=== PATIENT | male | born 1970 | race Caucasian/White ===

== ENCOUNTER 2017-06-15 11:33 | Emergency (ER) | payer MEDICAID ==
--- NOTE | 2017-06-15 13:27 | ED Physician Documentation ---
History of Present Illness - Stated complaint Stated Complaint: R SIDE FACIAL PX - Chief complaint Chief Complaint: General - History obtained from History obtained from: Patient - History of Present Illness Timing: Other (47-year-old gentleman on lisinopril long-term for blood pressure presents with painful swelling under the right side of the tongue for 3 days not associated with fever or URI symptoms. There is no difficulty breathing.) Review of Systems Constitutional: denies: Fever, Chills Nose: denies: Rhinorrhea / runny nose, Congestion Cardiac: denies: Chest pain / pressure, Palpitations PD PAST MEDICAL HISTORY - Present Medications Home Medications: Ambulatory Orders Medication Instructions Recorded Confirmed Amox/Clav 875/125 [Augmentin] 1 each PO Q12H #20 tablet 06/15/17 HYDROcod/ACETAM 5/325 [[place] 5/325] 1 - 2 ea PO Q6H PRN #10 tablet 06/15/17 Lisinopril 40 mg PO DAILY 06/15/17 - Allergies Allergies/Adverse Reactions: Allergies Allergy/AdvReac Type Severity Reaction Status Date / Time No Known Drug Allergies Allergy Verified 06/15/17 11:42 PD ED PE NORMAL - Vitals Vital signs reviewed: Yes - General General: Alert and oriented X 3, No acute distress - HEENT HEENT: Other (He is mostly edentulous on the right mandible, no tender teeth. He does have focal sublingual edema on the right side with tenderness there most consistent with a salivary gland infection. Lisinopril related angioedema is considered, but that entity is painless and therefore inconsistent with this. ) - Neck Neck: Supple, no meningeal sign, No bony TTP - Neuro Neuro: Alert and oriented X 3, Normal speech Results - Vitals Vitals: Vital Signs - 24 hr 06/15/17 11:39 Temperature 36.5 C Heart Rate 91 Respiratory 18 Rate Blood Pressure 126/93 H O2 Saturation 98 Oxygen O2 Source Room air Departure - Departure Disposition: 01 Home, Self Care Clinical Impression: Sublingual infection Record reviewed to determine appropriate education?: Yes Prescriptions: Amox/Clav 875/125 [Augmentin] 1 each PO Q12H #20 tablet HYDROcod/ACETAM 5/325 [[place] 5/325] 1 - 2 ea PO Q6H PRN #10 tablet PRN Reason: Pain Comments: As discussed, this seems consistent with a salivary gland infection under the tongue on the right. Use lemon heads to keep the saliva moving. Return anytime if worse or if running a fever or for any difficulty breathing. Follow-up with your doctor on Sunday for recheck.
[2017-06-15 13:38] VITALS: BP 125/89
== END 2017-06-15 13:37 | disposition home or self-care (01) ==
LOC: ED 11:33
DX: K11.20 Sialoadenitis, unspecified (principal); I10 Essential (primary) hypertension
CPT/HCPCS: 99283

== ENCOUNTER 2018-01-31 15:43 | Emergency (ER) | payer MEDICAID ==
[2018-01-31] MEDS ORDERED: CLINDAMYCIN 150 MG CAPSULE PO STA (16:14)
--- NOTE | 2018-01-31 16:16 | ED Physician Documentation ---
History of Present Illness - Stated complaint Stated Complaint: L DOBBINS PX - Chief complaint Chief Complaint: Wound - History obtained from History obtained from: Patient - History of Present Illness Timing: How many days ago (several days) Pain level max: 3 Pain level now: 3 - Additonal information Additional information: Patient is a 47-year-old male who states that he injured his left dobbins And a few days ago started noticing redness that is now spreading on the left dobbins. No fevers. No vomiting. Has not taken anything for this. Nothing makes it better or worse. Review of Systems Constitutional: denies: Fever, Chills Skin: denies: Rash Musculoskeletal: denies: Neck pain, Back pain PD PAST MEDICAL HISTORY - Past Medical History Past Medical History: Yes Cardiovascular: Hypertension - Past Surgical History Past Surgical History: No - Present Medications Home Medications: Ambulatory Orders Medication Instructions Recorded Confirmed Amox/Clav 875/125 [Augmentin] 1 each PO Q12H #20 tablet 06/15/17 HYDROcod/ACETAM 5/325 [[place] 5/325] 1 - 2 ea PO Q6H PRN #10 tablet 06/15/17 Lisinopril 40 mg PO DAILY 06/15/17 Clindamycin HCl [Clindamycin 300MG 300 mg PO Q6H #40 capsule 01/31/18 CAP] - Allergies Allergies/Adverse Reactions: Allergies Allergy/AdvReac Type Severity Reaction Status Date / Time No Known Drug Allergies Allergy Verified 06/15/17 11:42 - Living Situation Living Arrangement: reports: At home - Social History Does the pt smoke?: Yes Smoking Status: Current every day smoker Does the pt drink ETOH?: Yes Does the pt have substance abuse?: No - Immunizations Immunizations are current?: Yes PD ED PE NORMAL - Vitals Vital signs reviewed: Yes - General General: Alert and oriented X 3, No acute distress - Derm Derm: Warm and dry - Extremities Extremities: Other (Left dobbins - 4 x 4 centimeter erythematous area without swelling, induration or fluctuance. No drainage.) - Neuro Neuro: Alert and oriented X 3 - Psych Psych: Normal mood, Normal affect Results - Vitals Vitals: Vital Signs - 24 hr 01/31/18 15:46 Temperature 36.7 C Heart Rate 91 Respiratory 18 Rate Blood Pressure 166/105 H O2 Saturation 100 Oxygen O2 Source Room air PD MEDICAL DECISION MAKING - ED course Complexity details: considered differential, d/w patient ED course: Patient is a 47-year-old male with cellulitis to the left anterior dobbins. Bactrim interacts with his lisinopril, therefore will place on clindamycin. He is well-appearing, nontoxic. Afebrile. Tetanus is up-to-date. Patient counseled regarding signs and symptoms for which I believe and urgent re- evaluation would be necessary. Patient with good understanding of and agreement to plan and is comfortable going home at this time This document was made in part using voice recognition software. While efforts are made to proofread this document, sound alike and grammatical errors may occur. Departure - Departure Disposition: 01 Home, Self Care Clinical Impression: Cellulitis Qualifiers: Site of cellulitis: extremity Site of cellulitis of extremity: lower extremity Laterality: left Qualified Code(s): L03.116 - Cellulitis of left lower limb Condition: Good Instructions: ED Infec Skin Cellulitis Follow-Up: your,doctor in 3 days for wound check [Other] Prescriptions: Clindamycin HCl [Clindamycin 300MG CAP] 300 mg PO Q6H #40 capsule Comments: Your prescription was sent to [facility] in [place]. Take all antibiotics until gone. Return if you worsen.
[2018-01-31 16:26] VITALS: BP 143/85
== END 2018-01-31 16:27 | disposition home or self-care (01) ==
LOC: ED 15:43
DX: L03.116 Cellulitis of left lower limb (principal); I10 Essential (primary) hypertension; F17.200 Nicotine dependence, unspecified, uncomplicated
CPT/HCPCS: 99283; A9270

== ENCOUNTER 2018-02-07 22:25 | Emergency (ER) | payer MEDICAID ==
[2018-02-07] MEDS ORDERED: VANCOMYCIN INJ 1 GM in SODIUM CHLORIDE 0.9% 500 ML IV STA (22:41)
[2018-02-07] MEDS ORDERED: ceFAZolin 2 GM/50 ML 2 GM/50 ML BAG IV SCH (22:45)
--- NOTE | 2018-02-07 22:48 | ED Physician Documentation ---
History of Present Illness - Stated complaint Stated Complaint: LT LEG PX - Chief complaint Chief Complaint: Ext Problem - History obtained from History obtained from: Patient, Family - History of Present Illness Timing: How many weeks ago (04/03) - Additonal information Additional information: 47-year-old male who has had some redness and pain on the anterior left calf for 2 and half weeks was seen in the emergency department 1 week ago and started on some clindamycin for cellulitis. He has had no significant improvement in the area of redness and over the last 2 days the redness has increased as well as pain. He states that over the past week his symptoms have been mostly abated but have not improved. He denies any fever nausea or vomiting but does feel fatigued. Review of Systems Constitutional: reports: Fatigue. denies: Fever, Chills, Myalgias Eyes: denies: Decreased vision Ears: denies: Ear pain Nose: denies: Rhinorrhea / runny nose, Congestion Throat: denies: Sore throat Cardiac: denies: Chest pain / pressure, Palpitations Respiratory: denies: Dyspnea, Cough GI: denies: Abdominal Pain, Nausea, Vomiting : denies: Dysuria, Frequency Skin: reports: Other (red tender swollen area left anterior dobbins) Musculoskeletal: reports: Extremity pain, Extremity swelling. denies: Neck pain, Back pain Neurologic: denies: Generalized weakness, Focal weakness, Numbness PD PAST MEDICAL HISTORY - Past Medical History Cardiovascular: Hypertension - Past Surgical History Past Surgical History: No - Present Medications Home Medications: Ambulatory Orders Medication Instructions Recorded Confirmed Lisinopril 40 mg PO DAILY 06/15/17 Clindamycin HCl [Clindamycin 300MG 300 mg PO Q6H #40 capsule 01/31/18 CAP] Cephalexin [Keflex] 500 mg PO Q6H #28 capsule 02/08/18 Sulfamethox/Trimeth 800/160 1 each PO BID #14 tablet 02/08/18 [Bactrim Ds 800/160] - Allergies Allergies/Adverse Reactions: Allergies Allergy/AdvReac Type Severity Reaction Status Date / Time No Known Drug Allergies Allergy Verified 02/07/18 22:31 - Social History Does the pt smoke?: Yes Smoking Status: Current every day smoker Does the pt drink ETOH?: Yes Does the pt have substance abuse?: No - Immunizations Immunizations are current?: Yes PD ED PE NORMAL - Vitals Vital signs reviewed: Yes (hypertensive) - General General: Alert and oriented X 3, No acute distress, Well developed/nourished - HEENT HEENT: Atraumatic, PERRL, EOMI - Respiratory Respiratory: No respiratory distress - Derm Derm: Normal color, Warm and dry - Extremities Extremities: No deformity, Other (There is erythema and tenderness over the anterior left calf centrally. There is an area of skin desquamation surrounding the erythema and the erythema has now extended past this border. There is no fluctuance to the area and no lymphangitic streaking. 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, No motor deficit, No sensory deficit, Normal speech Eye Opening: Spontaneous Motor: Obeys Commands Verbal: Oriented GCS Score: 15 - Psych Psych: Normal mood, Normal affect Results - Vitals Vitals: Vital Signs - 24 hr 02/07/18 22:28 Temperature 36.6 C Heart Rate 92 Respiratory 18 Rate Blood Pressure 164/94 H O2 Saturation 98 Oxygen O2 Source Room air - Labs Labs: Laboratory Tests 02/07/18 02/07/18 02/07/18 22:52 22:52 22:52 WBC 7.6 RBC 4.40 L Hgb 12.5 L Hct 36.7 L MCV 83.4 MCH 28.3 MCHC 34.0 RDW 16.3 H Plt Count 255 MPV 7.2 L Neut # (Auto) 4.6 Lymph # (Auto) 2.1 Saline # (Auto) 0.7 Eos # (Auto) 0.2 Baso # (Auto) 0.1 Absolute Nucleated RBC 0.00 Nucleated RBC % 0.0 Sodium 138 Potassium 3.7 Chloride 103 Carbon Dioxide 24 Anion Gap 11.0 BUN 14 Creatinine 0.7 Estimated GFR (MDRD) 120 Glucose 126 H Lactic Acid 1.2 Calcium 9.0 Total Bilirubin 0.7 AST 41 ALT 27 Alkaline Phosphatase 112 Total Protein 7.7 Albumin 3.8 Globulin 3.9 Albumin/Globulin Ratio 1.0 Lipase 40 PD MEDICAL DECISION MAKING - ED course Complexity details: reviewed results, re-evaluated patient, considered differential, d/w patient, d/w family ED course: 47-year-old male with no progress on treatment of cellulitis of his anterior calf with the use of clindamycin is administered intravenous vancomycin and Ancef and we will place him on some and flex as an outpatient. He has had a slow progression of symptoms despite outpatient treatment and I do not believe that inpatient treatment is indicated at this time. He is asked to return to the emergency department should he have failure of this treatment. Departure - Departure Disposition: 01 Home, Self Care Clinical Impression: Cellulitis Qualifiers: Site of cellulitis: extremity Site of cellulitis of extremity: lower extremity Laterality: left Qualified Code(s): L03.116 - Cellulitis of left lower limb Condition: Stable Instructions: ED Infec Skin Cellulitis Follow-Up: [facility] [Provider Group] [facility] [Provider Group] Prescriptions: Cephalexin [Keflex] 500 mg PO Q6H #28 capsule Sulfamethox/Trimeth 800/160 [Bactrim Ds 800/160] 1 each PO BID #14 tablet
[2018-02-07 22:58] LABS: BASOPHILS # (AUTO) 0.1 10^3/uL (0.0-0.1); BASOPHILS % (AUTO) 0.7 %; EOSINOPHILS # (AUTO) 0.2 10^3/uL (0.0-0.7); EOSINOPHILS % (AUTO) 2.3 %; HGB - HEMOGLOBIN 12.5 g/dL (14.0-18.0); LYMPHOCYTES # (AUTO) 2.1 10^3/uL (1.5-3.5); LYMPHOCYTES % (AUTO) 27.3 %; MEAN CORPUSCULAR HEMOGLOBIN 28.3 pg (27.0-31.0); MEAN CORPUSCULAR VOLUME 83.4 fL (80.0-94.0); MEAN PLATELET VOLUME 7.2 fL (7.4-11.4); MONOCYTES # (AUTO) 0.7 10^3/uL (0.0-1.0); MONOCYTES % (AUTO) 9.5 %; NEUTROPHILS # (AUTO) 4.6 10^3/uL (1.5-6.6); NEUTROPHILS % (AUTO) 60.2 %; PLT - PLATELET COUNT 255 10^3/uL (130-450); RED CELL DISTRIBUTION WIDTH 16.3 % (12.0-15.0); WHITE BLOOD COUNT 7.6 x10^3/uL (4.8-10.8)
[2018-02-07 23:08] LABS: ALBUMIN 3.8 g/dL (3.2-5.5); BILIRUBIN,TOTAL 0.7 mg/dL (0.2-1.0); CREATININE 0.7 mg/dL (0.6-1.2); TOTAL PROTEIN 7.7 g/dL (6.7-8.2)
[2018-02-08] MEDS ORDERED: ceFAZolin 2 GM/50 ML 2 GM/50 ML BAG IV STA (01:38)
[2018-02-08 02:26] VITALS: BP 162/95
== END 2018-02-08 02:28 | disposition home or self-care (01) ==
LOC: ED 22:25
DX: L03.116 Cellulitis of left lower limb (principal); I10 Essential (primary) hypertension; F17.200 Nicotine dependence, unspecified, uncomplicated
CPT/HCPCS: 36415; 80053; 83605; 83690; 85025; 87040; 96365; 96366; 96367; 99283; J0690; J3370

== ENCOUNTER 2018-03-02 19:47 | Emergency (ER) | payer SELFPAY ==
[2018-03-02] MEDS ORDERED: SULFAMETH/TRIMETH DS 800/160 MG TABLET PO STA (20:06)
[2018-03-02] MEDS ORDERED: cephALEXin 250 MG CAPSULE PO STA (20:06)
--- NOTE | 2018-03-02 20:08 | ED Physician Documentation ---
PD HPI LOWER EXT INJURY - Stated complaint Stated Complaint: LT LEG INFECTION - Chief complaint Chief Complaint: Ext Problem - History obtained from History obtained from: Patient - History of Present Illness PD HPI LOW EXT INJURY LOCATION: Left, Lower leg (He had a little scrape on the lower left leg about a month and a half ago and developed cellulitis. He was initially seen here and placed on clindamycin, he had no improvement with that but did have improvement pretty much back to normal after a course of Keflex and Bactrim. He has been off of antibiotics for about 2-1/2 weeks but over the last few days the area of cellulitis has grown again. He denies fevers or chills. 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 plus is leaning on his shins a lot.) Review of Systems Constitutional: denies: Fever, Chills Respiratory: reports: Reviewed and negative GI: reports: Reviewed and negative : reports: Reviewed and negative PD PAST MEDICAL HISTORY - Past Medical History Cardiovascular: Hypertension Derm: Other - Past Surgical History Past Surgical History: No - Present Medications Home Medications: Ambulatory Orders Medication Instructions Recorded Confirmed Lisinopril 40 mg PO DAILY 06/15/17 Clindamycin HCl [Clindamycin 300MG 300 mg PO Q6H #40 capsule 01/31/18 CAP] Cephalexin [Keflex] 500 mg PO Q6H #80 capsule 03/02/18 Sulfamethoxazole/Trimethoprim 1 each PO BID #40 tablet 03/02/18 [Sulfamethoxazole-Tmp Ds Tablet] - Allergies Allergies/Adverse Reactions: Allergies Allergy/AdvReac Type Severity Reaction Status Date / Time No Known Drug Allergies Allergy Verified 03/02/18 19:53 - Social History Does the pt smoke?: Yes Smoking Status: Current every day smoker Does the pt drink ETOH?: Yes Does the pt have substance abuse?: No - Immunizations Immunizations are current?: Yes - POLST Patient has POLST: No PD ED PE NORMAL - Vitals Vital signs reviewed: Yes - General General: Alert and oriented X 3, No acute distress - Extremities Extremities: Other (On the anterior left dobbins there is a 6 x 6 area of cellulitis that is well demarcated. There is kind of a scab at the top but no purulent drainage. There are 2 very small slightly firm areas which on bedside ultrasound [place] no fluid collections.) - Neuro Neuro: Alert and oriented X 3, Normal speech Results - Vitals Vitals: Vital Signs - 24 hr 03/02/18 19:50 Temperature 36.6 C Heart Rate 89 Respiratory 16 Rate Blood Pressure 155/90 H O2 Saturation 100 Oxygen O2 Source Nasal cannula Departure - Departure Disposition: Home, Self Care Clinical Impression: Cellulitis Qualifiers: Site of cellulitis: extremity Site of cellulitis of extremity: lower extremity Laterality: left Qualified Code(s): L03.116 - Cellulitis of left lower limb Condition: Good Record reviewed to determine appropriate education?: Yes Instructions: Cellulitis Dc Prescriptions: Cephalexin [Keflex] 500 mg PO Q6H #80 capsule Sulfamethoxazole/Trimethoprim [Sulfamethoxazole-Tmp Ds Tablet] 1 each PO BID #40 tablet Comments: Call your doctor to arrange a follow-up appointment, make the next available appointment. In the interim, return anytime if worse or if new symptoms develop. Your blood pressure was elevated today on check into the emergency department. This does not mean that you have hypertension, it is a common phenomenon to come to the emergency department and have elevated blood pressure. I recommend that you see your primary care physician within the week to have it rechecked when you are feeling better.
[2018-03-02 20:12] VITALS: BP 155/90
== END 2018-03-02 20:13 | disposition home or self-care (01) ==
LOC: ED 19:47
DX: L03.116 Cellulitis of left lower limb (principal); I10 Essential (primary) hypertension; F17.200 Nicotine dependence, unspecified, uncomplicated
CPT/HCPCS: 99283; A9270

== ENCOUNTER 2019-01-01 15:47 | Inpatient (IN) | payer MEDICAID ==
[~2019-01-01 15:47] MED LIST: DEXAMETHASONE 4 MG/ML VIAL IVP ONE; LIDOCAINE-MPF 2% 5 ML VIAL IM ONE; MIDAZOLAM 2 MG/2 ML VIAL IVP ONE; ONDANSETRON 4 MG/2 ML VIAL IVP ONE; PROPOFOL 200 MG/20 ML VIAL IVP ONE; fentaNYL 100 MCG/2 ML VIAL IVP ONE
[2019-01-01] MEDS ORDERED: ceFAZolin 1 GM in SODIUM CHLORIDE 0.9% MINIBAG 100 ML IV STA (18:33)
[2019-01-01] MEDS ORDERED: KETOROLAC 30 MG/ML VIAL IVP STA (18:33)
[2019-01-01] MEDS ORDERED: HYDROmorphone 1 MG/ML CARPUJECT IVP STA ×2 (18:34→19:48)
[2019-01-01 19:01] LABS: BASOPHILS % (AUTO) 0.3 %; EOSINOPHILS % (AUTO) 0.8 %; HGB - HEMOGLOBIN 11.9 g/dL (14.0-18.0); LYMPHOCYTES % (AUTO) 6.4 %; MEAN CORPUSCULAR HEMOGLOBIN 28.7 pg (27.0-31.0); MEAN CORPUSCULAR HGB CONC 33.4 g/dL (32.0-36.0); MEAN CORPUSCULAR VOLUME 85.8 fL (80.0-94.0); MEAN PLATELET VOLUME 9.7 fL (7.4-11.4); MONOCYTES % (AUTO) 14.3 %; NEUTROPHILS % (AUTO) 76.9 %; PLT - PLATELET COUNT 166 10^3/uL (130-450); RED BLOOD COUNT 4.15 10^6/uL (4.70-6.10); RED CELL DISTRIBUTION WIDTH 14.3 % (12.0-15.0); WHITE BLOOD COUNT 13.3 x10^3/uL (4.8-10.8)
[2019-01-01 19:06] LABS: ALBUMIN 3.1 g/dL (3.2-5.5); ALBUMIN/GLOBULIN RATIO 0.8 (1.0-2.2); BILIRUBIN,TOTAL 1.9 mg/dL (0.2-1.0); CALCIUM 8.7 mg/dL (8.5-10.3); CREATININE 0.7 mg/dL (0.6-1.2); TOTAL PROTEIN 7.2 g/dL (6.7-8.2)
[2019-01-01 19:07] LABS: ABNORMAL LYMPHS % (MANUAL) 0 %
[2019-01-01 19:22] LABS: BAND NEUTROPHILS % (MANUAL) 8 %; DIFFERENTIAL COMMENT MANUAL DIFFERENTIAL; EOSINOPHILS # (MANUAL) 0.1 10^3/uL (0-0.7); LYMPHOCYTES # (MANUAL) 0.9 10^3/uL (1.5-3.5); LYMPHOCYTES % (MANUAL) 7 %; MONOCYTES # (MANUAL) 1.9 10^3/uL (0.0-1.0); PLATELET ESTIMATE, MANUAL NORMAL (130-450,000) (NORMAL); PLATELET MORPHOLOGY NORMAL APPEARANCE (NORMAL); RBC MORPHOLOGY (MULTIPLE) NORMAL APPEARANCE (NORMAL)
[2019-01-01] MEDS ORDERED: ONDANSETRON 4 MG/2 ML VIAL IVP PRN (20:14)
[2019-01-01] MEDS ORDERED: HYDROmorphone 1 MG/ML CARPUJECT IVP PRN (20:14)
[2019-01-01] MEDS ORDERED: LACTATED RINGERS 2,449.41 ML IV STA (20:16)
[2019-01-01] MEDS ORDERED: POTASSIUM CHLORIDE 20 MEQ TABLET PO STA (20:23)
[2019-01-01] MEDS ORDERED: IOVERSOL 320 100 ML VIAL IVP ONE ×2 (20:27→20:45)
--- NOTE | 2019-01-01 20:34 | HISTORY & PHYSICAL EXAMINATION ---
Chief Complaint - Chief Complaint Chief Complaint: Right forearm pain and swelling History of Present Illness - Admitted From Admitted From:: Home - History Obtained From Records Reviewed: Yes History obtained from: Patient, ER Physician, EMR - History of Present Illness HPI Comment/Other: This is a 48 year old male with a past medical history significant for hypertension and alcohol use who presents from home complaining of worsening swelling, erythema, and pain of his right forearm. He reports the pain began Sunday and was initially located in his right wrist. He went to the ER where he was treated for acute gout. He states he went home but his pain never really improved. He then noted swelling in his right hand and redness. Today the pain became much more severe and the swelling along with erythema spread to his right elbow over 5-6 hours. He reports numbness of his right finger tips. He has severe pain with palpation of the right forearm and movement of his digits. The dilaudid he received in the ER today provided some relief but the pain persists. He reports no trauma to the extremity. He was working on his deck last week but does not recall major trauma to his extremities. He does have a few minor scrapes on his arms. He reports no fevers or chills. Does endorse some nausea today but no emesis. He is not a diabetic. He had cellulitis of his left lower extremity in the past. He states he was not admitted and was treated with oral antibiotics. He denies IV drug use. He does drink alcohol daily for quite some time but reports only having half a drink this morning since Sunday due to his discomfort. He denies going through withdrawal in the past. In the ER, he was afebrile, tachycardic, and slightly hypertensive. Labs were significant for a white count of 13.3 with a left shift and 8% bands. ESR is elevated at 72. He is hyponatremic and hypokalemic. BUN elevated at 27 with a normal creatinine. T bili elevated at 1.9 and AST at 44. Normal CK's. Medicine was consulted for admission given the severity of his cellulitis. History - Past Medical History Cardiovascular: reports: Hypertension Respiratory: reports: None Neuro: reports: None Endocrine/Autoimmune: reports: None GI: reports: None Derm: reports: Other (Piror history of cellulitis) MRSA Hx?: No - Family & Social History Family History Comment/Other: There is family history of heart diseases on his mother's side. His two uncles had WA's in their 40's. His maternal grandfather also had a WA. Living arrangement: At home Social History Notes: He lives on [address] [facility] [address]. He does smoke. Drinks a 6 pack of beer daily. Reports occasional marijuana use. Denies IV drug use. - Substance History Use: Uses substance without health or social issues: Alcohol - POLST Patient has POLST: No Meds/Allgy - Home Medications Home Medications: Ambulatory Orders Medication Instructions Recorded Confirmed Lisinopril 40 mg PO DAILY 06/15/17 Hydrocodone/Acetaminophen 1 - 2 each PO Q6H PRN #14 tablet 12/28/18 [Hydrocodon-Acetaminophen 5-325] Indomethacin 50 mg PO Q6HR PRN #30 capsule 12/28/18 - Allergies Allergies/Adverse Reactions: Allergies Allergy/AdvReac Type Severity Reaction Status Date / Time No Known Drug Allergies Allergy Verified 01/01/19 15:57 Review of Systems - Constitutional Constitutional: reports: Fatigue, Malaise. denies: Fever, Chills - Cardiovascular Cariovascular: denies: Chest pain, Exertional dyspnea, Decr. exercise tolerance - Respiratory Respiratory: denies: Cough, SOB at rest, SOB with exertion - Gastrointestinal Gastrointestinal: reports: Nausea. denies: Abdominal pain, Diarrhea, Vomiting - Genitourinary Genitourinary: denies: Dysuria, Frequency - Musculoskeletal Musculoskeletal: reports: Stiffness, Limited range of motion - Integumentary Integumentary: reports: Other (Redness of right extremity) - Neurological Neurological: reports: Numbness. denies: General weakness, Focal weakness - All Other Systems All Other Systems: reports: Reviewed and negative Prior Level of Functionality: Independent with ADL's. Exam - Vital Signs Reviewed Vital Signs: Yes Vital Signs: Vital Signs x48h Temp Pulse Resp BP Pulse Ox 01/01/19 20:00 103 H 16 149/83 H 98 01/01/19 19:30 103 H 16 137/79 H 98 01/01/19 19:04 99 19 148/76 H 100 01/01/19 18:16 95 16 132/76 H 100 01/01/19 15:57 36.6 C 98 18 138/75 H 100 - Physical Exam General Appearance: positive: No acute distress, Alert Eyes Bilateral: positive: Normal inspection ENT: positive: ENT inspection nml Neck: positive: Nml inspection Respiratory: positive: No respiratory distress. negative: Wheezes, Rales, Rhonchi Cardiovascular: positive: Regular rate & rhythm, No murmur, Tachycardia. negative: Bradycardia, Systolic murmur, Diastolic murmur Peripheral Pulses: positive: Other (Difficult to palpate right radial artery due to significant edema) Abdomen: positive: Non-tender, No distention. negative: Tenderness, Guarding, Rebound Skin: positive: Warm, Dry, Other (Erythem of the right forearm extending from the dorsum of the hand to the right elbow.) Extremities: positive: No pedal edema, Other (There is significant edema with a few small bullae of the right forearm. No crepitus appreciated. Decreased range of motion due to the edema. Capillar refill of right digits <2 seconds. The arm is tender to palpation. Sensation is intact.). negative: Non-tender, Full ROM, Nml appearance Neurologic/Psychiatric: positive: Oriented x3, Sensation nml. negative: Disoriented to person, Disoriented to place, Disoriented to time, Weakness, Sensory loss Sepsis Event Note (H) - Evaluation Current Stage of Sepsis: Sepsis Possible source of Sepsis: positive: Skin/soft tissue - Sepsis Criteria Sepsis Criteria: Recorded Heart Rate greater than 90 bpm, WBC count greater than 12,000 or less than 4000 Conclusion/Plan - Problem List (1) Sepsis due to cellulitis Conclusion/Plan: This is secondary to his right forearm cellulitis. Presented with leukocytosis with bands along with tachycardia. He is not febrile or hypotensive. - Broad spectrum antibiotic coverage with Vancomycin, Unasyn and Clindamycin - IV hydration including 30ml/kg bolus - Blood cultures (2) Right forearm cellulitis Conclusion/Plan: This is the source of his sepsis. This is nonpurulent cellulitis but there is extensive edema, pain and bullae over the dorsum of the hand are noted. His neurovascularly intact although he does report some numbness in his finger tips. ESR and CRP elevated. Normal CK, AST is only minimally elevated. Given the progression of his edema and pain, will need to evaluate for nec fasc. LRINEC score is 3 but CRP is pending. Receiving Cefazolin in the ER. - Clindamycin, Unasyn and Vancomycin IV given concern for possible nec fasc - Obtain CT of the right upper extremity to eval for gas formation which may be concerning for nec fasc - Check CRP - Neurovascular checks - Blood cultures - Trend CK and AST (3) Hyponatremia Conclusion/Plan: Likely hypovolemic hyponatremia. Sodium 132. This should improve with IV hydration. (4) Hypokalemia Conclusion/Plan: K is 3.3 on admission. Will replace orally. (5) Alcohol use Conclusion/Plan: Drinks a 6 pack of beer daily but has decreased his consumption over last few days. Will monitor for alcohol withdrawal. - Lab Results Lab results reviewed: Yes Fish Bones: 01/01/19 18:40 01/01/19 18:40 Core Measures - Anticipated LOS I expect patient to be DC'd or transferred within 96 hours.: Yes - Issues Hospital Issues and Management Plan: Cellulitis requiring IV antibiotics. - DVT/VTE - Prophylaxis VTE/DVT Device ordered at admit?: Yes VTE/DVT Prophylaxis med ordered at admit?: Yes
[2019-01-01] MEDS: LACTATED RINGERS 1,000 ML IV SCH (21:11)
[2019-01-01 21:16] LABS: GLUCOSE, URINE (UA) NEGATIVE (NEGATIVE); KETONES,URINE (UA) NEGATIVE (NEGATIVE); LEUKOCYTE ESTERASE, URINE NEGATIVE (NEGATIVE); NITRITE,URINE NEGATIVE (NEGATIVE); OCCULT BLOOD,URINE SMALL (NEGATIVE); PROTEIN,URINE NEGATIVE (NEGATIVE); UROBILINOGEN,URINE 2 E.U./dL (NORMAL)
[2019-01-01 21:28] LABS: BILIRUBIN,URINE NEGATIVE (NEGATIVE); CLARITY,URINE CLEAR (CLEAR); ICTOTEST,URINE NEGATIVE
[2019-01-01 21:29] LABS: BACTERIA,URINE Rare /HPF (None Seen); RBC,URINE 0-5 /HPF (0-5); SQUAMOUS EPITHELIAL CELL,UR FEW Squamous (<= Few)
[2019-01-01] MEDS: CLINDAMYCIN 600 MG/50 ML 50 ML IV SCH (22:07)
[2019-01-01] MEDS: SODIUM CHLORIDE FLUSH 0.9% 10 ML SYRINGE IVP PRN (22:11)
--- NOTE | 2019-01-01 22:14 | CT Report ---
Reason: Right forearm cellulitis. Eval for Nec Fasc. Procedure Date: 01/01/2019 Accession Number: [id number] / [id number] Procedure: CT - UPPER EXTREMITY W - RT CPT Code: FULL RESULT: EXAM: RIGHT UPPER EXTREMITY CT WITH CONTRAST EXAM DATE: 01/01/2019 08:37 PM. CLINICAL HISTORY: Right forearm cellulitis. Redness and swelling. Evaluate for necrotizing fasciitis. COMPARISON: DUPLEX EXT VEINS RIGHT 12/28/2018 12:46 PM WRIST 4 VIEW RT 12/28/2018 2:24 PM. TECHNIQUE: Thin-section axial images were acquired of the upper extremity from above the elbow through the hand after administration of intravenous contrast. IV contrast: Yes. Post-processing: Coronal and sagittal reformats. Other: None. In accordance with CT protocol optimization, one or more of the following dose reduction techniques were utilized for this exam: automated exposure control, adjustment of mA and/or KV based on patient size, or use of iterative reconstructive technique. FINDINGS: Bones: No fracture or CT evidence of osteomyelitis. Joints: The visualized joint spaces are normal. Soft tissues: Severe subcutaneous edema without soft tissue gas. There are large fluid loculations surrounding the extensor tendons posteriorly at the level of the carpus. A couple of small intramuscular fluid collections within the intrinsic muscles of the hand palmar to the second through fourth metacarpals measuring up to 17 x 5 mm combined on image 182 series 14 and extending 20 mm in craniocaudal dimension on image 16 series 38. Additional small loculations of fluid adjacent to the base of the first metacarpal. Additional deep space edema/loculated fluid between the distal radius and ulna on axial images 128 through 140, measuring approximately 19 x 9 x 45 mm. No proximal forearm abscess identified. No vascular thrombosis seen. IMPRESSION: Severe right forearm soft tissue infection, which involves the subcutaneous tissues but crosses fascial planes to involve the extensor tendons posterior to the wrist (suspect tenosynovitis} and is within and around musculature in the distal forearm and palmar aspect of the hand at the level of the second through fourth metacarpals (pyomyositis). No tracking soft tissue gas seen. Surgical consultation suggested. ELIZABETH The critical result notification system was initiated by Dr. Nathan Bravo at 10:05 PM on 01/01/2019. The above critical result findings were discussed with Edward Gates by Dr. Nathan Bravo at 10:13 PM on 01/01/2019.
[2019-01-01] MEDS ORDERED: VANCOMYCIN INJ 1.25 GM in SODIUM CHLORIDE 0.9% 500 ML IV SCH (23:00)
--- NOTE | 2019-01-02 00:09 | ED Physician Documentation ---
PD HPI SKIN - Stated complaint Stated Complaint: R HAND SWELLING - Chief complaint Chief Complaint: Cardiac - History obtained from History obtained from: Patient - History of Present Illness Timing - onset: How many days ago (He has had 4 to 5 days of redness and swelling on the dorsum of the wrist and hand initially after doing some desk work and repetitive motion. He was seen in the ER 4 days ago with diagnosis of likely gout in the wrist as he has had a history of gout in the foot and did not have any direct impact or injury nor skin lesions. He was treated with anti- inflammatories and pain meds. The patient states he is worsened over the last couple of days significantly so with redness and swelling up to the level of the elbow on the whole forearm and wrist and with some swelling in the fingers as well. He has had increased pain in it today.) Timing - duration: Days (4-5) Timing - details: Gradual onset, Still present Location: RUE Quality / character: Painful, Discolored (red), Swelling, Other (some blisters starting on dorsum hand today.). No: Draining Improved by: No: Oral steroids Review of Systems Constitutional: reports: Myalgias. denies: Fever, Chills Nose: denies: Rhinorrhea / runny nose, Congestion Throat: denies: Sore throat Respiratory: denies: Cough GI: denies: Nausea, Vomiting, Diarrhea Musculoskeletal: reports: Extremity pain, Extremity swelling (right forearm/wrist) PD PAST MEDICAL HISTORY - Past Medical History Past Medical History: Yes Cardiovascular: Hypertension Respiratory: None Neuro: None Endocrine/Autoimmune: None GI: None Derm: Other (Piror history of cellulitis) - Past Surgical History Past Surgical History: No - Present Medications Home Medications: Ambulatory Orders Medication Instructions Recorded Confirmed Lisinopril 40 mg PO DAILY 06/15/17 Hydrocodone/Acetaminophen 1 - 2 each PO Q6H PRN #14 tablet 12/28/18 [Hydrocodon-Acetaminophen 5-325] Indomethacin 50 mg PO Q6HR PRN #30 capsule 12/28/18 - Allergies Allergies/Adverse Reactions: Allergies Allergy/AdvReac Type Severity Reaction Status Date / Time No Known Drug Allergies Allergy Verified 01/01/19 15:57 - Social History Does the pt smoke?: Yes Smoking Status: Current every day smoker Does the pt drink ETOH?: Yes Does the pt have substance abuse?: No - Immunizations Immunizations are current?: Yes - POLST Patient has POLST: No PD ED PE NORMAL - Vitals Vital signs reviewed: Yes - General General: Alert and oriented X 3, No acute distress (He does appear uncomfortable due to the hand and forearm pain.), Well developed/nourished - Neck Neck: Supple, no meningeal sign, No adenopathy - Cardiac Cardiac: RRR, No murmur - Respiratory Respiratory: Clear bilaterally - Abdomen Abdomen: Soft, Non tender - Derm Derm: Normal color, Warm and dry - Extremities Extremities: Other (The right dorsum of the hand and wrist onto the forearm and up to the area of the elbow shows redness and swelling. There is some more tense swelling on the dorsum of the hand with early blistering. There are no obvious purulence. His fingers are swollen as well with normal sensation. He has diminished movement for full flexion and extension due to swelling of the hand and fingers. There is somewhat delayed capillary refill in the fingers but is still present under 2 seconds. The radial and ulnar pulses are palpable) - Neuro Neuro: Alert and oriented X 3, No motor deficit, No sensory deficit, Normal speech Results - Vitals Vitals: Vital Signs - 24 hr 01/01/19 01/01/19 01/01/19 15:57 18:16 19:04 Temperature 36.6 C Heart Rate 98 95 99 Respiratory 18 16 19 Rate Blood Pressure 138/75 H 132/76 H 148/76 H O2 Saturation 100 100 100 01/01/19 01/01/19 19:30 20:00 Temperature Heart Rate 103 H 103 H Respiratory 16 16 Rate Blood Pressure 137/79 H 149/83 H O2 Saturation 98 98 Oxygen O2 Source Room air - Labs Labs: Laboratory Tests 01/01/19 01/01/19 01/01/19 18:40 18:40 18:40 WBC 13.3 H RBC 4.15 L Hgb 11.9 L Hct 35.6 L MCV 85.8 MCH 28.7 MCHC 33.4 RDW 14.3 Plt Count 166 MPV 9.7 Neut # (Auto) Not Reportable Lymph # (Auto) Not Reportable [place] # (Auto) Not Reportable Eos # (Auto) Not Reportable Baso # (Auto) Not Reportable Absolute Nucleated RBC Not Reportable Total Counted 100 Band Neuts % (Manual) 8 Abnorm Lymph % (Manual) 0 Nucleated RBC % Not Reportable Neutrophils # (Manual) 10.4 H Lymphocytes # (Manual) 0.9 L Monocytes # (Manual) 1.9 H Eosinophils # (Manual) 0.1 Basophils # (Manual) 0.0 Differential Comment MANUAL DIFFERENTIAL Manual Slide Review Indicated Platelet Estimate NORMAL (130-450,000) Platelet Morphology NORMAL APPEARANCE RBC Morph Micro Appear NORMAL APPEARANCE ESR 72 H Sodium 132 L Potassium 3.3 L Chloride 97 L Carbon Dioxide 25 Anion Gap 10.0 BUN 27 H Creatinine 0.7 Estimated GFR (MDRD) 119 Glucose 107 H Calcium 8.7 Total Bilirubin 1.9 H AST 44 H ALT 51 Alkaline Phosphatase 142 H Total Creatine Kinase 213 C-Reactive Protein Total Protein 7.2 Albumin 3.1 L Globulin 4.1 Albumin/Globulin Ratio 0.8 L Lipase 48 01/01/19 18:40 WBC RBC Hgb Hct MCV MCH MCHC RDW Plt Count MPV Neut # (Auto) Lymph # (Auto) [place] # (Auto) Eos # (Auto) Baso # (Auto) Absolute Nucleated RBC Total Counted Band Neuts % (Manual) Abnorm Lymph % (Manual) Nucleated RBC % Neutrophils # (Manual) Lymphocytes # (Manual) Monocytes # (Manual) Eosinophils # (Manual) Basophils # (Manual) Differential Comment Manual Slide Review Platelet Estimate Platelet Morphology RBC Morph Micro Appear ESR Sodium Potassium Chloride Carbon Dioxide Anion Gap BUN Creatinine Estimated GFR (MDRD) Glucose Calcium Total Bilirubin AST ALT Alkaline Phosphatase Total Creatine Kinase C-Reactive Protein 27.0 H Total Protein Albumin Globulin Albumin/Globulin Ratio Lipase PD MEDICAL DECISION MAKING - ED course Complexity details: reviewed results, considered differential (The patient has had progressive redness swelling of not only the wrist but now into the forearm and up to the elbow. He has significant edema in the area with redness. He denies any nausea or fever. He has discomfort with moving his fingers as it correia s feel like stiffness in the hand and wrist. His fingers are little bit swollen. They still have some capillary refill though it is a little bit delayed. There is sensation in the fingertips. The CK is normal suggesting against a compartment syndrome or necrotizing fasciitis.), d/w patient, d/w executive consultant Departure - Departure Disposition: ED Place in Observation Clinical Impression: Right forearm cellulitis Condition: Stable Discharge Date/Time: 01/01/19 20:50
[2019-01-02] MEDS: AMPICILLIN/SULBACTAM 3 GM in SODIUM CHLORIDE 0.9% MINIBAG 100 ML IV SCH ×2 (00:26→08:12)
[2019-01-02] MEDS: KETOROLAC 30 MG/ML VIAL IVP PRN ×4 (00:30→21:12)
[2019-01-02] MEDS: SODIUM CHLORIDE FLUSH 0.9% 10 ML SYRINGE IVP SCH ×3 (00:37→17:30)
[2019-01-02] MEDS: HYDROmorphone 1 MG/ML CARPUJECT IVP PRN ×7 (00:42→21:12)
[2019-01-02] MEDS: SODIUM CHLORIDE FLUSH 0.9% 10 ML SYRINGE IVP PRN ×2 (03:47→12:21)
[2019-01-02 05:54] LABS: BASOPHILS % (AUTO) 0.2 %; EOSINOPHILS % (AUTO) 0.7 %; HGB - HEMOGLOBIN 11.9 g/dL (14.0-18.0); LYMPHOCYTES % (AUTO) 6.7 %; MEAN CORPUSCULAR HEMOGLOBIN 28.3 pg (27.0-31.0); MEAN CORPUSCULAR HGB CONC 32.3 g/dL (32.0-36.0); MEAN CORPUSCULAR VOLUME 87.4 fL (80.0-94.0); MEAN PLATELET VOLUME 9.7 fL (7.4-11.4); MONOCYTES % (AUTO) 15.6 %; NEUTROPHILS % (AUTO) 74.6 %; PLT - PLATELET COUNT 158 10^3/uL (130-450); RED BLOOD COUNT 4.21 10^6/uL (4.70-6.10); RED CELL DISTRIBUTION WIDTH 14.7 % (12.0-15.0); WHITE BLOOD COUNT 15.1 x10^3/uL (4.8-10.8)
[2019-01-02] MEDS: CLINDAMYCIN 600 MG/50 ML 50 ML IV SCH ×3 (05:55→21:02)
[2019-01-02 05:56] LABS: ABNORMAL LYMPHS % (MANUAL) 0 %; BAND NEUTROPHILS % (MANUAL) 0 %
[2019-01-02 06:08] LABS: CALCIUM 8.3 mg/dL (8.5-10.3); CREATININE 0.7 mg/dL (0.6-1.2); MAGNESIUM 2.2 mg/dL (1.7-2.8); PHOSPHORUS 4.5 mg/dL (2.5-4.6)
[2019-01-02 06:14] LABS: EOSINOPHILS # (MANUAL) 0.2 10^3/uL (0-0.7); LYMPHOCYTES # (MANUAL) 1.2 10^3/uL (1.5-3.5); LYMPHOCYTES % (MANUAL) 8 %; MONOCYTES # (MANUAL) 2.3 10^3/uL (0.0-1.0)
[2019-01-02 06:15] LABS: DIFFERENTIAL COMMENT MANUAL DIFFERENTIAL; PLATELET ESTIMATE, MANUAL NORMAL (130-450,000) (NORMAL); PLATELET MORPHOLOGY NORMAL APPEARANCE (NORMAL); RBC MORPHOLOGY (MULTIPLE) NORMAL APPEARANCE (NORMAL)
--- NOTE | 2019-01-02 08:50 | PROVIDER PROGRESS NOTE ---
Subjective - Prog Note Date Prog Note Date: 01/02/19 Prog Note Time: 08:47 - Subjective Pt reports feeling: Improved Subjective: much less swelling of forearm but hand still hot and tender. Pain was unbearable last night at 10/10 and down to 6/10 this am. Current Medications - Current Medications Current Medications: Active Medications Acetaminophen (Tylenol) 650 mg PO Q4HR PRN PRN Reason: Pain 1 to 4 Heparin Sodium (Porcine) () 5,000 unit SUBQ BID FORMERLY [facility], [facility]1983 Last Admin: 01/02/19 09:18 Dose: 5,000 unit Hydromorphone HCl (Dilaudid Inj Carp) 2 mg IVP Q2HR PRN PRN Reason: Pain 8 to 10 Last Admin: 01/02/19 06:45 Dose: 2 mg Lactated Ringer's (Lr) 1,000 mls @ 100 mls/hr IV .Q10H [facility], [facility] Last Admin: 01/01/19 21:11 Dose: 100 mls/hr Clindamycin Phosphate (Cleocin 600 Mg/50 Ml) 50 mls @ 100 mls/hr IV Q8HR [facility], [facility] Last Infusion: 01/02/19 06:25 Dose: Infused Vancomycin HCl 1.25 gm/ Sodium (Chloride) 250 mls @ 250 mls/hr IV Q12H [facility], [facility] Last Admin: 01/02/19 10:01 Dose: 250 mls/hr Piperacillin Sod/Tazobactam (Sod 4.5 gm/ Sodium Chloride) 100 mls @ 200 mls/hr IV Q6H [facility], [facility] Ketorolac Tromethamine (Toradol Inj (30mg)) 30 mg IVP Q6HR PRN PRN Reason: PAIN Stop: 01/06/19 22:48 Last Admin: 01/02/19 06:45 Dose: 30 mg Ondansetron HCl (Zofran Inj) 4 mg IVP Q6HR PRN PRN Reason: Nausea / Vomiting Multivit/Folic Acid/Iron (Trinatal Rx 1) 1 tab PO DAILYWM [facility] Sodium Chloride (Normal Saline Flush 0.9%) 10 ml IVP PRN PRN PRN Reason: NEEDED PER PROVIDER ORDERS Last Admin: 01/02/19 03:47 Dose: 10 ml Sodium Chloride (Normal Saline Flush 0.9%) 10 ml IVP 0100,0900,1700 [facility] Last Admin: 01/02/19 09:06 Dose: Not Given Thiamine HCl (Vitamin B-1) 100 mg PO DAILY [facility] Lisinopril 40 mg PO DAILY 06/15/17 Objective - Vital Signs/Intake & Output Reviewed Vital Signs: Yes Vital Signs: Vital Signs x48h Temp Pulse Resp BP Pulse Ox 01/02/19 07:56 37 C 99 18 111/70 98 01/02/19 06:54 37.8 C H 99 16 118/65 97 01/02/19 05:00 37.0 C 66 16 114/58 L 100 01/02/19 02:50 36.7 C 101 H 18 121/90 H 99 01/02/19 00:50 37.1 C 107 H 18 110/79 95 Intake & Output: Intake & Output 12/30/18 12/31/18 01/01/19 01/02/19 23:59 23:59 23:59 23:59 Intake Total 2799.41 650 Balance 2799.41 650 - Objective General Appearance: positive: No acute distress, Alert Eyes Bilateral: positive: PERRL, EOMI ENT: positive: Pharynx nml Neck: positive: No JVD. negative: Stiff neck, Carotid bruit Respiratory: positive: Chest non-tender. negative: Wheezes, Rales, Rhonchi Cardiovascular: positive: Regular rate & rhythm, Tachycardia. negative: Gallop/S4, Friction rub Abdomen: positive: Non-tender, No organomegaly, Nml bowel sounds, No distention Skin: positive: Warm, Diaphoresis Extremities: positive: Other (Right forearm swollen in comparison to left. Twice the size of the left. However the hard induration is improved in the skin and muscles are now soft. Right hand continues to be very swollen, bullous lesions over the dorsum of the hand are developing. Can barely flex extend actively. He will not let me passively move his wrist and fingers. Hot, red to touch. No ecchymosis, no petechiae. Capillary refill is 1 seconds over the fingertips.) Neurologic/Psychiatric: positive: Oriented x3, CN's nml (2-12), Motor nml (No tremors, jerking, anxiety.) - Lab Results Fish Bones: 01/02/19 05:37 01/02/19 05:37 Other Labs: Lab Results x24hrs 01/02/19 01/02/19 01/01/19 Range/Units 05:37 05:37 23:50 WBC 15.1 H (4.8-10.8) x10^3/uL RBC 4.21 L (4.70-6.10) 10^6/uL Hgb 11.9 L (14.0-18.0) g/dL Hct 36.8 L (42.0-52.0) % MCV 87.4 (80.0-94.0) fL MCH 28.3 (27.0-31.0) pg MCHC 32.3 (32.0-36.0) g/dL RDW 14.7 (12.0-15.0) % Plt Count 158 (130-450) 10^3/uL MPV 9.7 (7.4-11.4) fL Neut # (Auto) Not Reportable Lymph # (Auto) Not Reportable [place] # (Auto) Not Reportable Eos # (Auto) Not Reportable Baso # (Auto) Not Reportable Absolute Nucleated RBC Not Reportable Total Counted 100 Band Neuts % (Manual) 0 (0 - 10) % Abnorm Lymph % (Manual) 0 % Nucleated RBC % Not Reportable Neutrophils # (Manual) 11.5 H (1.5-6.6) 10^3/uL Lymphocytes # (Manual) 1.2 L (1.5-3.5) 10^3/uL Monocytes # (Manual) 2.3 H (0.0-1.0) 10^3/uL Eosinophils # (Manual) 0.2 (0-0.7) 10^3/uL Basophils # (Manual) 0.0 (0-0.1) 10^3/uL Differential Comment MANUAL DIFFERENTIAL Manual Slide Review WBC Morphology NORMAL APPEARANCE (NORMAL) Platelet Estimate NORMAL (130-450,000) (NORMAL) Platelet Morphology NORMAL APPEARANCE (NORMAL) RBC Morph Micro Appear NORMAL APPEARANCE (NORMAL) ESR (0-20) mm/Hr Sodium 133 L (135-145) mmol/L Potassium 4.0 (3.5-5.0) mmol/L Chloride 99 L (101-111) mmol/L Carbon Dioxide 24 (21-32) mmol/L Anion Gap 10.0 (6-13) BUN 20 (6-20) mg/dL Creatinine 0.7 (0.6-1.2) mg/dL Estimated GFR (MDRD) 119 (>89) Glucose 111 H (70-100) mg/dL Lactic Acid (0.5-2.2) mmol/L Calcium 8.3 L (8.5-10.3) mg/dL Phosphorus 4.5 (2.5-4.6) mg/dL Magnesium 2.2 (1.7-2.8) mg/dL Total Bilirubin (0.2-1.0) mg/dL AST (10-42) IU/L ALT (10-60) IU/L Alkaline Phosphatase (42-121) IU/L Total Creatine Kinase 179 (22-269) IU/L C-Reactive Protein (0-1.0) mg/dL Total Protein (6.7-8.2) g/dL Albumin (3.2-5.5) g/dL Globulin (2.1-4.2) g/dL Albumin/Globulin Ratio (1.0-2.2) Lipase (22-51) U/L Urine Color Urine Clarity (CLEAR) Urine pH (5.0-7.5) PH Ur Specific [place] (1.002-1.030) Urine Protein (NEGATIVE) mg/dL Urine Glucose (UA) (NEGATIVE) mg/dL Urine Ketones (NEGATIVE) mg/dL Urine Occult Blood (NEGATIVE) Urine Nitrite (NEGATIVE) Urine Bilirubin (NEGATIVE) Urine Urobilinogen (NORMAL) E.U./dL Ur Leukocyte Esterase (NEGATIVE) Urine RBC (0-5) /HPF Urine WBC (0-3) /HPF Ur Squamous Epith Cells (<= Few) Urine Bacteria (None Seen) /HPF 01/01/19 01/01/19 01/01/19 Range/Units 23:50 21:05 18:40 WBC (4.8-10.8) x10^3/uL RBC (4.70-6.10) 10^6/uL Hgb (14.0-18.0) g/dL Hct (42.0-52.0) % MCV (80.0-94.0) fL MCH (27.0-31.0) pg MCHC (32.0-36.0) g/dL RDW (12.0-15.0) % Plt Count (130-450) 10^3/uL MPV (7.4-11.4) fL Neut # (Auto) Lymph # (Auto) [place] # (Auto) Eos # (Auto) Baso # (Auto) Absolute Nucleated RBC Total Counted Band Neuts % (Manual) (0 - 10) % Abnorm Lymph % (Manual) % Nucleated RBC % Neutrophils # (Manual) (1.5-6.6) 10^3/uL Lymphocytes # (Manual) (1.5-3.5) 10^3/uL Monocytes # (Manual) (0.0-1.0) 10^3/uL Eosinophils # (Manual) (0-0.7) 10^3/uL Basophils # (Manual) (0-0.1) 10^3/uL Differential Comment Manual Slide Review WBC Morphology (NORMAL) Platelet Estimate (NORMAL) Platelet Morphology (NORMAL) RBC Morph Micro Appear (NORMAL) ESR (0-20) mm/Hr Sodium (135-145) mmol/L Potassium (3.5-5.0) mmol/L Chloride (101-111) mmol/L Carbon Dioxide (21-32) mmol/L Anion Gap (6-13) BUN (6-20) mg/dL Creatinine (0.6-1.2) mg/dL Estimated GFR (MDRD) (>89) Glucose (70-100) mg/dL Lactic Acid 1.0 (0.5-2.2) mmol/L Calcium (8.5-10.3) mg/dL Phosphorus (2.5-4.6) mg/dL Magnesium (1.7-2.8) mg/dL Total Bilirubin (0.2-1.0) mg/dL AST (10-42) IU/L ALT (10-60) IU/L Alkaline Phosphatase (42-121) IU/L Total Creatine Kinase (22-269) IU/L C-Reactive Protein 27.0 H (0-1.0) mg/dL Total Protein (6.7-8.2) g/dL Albumin (3.2-5.5) g/dL Globulin (2.1-4.2) g/dL Albumin/Globulin Ratio (1.0-2.2) Lipase (22-51) U/L Urine Color YELLOW Urine Clarity CLEAR (CLEAR) Urine pH 6.0 (5.0-7.5) PH Ur Specific [place] <=1.005 (1.002-1.030) Urine Protein NEGATIVE (NEGATIVE) mg/dL Urine Glucose (UA) NEGATIVE (NEGATIVE) mg/dL Urine Ketones NEGATIVE (NEGATIVE) mg/dL Urine Occult Blood SMALL H (NEGATIVE) Urine Nitrite NEGATIVE (NEGATIVE) Urine Bilirubin NEGATIVE (NEGATIVE) Urine Urobilinogen 2 H (NORMAL) E.U./dL Ur Leukocyte Esterase NEGATIVE (NEGATIVE) Urine RBC 0-5 (0-5) /HPF Urine WBC 0-3 (0-3) /HPF Ur Squamous Epith Cells FEW Squamous (<= Few) Urine Bacteria Rare (None Seen) /HPF 01/01/19 01/01/19 01/01/19 Range/Units 18:40 18:40 18:40 WBC 13.3 H (4.8-10.8) x10^3/uL RBC 4.15 L (4.70-6.10) 10^6/uL Hgb 11.9 L (14.0-18.0) g/dL Hct 35.6 L (42.0-52.0) % MCV 85.8 (80.0-94.0) fL MCH 28.7 (27.0-31.0) pg MCHC 33.4 (32.0-36.0) g/dL RDW 14.3 (12.0-15.0) % Plt Count 166 (130-450) 10^3/uL MPV 9.7 (7.4-11.4) fL Neut # (Auto) Not Reportable Lymph # (Auto) Not Reportable [place] # (Auto) Not Reportable Eos # (Auto) Not Reportable Baso # (Auto) Not Reportable Absolute Nucleated RBC Not Reportable Total Counted 100 Band Neuts % (Manual) 8 (0 - 10) % Abnorm Lymph % (Manual) 0 % Nucleated RBC % Not Reportable Neutrophils # (Manual) 10.4 H (1.5-6.6) 10^3/uL Lymphocytes # (Manual) 0.9 L (1.5-3.5) 10^3/uL Monocytes # (Manual) 1.9 H (0.0-1.0) 10^3/uL Eosinophils # (Manual) 0.1 (0-0.7) 10^3/uL Basophils # (Manual) 0.0 (0-0.1) 10^3/uL Differential Comment MANUAL DIFFERENTIAL Manual Slide Review Indicated WBC Morphology (NORMAL) Platelet Estimate NORMAL (130-450,000) (NORMAL) Platelet Morphology NORMAL APPEARANCE (NORMAL) RBC Morph Micro Appear NORMAL APPEARANCE (NORMAL) ESR 72 H (0-20) mm/Hr Sodium 132 L (135-145) mmol/L Potassium 3.3 L (3.5-5.0) mmol/L Chloride 97 L (101-111) mmol/L Carbon Dioxide 25 (21-32) mmol/L Anion Gap 10.0 (6-13) BUN 27 H (6-20) mg/dL Creatinine 0.7 (0.6-1.2) mg/dL Estimated GFR (MDRD) 119 (>89) Glucose 107 H (70-100) mg/dL Lactic Acid (0.5-2.2) mmol/L Calcium 8.7 (8.5-10.3) mg/dL Phosphorus (2.5-4.6) mg/dL Magnesium (1.7-2.8) mg/dL Total Bilirubin 1.9 H (0.2-1.0) mg/dL AST 44 H (10-42) IU/L ALT 51 (10-60) IU/L Alkaline Phosphatase 142 H (42-121) IU/L Total Creatine Kinase 213 (22-269) IU/L C-Reactive Protein (0-1.0) mg/dL Total Protein 7.2 (6.7-8.2) g/dL Albumin 3.1 L (3.2-5.5) g/dL Globulin 4.1 (2.1-4.2) g/dL Albumin/Globulin Ratio 0.8 L (1.0-2.2) Lipase 48 (22-51) U/L Urine Color Urine Clarity (CLEAR) Urine pH (5.0-7.5) PH Ur Specific [place] (1.002-1.030) Urine Protein (NEGATIVE) mg/dL Urine Glucose (UA) (NEGATIVE) mg/dL Urine Ketones (NEGATIVE) mg/dL Urine Occult Blood (NEGATIVE) Urine Nitrite (NEGATIVE) Urine Bilirubin (NEGATIVE) Urine Urobilinogen (NORMAL) E.U./dL Ur Leukocyte Esterase (NEGATIVE) Urine RBC (0-5) /HPF Urine WBC (0-3) /HPF Ur Squamous Epith Cells (<= Few) Urine Bacteria (None Seen) /HPF ABX Reporting Has patient been on IV antibiotics over the past 48 hours?: Yes Sepsis Event Note (H) - Evaluation Current Stage of Sepsis: Sepsis Possible source of Sepsis: positive: Skin/soft tissue - Sepsis Criteria Sepsis Criteria: Recorded Heart Rate greater than 90 bpm, WBC count greater than 12,000 or less than 4000 Assessment/Plan - Problem List (1) Sepsis due to cellulitis Impression: This is secondary to his right forearm cellulitis. Presented with leukocytosis with bands along with tachycardia. He is not febrile or hypotensive. This morning the student services vice president and I both re-examined him. His forearm is improved with much less swelling but as we examine the hand, still hot, swollen, can barely passively and actively flex his wrist, fingers and he is starting to have bullae of dorsum of hand near thumb. Still no fever . - Broad spectrum antibiotic coverage with Vancomycin, Unasyn and Clindamycin, this am is going into full 24 hours of Abx so will label Day #1. Pharmacy recommends changing to Zosyn from Unasyn and this was done. - IV hydration including 30ml/kg bolus for sepsis was done last night. - Blood cultures done and pending. (2) Right forearm cellulitis Conclusion/Plan: This is the source of his sepsis. This is nonpurulent cellulitis but there is extensive edema, pain and bullae over the dorsum of the hand are noted. His neurovascularly intact although he does report some numbness in his finger tips. ESR 72 and CRP 27 elevated. Normal CK, AST is only minimally elevated. Given the progression of his edema and pain, will need to evaluate for nec fasc. LRI NEC score is 3 but CRP is pending. Receiving Cefazolin in the ER. Right arm CT compared to duplex and has severe SQ edema without soft tissue gas. Large fluid loculations surrounding the extensor tendons posteriorly at level of carpus. Small IM fluid collecitons within the instrinsic musccles of the hand palm to the 2nd -4th MCP measuring up to 17x5 mm. Additional deep space edema/loculated fluid between the distal radius and ulna [id number] mm. This was discussed with orthopedic surgery last night and Dr. Padron will see the patient this morning. - Expanded abx coverage with Clindamycin, Unasyn and Vancomycin IV given concern for possible nec fasc, Day #1 - Follow CRP daily - Neurovascular checks being done, this am, he is stable. will check again by noon. - Blood cultures done and pending - Trend CK and AST - Followup with Dr. Padron - Add probiotics (3) Hyponatremia Conclusion/Plan: Likely hypovolemic hyponatremia. Sodium 132>133 this am with IV hydration. Continue IVF (4) Hypokalemia Conclusion/Plan: K is 3.3 on admission>4.0 on oral replacement. continue to follow. Will replace orally. (5) Alcohol use Conclusion/Plan: Drinks a 6 pack of beer daily but has decreased his consumption over last few days. Will monitor for alcohol withdrawal. So far BP and pulse stable. Will add vitamins, thiamine.
[2019-01-02] MEDS ORDERED: VANCOMYCIN INJ 1.25 GM in SODIUM CHLORIDE 0.9% 250 ML IV SCH (09:16)
[2019-01-02] MEDS: HEPARIN 5,000 UNIT/ML VIAL SUBQ SCH ×2 (09:18→21:23)
--- NOTE | 2019-01-02 09:33 | PROVIDER PROGRESS NOTE ---
Subjective - Prog Note Date Prog Note Date: 01/02/19 Prog Note Time: 09:30 - Subjective Pt reports feeling: Improved (Right wrist/forearm pain has decreased from 10 to 6-7/10 overnight on IV antibiotics.) Objective - Vital Signs/Intake & Output Vital Signs: Vital Signs x48h Temp Pulse Resp BP Pulse Ox 01/02/19 07:56 37 C 99 18 111/70 98 01/02/19 06:54 37.8 C H 99 16 118/65 97 01/02/19 05:00 37.0 C 66 16 114/58 L 100 01/02/19 02:50 36.7 C 101 H 18 121/90 H 99 Intake & Output: Intake & Output 12/30/18 12/31/18 01/01/19 01/02/19 23:59 23:59 23:59 23:59 Intake Total 2799.41 650 Balance 2799.41 650 - Lab Results Fish Bones: 01/02/19 05:37 01/02/19 05:37 Other Labs: Lab Results x24hrs 01/02/19 01/02/19 01/01/19 Range/Units 05:37 05:37 23:50 WBC 15.1 H (4.8-10.8) x10^3/uL RBC 4.21 L (4.70-6.10) 10^6/uL Hgb 11.9 L (14.0-18.0) g/dL Hct 36.8 L (42.0-52.0) % MCV 87.4 (80.0-94.0) fL MCH 28.3 (27.0-31.0) pg MCHC 32.3 (32.0-36.0) g/dL RDW 14.7 (12.0-15.0) % Plt Count 158 (130-450) 10^3/uL MPV 9.7 (7.4-11.4) fL Neut # (Auto) Not Reportable Lymph # (Auto) Not Reportable [place] # (Auto) Not Reportable Eos # (Auto) Not Reportable Baso # (Auto) Not Reportable Absolute Nucleated RBC Not Reportable Total Counted 100 Band Neuts % (Manual) 0 (0 - 10) % Abnorm Lymph % (Manual) 0 % Nucleated RBC % Not Reportable Neutrophils # (Manual) 11.5 H (1.5-6.6) 10^3/uL Lymphocytes # (Manual) 1.2 L (1.5-3.5) 10^3/uL Monocytes # (Manual) 2.3 H (0.0-1.0) 10^3/uL Eosinophils # (Manual) 0.2 (0-0.7) 10^3/uL Basophils # (Manual) 0.0 (0-0.1) 10^3/uL Differential Comment MANUAL DIFFERENTIAL Manual Slide Review WBC Morphology NORMAL APPEARANCE (NORMAL) Platelet Estimate NORMAL (130-450,000) (NORMAL) Platelet Morphology NORMAL APPEARANCE (NORMAL) RBC Morph Micro Appear NORMAL APPEARANCE (NORMAL) ESR (0-20) mm/Hr Sodium 133 L (135-145) mmol/L Potassium 4.0 (3.5-5.0) mmol/L Chloride 99 L (101-111) mmol/L Carbon Dioxide 24 (21-32) mmol/L Anion Gap 10.0 (6-13) BUN 20 (6-20) mg/dL Creatinine 0.7 (0.6-1.2) mg/dL Estimated GFR (MDRD) 119 (>89) Glucose 111 H (70-100) mg/dL Lactic Acid (0.5-2.2) mmol/L Calcium 8.3 L (8.5-10.3) mg/dL Phosphorus 4.5 (2.5-4.6) mg/dL Magnesium 2.2 (1.7-2.8) mg/dL Total Bilirubin (0.2-1.0) mg/dL AST (10-42) IU/L ALT (10-60) IU/L Alkaline Phosphatase (42-121) IU/L Total Creatine Kinase 179 (22-269) IU/L C-Reactive Protein (0-1.0) mg/dL Total Protein (6.7-8.2) g/dL Albumin (3.2-5.5) g/dL Globulin (2.1-4.2) g/dL Albumin/Globulin Ratio (1.0-2.2) Lipase (22-51) U/L Urine Color Urine Clarity (CLEAR) Urine pH (5.0-7.5) PH Ur Specific [place] (1.002-1.030) Urine Protein (NEGATIVE) mg/dL Urine Glucose (UA) (NEGATIVE) mg/dL Urine Ketones (NEGATIVE) mg/dL Urine Occult Blood (NEGATIVE) Urine Nitrite (NEGATIVE) Urine Bilirubin (NEGATIVE) Urine Urobilinogen (NORMAL) E.U./dL Ur Leukocyte Esterase (NEGATIVE) Urine RBC (0-5) /HPF Urine WBC (0-3) /HPF Ur Squamous Epith Cells (<= Few) Urine Bacteria (None Seen) /HPF 01/01/19 01/01/19 01/01/19 Range/Units 23:50 21:05 18:40 WBC (4.8-10.8) x10^3/uL RBC (4.70-6.10) 10^6/uL Hgb (14.0-18.0) g/dL Hct (42.0-52.0) % MCV (80.0-94.0) fL MCH (27.0-31.0) pg MCHC (32.0-36.0) g/dL RDW (12.0-15.0) % Plt Count (130-450) 10^3/uL MPV (7.4-11.4) fL Neut # (Auto) Lymph # (Auto) [place] # (Auto) Eos # (Auto) Baso # (Auto) Absolute Nucleated RBC Total Counted Band Neuts % (Manual) (0 - 10) % Abnorm Lymph % (Manual) % Nucleated RBC % Neutrophils # (Manual) (1.5-6.6) 10^3/uL Lymphocytes # (Manual) (1.5-3.5) 10^3/uL Monocytes # (Manual) (0.0-1.0) 10^3/uL Eosinophils # (Manual) (0-0.7) 10^3/uL Basophils # (Manual) (0-0.1) 10^3/uL Differential Comment Manual Slide Review WBC Morphology (NORMAL) Platelet Estimate (NORMAL) Platelet Morphology (NORMAL) RBC Morph Micro Appear (NORMAL) ESR (0-20) mm/Hr Sodium (135-145) mmol/L Potassium (3.5-5.0) mmol/L Chloride (101-111) mmol/L Carbon Dioxide (21-32) mmol/L Anion Gap (6-13) BUN (6-20) mg/dL Creatinine (0.6-1.2) mg/dL Estimated GFR (MDRD) (>89) Glucose (70-100) mg/dL Lactic Acid 1.0 (0.5-2.2) mmol/L Calcium (8.5-10.3) mg/dL Phosphorus (2.5-4.6) mg/dL Magnesium (1.7-2.8) mg/dL Total Bilirubin (0.2-1.0) mg/dL AST (10-42) IU/L ALT (10-60) IU/L Alkaline Phosphatase (42-121) IU/L Total Creatine Kinase (22-269) IU/L C-Reactive Protein 27.0 H (0-1.0) mg/dL Total Protein (6.7-8.2) g/dL Albumin (3.2-5.5) g/dL Globulin (2.1-4.2) g/dL Albumin/Globulin Ratio (1.0-2.2) Lipase (22-51) U/L Urine Color YELLOW Urine Clarity CLEAR (CLEAR) Urine pH 6.0 (5.0-7.5) PH Ur Specific [place] <=1.005 (1.002-1.030) Urine Protein NEGATIVE (NEGATIVE) mg/dL Urine Glucose (UA) NEGATIVE (NEGATIVE) mg/dL Urine Ketones NEGATIVE (NEGATIVE) mg/dL Urine Occult Blood SMALL H (NEGATIVE) Urine Nitrite NEGATIVE (NEGATIVE) Urine Bilirubin NEGATIVE (NEGATIVE) Urine Urobilinogen 2 H (NORMAL) E.U./dL Ur Leukocyte Esterase NEGATIVE (NEGATIVE) Urine RBC 0-5 (0-5) /HPF Urine WBC 0-3 (0-3) /HPF Ur Squamous Epith Cells FEW Squamous (<= Few) Urine Bacteria Rare (None Seen) /HPF 01/01/19 01/01/19 01/01/19 Range/Units 18:40 18:40 18:40 WBC 13.3 H (4.8-10.8) x10^3/uL RBC 4.15 L (4.70-6.10) 10^6/uL Hgb 11.9 L (14.0-18.0) g/dL Hct 35.6 L (42.0-52.0) % MCV 85.8 (80.0-94.0) fL MCH 28.7 (27.0-31.0) pg MCHC 33.4 (32.0-36.0) g/dL RDW 14.3 (12.0-15.0) % Plt Count 166 (130-450) 10^3/uL MPV 9.7 (7.4-11.4) fL Neut # (Auto) Not Reportable Lymph # (Auto) Not Reportable [place] # (Auto) Not Reportable Eos # (Auto) Not Reportable Baso # (Auto) Not Reportable Absolute Nucleated RBC Not Reportable Total Counted 100 Band Neuts % (Manual) 8 (0 - 10) % Abnorm Lymph % (Manual) 0 % Nucleated RBC % Not Reportable Neutrophils # (Manual) 10.4 H (1.5-6.6) 10^3/uL Lymphocytes # (Manual) 0.9 L (1.5-3.5) 10^3/uL Monocytes # (Manual) 1.9 H (0.0-1.0) 10^3/uL Eosinophils # (Manual) 0.1 (0-0.7) 10^3/uL Basophils # (Manual) 0.0 (0-0.1) 10^3/uL Differential Comment MANUAL DIFFERENTIAL Manual Slide Review Indicated WBC Morphology (NORMAL) Platelet Estimate NORMAL (130-450,000) (NORMAL) Platelet Morphology NORMAL APPEARANCE (NORMAL) RBC Morph Micro Appear NORMAL APPEARANCE (NORMAL) ESR 72 H (0-20) mm/Hr Sodium 132 L (135-145) mmol/L Potassium 3.3 L (3.5-5.0) mmol/L Chloride 97 L (101-111) mmol/L Carbon Dioxide 25 (21-32) mmol/L Anion Gap 10.0 (6-13) BUN 27 H (6-20) mg/dL Creatinine 0.7 (0.6-1.2) mg/dL Estimated GFR (MDRD) 119 (>89) Glucose 107 H (70-100) mg/dL Lactic Acid (0.5-2.2) mmol/L Calcium 8.7 (8.5-10.3) mg/dL Phosphorus (2.5-4.6) mg/dL Magnesium (1.7-2.8) mg/dL Total Bilirubin 1.9 H (0.2-1.0) mg/dL AST 44 H (10-42) IU/L ALT 51 (10-60) IU/L Alkaline Phosphatase 142 H (42-121) IU/L Total Creatine Kinase 213 (22-269) IU/L C-Reactive Protein (0-1.0) mg/dL Total Protein 7.2 (6.7-8.2) g/dL Albumin 3.1 L (3.2-5.5) g/dL Globulin 4.1 (2.1-4.2) g/dL Albumin/Globulin Ratio 0.8 L (1.0-2.2) Lipase 48 (22-51) U/L Urine Color Urine Clarity (CLEAR) Urine pH (5.0-7.5) PH Ur Specific [place] (1.002-1.030) Urine Protein (NEGATIVE) mg/dL Urine Glucose (UA) (NEGATIVE) mg/dL Urine Ketones (NEGATIVE) mg/dL Urine Occult Blood (NEGATIVE) Urine Nitrite (NEGATIVE) Urine Bilirubin (NEGATIVE) Urine Urobilinogen (NORMAL) E.U./dL Ur Leukocyte Esterase (NEGATIVE) Urine RBC (0-5) /HPF Urine WBC (0-3) /HPF Ur Squamous Epith Cells (<= Few) Urine Bacteria (None Seen) /HPF - Diagnostic Imaging Diagnostic Imaging Comments: CT scan showed extensive soft tissue edema consistent moderately severe cellulitis - Other Results/Comments Other Results/Comments: EXAM: Marked edema and redness of right wrist/hand /distal forearm, especially the extensor compartment. Limited AROM and PROM right wrist and hand. Sensation: mild decrease in palmar tips of thumb, index and middle fingers. %/% AbPBr. -Tinnel's sx. Tenderness over just distal and proximal to ulnar styloid. No flocculence palpable. No lymphangitis Sepsis Event Note (H) - Evaluation Current Stage of Sepsis: Sepsis Possible source of Sepsis: positive: Skin/soft tissue - Sepsis Criteria Sepsis Criteria: Recorded Heart Rate greater than 90 bpm, WBC count greater than 12,000 or less than 4000 Assessment/Plan - Problem List (1) Right forearm cellulitis Impression: clinically improved by hx after 12 hours of IV antibiotics PLAN: Continue wrist elevation, local heat, IV antibiotics, serial exams.
[2019-01-02] MEDS: VANCOMYCIN INJ 1.25 GM in SODIUM CHLORIDE 0.9% 250 ML IV SCH ×2 (10:01→22:48)
[2019-01-02] MEDS ORDERED: PIPERACILLIN/TAZOBACTAM 4.5 GM in SODIUM CHLORIDE 0.9% MINIBAG 100 ML IV SCH (11:00)
[2019-01-02] MEDS: LACTATED RINGERS 1,000 ML IV SCH ×2 (11:04→20:59)
[2019-01-02] MEDS: THIAMINE 100 MG TABLET PO SCH (12:15)
[2019-01-02] MEDS: PRENATAL VITAMIN TABLET PO SCH (12:15)
--- NOTE | 2019-01-02 12:21 | CONSULTATION NOTE ---
DATE OF SERVICE: 01/02/2019 Physician: Pepe Padron MD REFERRING PHYSICIAN: Dr. 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 The patient began noticing some problems with his right upper extremity Sunday after working several days at his mother's house using an impact nailing tool. He denied any actual penetrating trauma to his upper extremity. He did note some swelling and pain which prompted his evaluation in the emergency room on Sunday. Because of a history of prior gout, it was thought that he had an inflammatory reaction in his upper extremity from gout and his repetitive trauma from his impact nailer. He was started on indomethacin medication. Over the next 3-4 days, he did not note much in the way of improvement of his symptoms. In fact, he began noticing increasing swelling and redness to his wrist and forearm. He was unable to continue working. On the day of his admission, he noted a low-grade fever. The patient was seen in the emergency room last evening with marked swelling and redness to his forearm and wrist area. He also had a low-grade temperature. His workup included a CT scan of his upper extremity, which showed evidence of rather extensive soft tissue edema around his wrist and forearm consistent with cellulitis. There was a possibility of a collection of fluid over the dorsal portion of his wrist as well. The patient was subsequently admitted and started on IV antibiotics. PHYSICAL EXAMINATION: The patient was afebrile on the morning of his examination. The patient was up and ambulatory, walking about the floor in minimal discomfort. Examination of his right forearm and wrist showed rather marked swelling involving his hand, wrist, and distal half of his forearm primarily on the extensor surfaces. The patient had no areas of fluctuance on palpation around his forearm or wrist either on the palmar or dorsal aspect. Maximal tenderness be around the ulnar styloid on the extensor side both distal and proximal to this area. He had some limited range of motion secondary to swelling of the wrist and hand, both actively and passively. Sensation showed some mild diminished sensation in the tips of his thumb, index, and middle fingers. He had no thenar muscle atrophy, however. He had 5/5 abductor pollicis brevis muscle strength. There is no lymphangitis into the arm proximally. Subjectively, the patient stated his forearm pain was 10/10 on admission last evening. Currently, is now 6-7/10 since his admission and on IV antibiotics for around 10-12 hours. ADMISSION LABORATORY: Included a white count of 13,300 with a left shift. Sedimentation rate of 72. C-reactive protein of 27. ASSESSMENT: Moderately severe right dominant forearm and wrist cellulitis - at this point it does not appear as if there is any abscess pocket that needs to be drained. The patient is clinically improved remarkably after some elevation and IV antibiotics overnight. PLAN: The patient may begin a diet based on his improvement clinically. Have him continue to elevate his right upper extremity with pillows when he is lying down. He will apply local heat to the wrist and forearm as well. Continue with his IV antibiotics. We will continue with serial examinations to make sure he continues to improve over the next day or two. TD: 01/02/2019 09:56 REVISED 01/06/19jll DOS = 01/02/19 Orig. signed 01/02/19@1916 MTDD
[2019-01-02] MEDS ORDERED: PIPERACILLIN/TAZOBACTAM 4.5 GM in SODIUM CHLORIDE 0.9% MINIBAG 100 ML IV ONE (14:00)
[2019-01-02] MEDS: ACETAMINOPHEN 325 MG TABLET PO PRN (16:52)
[2019-01-02] MEDS: SACCHAROMYCES BOULARDII 250 MG CAPSULE PO SCH (17:30)
[2019-01-02] MEDS: PIPERACILLIN/TAZOBACTAM 3.375 GM in SODIUM CHLORIDE 0.9% MINIBAG 100 ML IV SCH (17:30)
[2019-01-03] MEDS: SODIUM CHLORIDE FLUSH 0.9% 10 ML SYRINGE IVP SCH ×3 (00:26→17:51)
[2019-01-03] MEDS: PIPERACILLIN/TAZOBACTAM 3.375 GM in SODIUM CHLORIDE 0.9% MINIBAG 100 ML IV SCH ×3 (00:27→17:30)
[2019-01-03] MEDS: KETOROLAC 30 MG/ML VIAL IVP PRN ×2 (05:55→17:31)
[2019-01-03] MEDS: HYDROmorphone 1 MG/ML CARPUJECT IVP PRN ×6 (05:55→21:26)
[2019-01-03] MEDS: CLINDAMYCIN 600 MG/50 ML 50 ML IV SCH ×3 (05:56→21:35)
[2019-01-03 06:07] LABS: BASOPHILS # (AUTO) 0.1 10^3/uL (0.0-0.1); BASOPHILS % (AUTO) 0.6 %; EOSINOPHILS # (AUTO) 0.2 10^3/uL (0.0-0.7); HGB - HEMOGLOBIN 11.4 g/dL (14.0-18.0); LYMPHOCYTES # (AUTO) 0.9 10^3/uL (1.5-3.5); LYMPHOCYTES % (AUTO) 11.2 %; MEAN CORPUSCULAR HEMOGLOBIN 28.6 pg (27.0-31.0); MEAN CORPUSCULAR HGB CONC 32.1 g/dL (32.0-36.0); MEAN CORPUSCULAR VOLUME 89.2 fL (80.0-94.0); MEAN PLATELET VOLUME 10.4 fL (7.4-11.4); MONOCYTES # (AUTO) 1.2 10^3/uL (0.0-1.0); MONOCYTES % (AUTO) 14.5 %; NEUTROPHILS # (AUTO) 5.5 10^3/uL (1.5-6.6); NEUTROPHILS % (AUTO) 69.3 %; PLT - PLATELET COUNT 144 10^3/uL (130-450); RED BLOOD COUNT 3.98 10^6/uL (4.70-6.10)
[2019-01-03 06:08] LABS: MUDS CUTOFF CONCENTRATIONS CUTOFF CONC BELOW:
[2019-01-03 06:21] LABS: AMPHETAMINE SCREEN,URINE POSITIVE (NEGATIVE); BENZODIAZEPINES SCREEN, URINE NEGATIVE (NEGATIVE); COCAINE SCREEN URINE NEGATIVE (NEGATIVE); METHADONE SCREEN, URINE NEGATIVE (NEGATIVE); METHAMPHETAMINES SCREEN, URINE NEGATIVE (NEGATIVE); OPIATE SCREEN, URINE POSITIVE (NEGATIVE); OXYCODONE SCREEN, URINE NEGATIVE (NEGATIVE); PROPOXYPHENE SCREEN, URINE NEGATIVE (NEGATIVE); TRICYCLIC ANTIDEPRESSANT,URINE NEGATIVE (NEGATIVE)
[2019-01-03 06:22] LABS: CALCIUM 8.2 mg/dL (8.5-10.3); CREATININE 0.7 mg/dL (0.6-1.2); MAGNESIUM 2.4 mg/dL (1.7-2.8)
[2019-01-03] MEDS: ACETAMINOPHEN 325 MG TABLET PO PRN (10:08)
[2019-01-03 10:10] LABS: VANCOMYCIN,TROUGH 8.3 ug/mL (10.0-20.0)
[2019-01-03] MEDS: SACCHAROMYCES BOULARDII 250 MG CAPSULE PO SCH ×2 (10:10→17:30)
[2019-01-03] MEDS: PRENATAL VITAMIN TABLET PO SCH (10:10)
[2019-01-03] MEDS: LACTATED RINGERS 1,000 ML IV SCH ×2 (10:10→14:41)
[2019-01-03] MEDS: NICOTINE 14 MG PATCH TOP SCH (10:17)
--- NOTE | 2019-01-03 10:28 | PROVIDER PROGRESS NOTE ---
Subjective - Prog Note Date Prog Note Date: 01/03/19 Prog Note Time: 10:27 - Subjective Pt reports feeling: No change Subjective: he just woke up so is groggy. But hand about the same. Forearm continues to improve. no fever. WBC is normal Current Medications - Current Medications Current Medications: Active Medications Acetaminophen (Tylenol) 650 mg PO Q4HR PRN PRN Reason: Pain 1 to 4 Last Admin: 01/03/19 10:08 Dose: 650 mg Heparin Sodium (Porcine) () 5,000 unit SUBQ BID [facility] Last Admin: 01/02/19 21:23 Dose: 5,000 unit Hydromorphone HCl (Dilaudid Inj Carp) 2 mg IVP Q2HR PRN PRN Reason: Pain 8 to 10 Last Admin: 01/03/19 10:08 Dose: 2 mg Lactated Ringer's (Lr) 1,000 mls @ 100 mls/hr IV .Q10H [facility] Last Admin: 01/03/19 10:10 Dose: 100 mls/hr Clindamycin Phosphate (Cleocin 600 Mg/50 Ml) 50 mls @ 100 mls/hr IV Q8HR [facility] Last Admin: 01/03/19 05:56 Dose: 100 mls/hr Vancomycin HCl 1.25 gm/ Sodium (Chloride) 250 mls @ 250 mls/hr IV Q12H [facility] Last Infusion: 01/03/19 00:29 Dose: Infused Piperacillin Sod/Tazobactam (Sod 3.375 gm/ Sodium Chloride) 100 mls @ 25 mls/hr IV Q8H [facility] Last Admin: 01/03/19 10:10 Dose: 25 mls/hr Ketorolac Tromethamine (Toradol Inj (30mg)) 30 mg IVP Q6HR PRN PRN Reason: PAIN Stop: 01/06/19 22:48 Last Admin: 01/03/19 05:55 Dose: 30 mg Nicotine (Nicoderm) 1 patch TOP DAILY [facility] Last Admin: 01/03/19 10:17 Dose: Not Given Ondansetron HCl (Zofran Inj) 4 mg IVP Q6HR PRN PRN Reason: Nausea / Vomiting Multivit/Folic Acid/Iron (Trinatal Rx 1) 1 tab PO DAILYWM [facility] Last Admin: 01/03/19 10:10 Dose: 1 tab Saccharomyces Boulardii (Florastor) 250 mg PO BIDWM [facility] Last Admin: 01/03/19 10:10 Dose: 250 mg Sodium Chloride (Normal Saline Flush 0.9%) 10 ml IVP PRN PRN PRN Reason: NEEDED PER PROVIDER ORDERS Last Admin: 01/02/19 12:21 Dose: 10 ml Sodium Chloride (Normal Saline Flush 0.9%) 10 ml IVP 0100,0900,1700 [facility] Last Admin: 01/03/19 10:09 Dose: 10 ml Thiamine HCl (Vitamin B-1) 100 mg PO DAILY [facility] Last Admin: 01/02/19 12:15 Dose: 100 mg Lisinopril 40 mg PO DAILY 06/15/17 Objective - Vital Signs/Intake & Output Reviewed Vital Signs: Yes Vital Signs: Vital Signs x48h Temp Pulse Resp BP Pulse Ox 01/03/19 09:00 36.8 C 88 18 122/76 98 01/03/19 07:00 37.2 C 92 20 125/65 93 01/03/19 03:50 80 18 131/76 H 96 Intake & Output: Intake & Output 12/31/18 01/01/19 01/02/19 01/03/19 23:59 23:59 23:59 23:59 Intake Total 2799.41 4491.667 1350 Output Total 200 Balance 2799.41 4491.667 1150 - Objective General Appearance: positive: No acute distress, Mild distress (from pain in hand), Other (eating 100% of food, walking all the way to gift shop, significant other with him 23/10) Eyes Bilateral: positive: PERRL, EOMI Neck: positive: No JVD. negative: Carotid bruit Respiratory: positive: Chest non-tender. negative: Wheezes, Rales, Rhonchi Cardiovascular: positive: Regular rate & rhythm. negative: Systolic murmur, Gallop/S4, Friction rub Abdomen: positive: Non-tender, No organomegaly, Nml bowel sounds, No distention Skin: positive: Warm, Dry Extremities: positive: Other (the right hand is still tensely swollen, tender, can barely actively flex fingers or wrist. Hot to touch. Bullous vessicles are large and more in number on dorsum of hand. Forearm if red and hot and indurated soft tissue to 1/3 [address] up forearm from wrist. Once beyond that, still with some redness but induration gone. Skin and muscles of upper 2/3 forearm soft.) Neurologic/Psychiatric: positive: Oriented x3, CN's nml (2-12), Motor nml - Lab Results Fish Bones: 01/03/19 05:36 01/03/19 05:36 Other Labs: Lab Results x24hrs 01/03/19 01/03/19 01/03/19 Range/Units 09:50 05:36 05:36 WBC 8.0 (4.8-10.8) x10^3/uL RBC 3.98 L (4.70-6.10) 10^6/uL Hgb 11.4 L (14.0-18.0) g/dL Hct 35.5 L (42.0-52.0) % MCV 89.2 (80.0-94.0) fL MCH 28.6 (27.0-31.0) pg MCHC 32.1 (32.0-36.0) g/dL RDW 15.0 (12.0-15.0) % Plt Count 144 (130-450) 10^3/uL MPV 10.4 (7.4-11.4) fL Neut # (Auto) 5.5 (1.5-6.6) 10^3/uL Lymph # (Auto) 0.9 L (1.5-3.5) 10^3/uL [place] # (Auto) 1.2 H (0.0-1.0) 10^3/uL Eos # (Auto) 0.2 (0.0-0.7) 10^3/uL Baso # (Auto) 0.1 (0.0-0.1) 10^3/uL Absolute Nucleated RBC 0.00 x10^3/uL Nucleated RBC % 0.0 /100WBC Sodium 136 (135-145) mmol/L Potassium 4.2 (3.5-5.0) mmol/L Chloride 103 (101-111) mmol/L Carbon Dioxide 22 (21-32) mmol/L Anion Gap 11.0 (6-13) BUN 14 (6-20) mg/dL Creatinine 0.7 (0.6-1.2) mg/dL Estimated GFR (MDRD) 119 (>89) Glucose 124 H (70-100) mg/dL Calcium 8.2 L (8.5-10.3) mg/dL Phosphorus 4.0 (2.5-4.6) mg/dL Magnesium 2.4 (1.7-2.8) mg/dL Last Dose Date 01/03/19 Last Dose Time 0029 Vancomycin Trough 8.3 L (10.0-20.0) ug/mL Urine Opiates Screen (NEGATIVE) Ur Oxycodone Screen (NEGATIVE) Urine Methadone Screen (NEGATIVE) Ur Propoxyphene Screen (NEGATIVE) Ur Barbiturates Screen (NEGATIVE) Ur Tricyclics Screen (NEGATIVE) Ur Phencyclidine Scrn (NEGATIVE) Ur Amphetamine Screen (NEGATIVE) U Methamphetamines Scrn (NEGATIVE) U Benzodiazepines Scrn (NEGATIVE) Urine Cocaine Screen (NEGATIVE) U Cannabinoids Screen (NEGATIVE) 01/03/19 Range/Units 04:42 WBC (4.8-10.8) x10^3/uL RBC (4.70-6.10) 10^6/uL Hgb (14.0-18.0) g/dL Hct (42.0-52.0) % MCV (80.0-94.0) fL MCH (27.0-31.0) pg MCHC (32.0-36.0) g/dL RDW (12.0-15.0) % Plt Count (130-450) 10^3/uL MPV (7.4-11.4) fL Neut # (Auto) (1.5-6.6) 10^3/uL Lymph # (Auto) (1.5-3.5) 10^3/uL [place] # (Auto) (0.0-1.0) 10^3/uL Eos # (Auto) (0.0-0.7) 10^3/uL Baso # (Auto) (0.0-0.1) 10^3/uL Absolute Nucleated RBC x10^3/uL Nucleated RBC % /100WBC Sodium (135-145) mmol/L Potassium (3.5-5.0) mmol/L Chloride (101-111) mmol/L Carbon Dioxide (21-32) mmol/L Anion Gap (6-13) BUN (6-20) mg/dL Creatinine (0.6-1.2) mg/dL Estimated GFR (MDRD) (>89) Glucose (70-100) mg/dL Calcium (8.5-10.3) mg/dL Phosphorus (2.5-4.6) mg/dL Magnesium (1.7-2.8) mg/dL Last Dose Date Last Dose Time Vancomycin Trough (10.0-20.0) ug/mL Urine Opiates Screen POSITIVE H (NEGATIVE) Ur Oxycodone Screen NEGATIVE (NEGATIVE) Urine Methadone Screen NEGATIVE (NEGATIVE) Ur Propoxyphene Screen NEGATIVE (NEGATIVE) Ur Barbiturates Screen NEGATIVE (NEGATIVE) Ur Tricyclics Screen NEGATIVE (NEGATIVE) Ur Phencyclidine Scrn NEGATIVE (NEGATIVE) Ur Amphetamine Screen POSITIVE H (NEGATIVE) U Methamphetamines Scrn NEGATIVE (NEGATIVE) U Benzodiazepines Scrn NEGATIVE (NEGATIVE) Urine Cocaine Screen NEGATIVE (NEGATIVE) U Cannabinoids Screen NEGATIVE (NEGATIVE) ABX Reporting Has patient been on IV antibiotics over the past 48 hours?: Yes Sepsis Event Note (H) - Evaluation Current Stage of Sepsis: Sepsis Possible source of Sepsis: positive: Skin/soft tissue - Sepsis Criteria Sepsis Criteria: Recorded Heart Rate greater than 90 bpm, WBC count greater than 12,000 or less than 4000 Assessment/Plan - Problem List (1) Sepsis due to cellulitis Impression: Resolved. This is secondary to his right forearm cellulitis. Presented with leukocytosis with bands along with tachycardia. He is not febrile or hypotensive. on his first morning, the dental cream maker and I both re-examined him. His forearm was improved with much less swelling but as we examined the hand, still hot, sw ollen, can barely passively and actively flex his wrist, fingers and he is starting to have bullae of dorsum of hand near thumb. Still no fever . Today is Day #2 and the hand is the same with tight edema, bulla of the skin. No improvement. - Broad spectrum antibiotic coverage with Vancomycin, Zosyn and Clindamycin (was on Unasyn but changed Day #1), this am is going into full 48 hours of Abx so will label Day #2. Pharmacy recommends changing to Zosyn from Unasyn and this was done. - IV hydration including 30ml/kg bolus for sepsis was done on admission - Blood cultures negative after one day (2) Right forearm cellulitis Conclusion/Plan: This is the source of his sepsis. This is nonpurulent cellulitis but there is extensive edema, pain and bullae over the dorsum of the hand are noted. His neurovascularly intact although he does report some numbness in his finger tips. ESR 72 and CRP 27 elevated. Normal CK, AST is only minimally elevated. Given the progression of his edema and pain, will need to evaluate for nec fasc. LRINEC score is 3 but CRP is pending. Receiving Cefazolin in the ER. Right arm CT compared to duplex and has severe SQ edema without soft tissue gas. Large fluid loculations surrounding the extensor tendons posteriorly at level of carpus. Small IM fluid collecitons within the instrinsic musccles of the hand palm to the 2nd -4th MCP measuring up to 17x5 mm. Additional deep space edema/loculated fluid between the distal radius and ulna [id number] mm. This was discussed with orthopedic surgery on admit and Dr. Padron saw the patient. Today, since he is not better overnight, will go to the OR but check an US first. - Expanded abx coverage with Clindamycin, Zosyn and Vancomycin IV given concern for possible nec fasc, Day #2 - Follow CRP daily - Neurovascular checks being done, and I saw him 3 times yesterday with no change in exam from the morning and over the course of the day - Blood cultures negative - Trend CK and AST - order US - NPO - Followup with Dr. Padron again today and to go to the OR (3) Hyponatremia Conclusion/Plan: Likely hypovolemic hyponatremia. Sodium 132>133>136 this am with IV hydration. Continue IVF (4) Hypokalemia Conclusion/Plan: K is 3.3 on admission>4.0 on oral replacement. continue to follow. Will replace orally. (5) Alcohol use Conclusion/Plan: Drinks a 6 pack of beer daily but has decreased his consumption over last few days. Will monitor for alcohol withdrawal. So far BP and pulse stable. Will add vitamins, thiamine. (6) tobacco abuse Nicotine patch requested by patient and ordered. (7) Amphetamine abuse Drug screen positive. Will sit down with patient and explore if any other meds could have done this.
[2019-01-03] MEDS: THIAMINE 100 MG TABLET PO SCH (10:29)
[2019-01-03] MEDS: HEPARIN 5,000 UNIT/ML VIAL SUBQ SCH ×2 (10:29→20:46)
[2019-01-03] MEDS: VANCOMYCIN INJ 1.25 GM in SODIUM CHLORIDE 0.9% 250 ML IV SCH (10:47)
[2019-01-03] MEDS: SODIUM CHLORIDE FLUSH 0.9% 10 ML SYRINGE IVP PRN ×3 (10:48→14:22)
--- NOTE | 2019-01-03 11:31 | PROVIDER PROGRESS NOTE ---
Subjective - Prog Note Date Prog Note Date: 01/03/19 Prog Note Time: 11:28 - Subjective Pt reports feeling: No change (Still left wrist pain) Objective - Vital Signs/Intake & Output Vital Signs: Vital Signs x48h Temp Pulse Resp BP Pulse Ox 01/03/19 09:00 36.8 C 88 18 122/76 98 01/03/19 07:00 37.2 C 92 20 125/65 93 01/03/19 03:50 80 18 131/76 H 96 Intake & Output: Intake & Output 12/31/18 01/01/19 01/02/19 01/03/19 23:59 23:59 23:59 23:59 Intake Total 2799.41 4491.667 1590 Output Total 200 Balance 2799.41 4491.667 1390 - Lab Results Fish Bones: 01/03/19 05:36 01/03/19 05:36 Other Labs: Lab Results x24hrs 01/03/19 01/03/19 01/03/19 Range/Units 09:50 05:36 05:36 WBC 8.0 (4.8-10.8) x10^3/uL RBC 3.98 L (4.70-6.10) 10^6/uL Hgb 11.4 L (14.0-18.0) g/dL Hct 35.5 L (42.0-52.0) % MCV 89.2 (80.0-94.0) fL MCH 28.6 (27.0-31.0) pg MCHC 32.1 (32.0-36.0) g/dL RDW 15.0 (12.0-15.0) % Plt Count 144 (130-450) 10^3/uL MPV 10.4 (7.4-11.4) fL Neut # (Auto) 5.5 (1.5-6.6) 10^3/uL Lymph # (Auto) 0.9 L (1.5-3.5) 10^3/uL [place] # (Auto) 1.2 H (0.0-1.0) 10^3/uL Eos # (Auto) 0.2 (0.0-0.7) 10^3/uL Baso # (Auto) 0.1 (0.0-0.1) 10^3/uL Absolute Nucleated RBC 0.00 x10^3/uL Nucleated RBC % 0.0 /100WBC Sodium 136 (135-145) mmol/L Potassium 4.2 (3.5-5.0) mmol/L Chloride 103 (101-111) mmol/L Carbon Dioxide 22 (21-32) mmol/L Anion Gap 11.0 (6-13) BUN 14 (6-20) mg/dL Creatinine 0.7 (0.6-1.2) mg/dL Estimated GFR (MDRD) 119 (>89) Glucose 124 H (70-100) mg/dL Calcium 8.2 L (8.5-10.3) mg/dL Phosphorus 4.0 (2.5-4.6) mg/dL Magnesium 2.4 (1.7-2.8) mg/dL Last Dose Date 01/03/19 Last Dose Time 0029 Vancomycin Trough 8.3 L (10.0-20.0) ug/mL Urine Opiates Screen (NEGATIVE) Ur Oxycodone Screen (NEGATIVE) Urine Methadone Screen (NEGATIVE) Ur Propoxyphene Screen (NEGATIVE) Ur Barbiturates Screen (NEGATIVE) Ur Tricyclics Screen (NEGATIVE) Ur Phencyclidine Scrn (NEGATIVE) Ur Amphetamine Screen (NEGATIVE) U Methamphetamines Scrn (NEGATIVE) U Benzodiazepines Scrn (NEGATIVE) Urine Cocaine Screen (NEGATIVE) U Cannabinoids Screen (NEGATIVE) 01/03/19 Range/Units 04:42 WBC (4.8-10.8) x10^3/uL RBC (4.70-6.10) 10^6/uL Hgb (14.0-18.0) g/dL Hct (42.0-52.0) % MCV (80.0-94.0) fL MCH (27.0-31.0) pg MCHC (32.0-36.0) g/dL RDW (12.0-15.0) % Plt Count (130-450) 10^3/uL MPV (7.4-11.4) fL Neut # (Auto) (1.5-6.6) 10^3/uL Lymph # (Auto) (1.5-3.5) 10^3/uL [place] # (Auto) (0.0-1.0) 10^3/uL Eos # (Auto) (0.0-0.7) 10^3/uL Baso # (Auto) (0.0-0.1) 10^3/uL Absolute Nucleated RBC x10^3/uL Nucleated RBC % /100WBC Sodium (135-145) mmol/L Potassium (3.5-5.0) mmol/L Chloride (101-111) mmol/L Carbon Dioxide (21-32) mmol/L Anion Gap (6-13) BUN (6-20) mg/dL Creatinine (0.6-1.2) mg/dL Estimated GFR (MDRD) (>89) Glucose (70-100) mg/dL Calcium (8.5-10.3) mg/dL Phosphorus (2.5-4.6) mg/dL Magnesium (1.7-2.8) mg/dL Last Dose Date Last Dose Time Vancomycin Trough (10.0-20.0) ug/mL Urine Opiates Screen POSITIVE H (NEGATIVE) Ur Oxycodone Screen NEGATIVE (NEGATIVE) Urine Methadone Screen NEGATIVE (NEGATIVE) Ur Propoxyphene Screen NEGATIVE (NEGATIVE) Ur Barbiturates Screen NEGATIVE (NEGATIVE) Ur Tricyclics Screen NEGATIVE (NEGATIVE) Ur Phencyclidine Scrn NEGATIVE (NEGATIVE) Ur Amphetamine Screen POSITIVE H (NEGATIVE) U Methamphetamines Scrn NEGATIVE (NEGATIVE) U Benzodiazepines Scrn NEGATIVE (NEGATIVE) Urine Cocaine Screen NEGATIVE (NEGATIVE) U Cannabinoids Screen NEGATIVE (NEGATIVE) - Other Results/Comments Other Results/Comments: EXAM: About the same. Left wrist/hand and distal forearm still red and 2+ swollen. Limited wrist and finger motion due to swollen wrist and hand. Maximal tenderness about ulnar styloid over extensor compartment. No flocculence. Sepsis Event Note (H) - Evaluation Current Stage of Sepsis: Sepsis Possible source of Sepsis: positive: Skin/soft tissue - Sepsis Criteria Sepsis Criteria: Recorded Heart Rate greater than 90 bpm, WBC count greater than 12,000 or less than 4000 Assessment/Plan - Problem List (1) Right forearm cellulitis Impression: After initial improvement on 12 hour of IV antibiotics, his condition has not im proved over the past 12-24 hours. Will US left wrist/forearm to see if fluid collection/abscess has developed. Plan exploration of hand/wrist/forearm in OR this afternoon. Risks and benefit of surgery explained to patient. Questions answered. Forearm marked. Consent signed.
--- NOTE | 2019-01-03 11:56 | ANESTHESIA ---
Pre-Anesthesia VS, & Labs - Diagnosis R hand infectious process/cellulitis - Procedure I&D R hand/forearm Vital Signs: Temp Pulse Resp BP Pulse Ox 36.8 C 88 18 122/76 98 01/03/19 09:00 01/03/19 09:00 01/03/19 09:00 01/03/19 09:00 01/03/19 09:00 Height 5 ft 10 in Weight (kg) 81.6 kg Body Mass Index 25.8 - NPO Last Fluid Intake: sips coffee @0900 - Lab Results Current Lab Results: Laboratory Tests 01/03/19 09:50: Last Dose Date 01/03/19, Last Dose Time 0029, Vancomycin Trough 8.3 L 01/03/19 05:36: Sodium 136, Potassium 4.2, Chloride 103, Carbon Dioxide 22, Anion Gap 11.0, BUN 14, Creatinine 0.7, Estimated GFR (MDRD) 119, Glucose 124 H, Calcium 8.2 L, Phosphorus 4.0, Magnesium 2.4 01/03/19 05:36: WBC 8.0, RBC 3.98 L, Hgb 11.4 L, Hct 35.5 L, MCV 89.2, MCH 28.6, MCHC 32.1, RDW 15.0, Plt Count 144, MPV 10.4, Neut # (Auto) 5.5, Lymph # (Auto) 0.9 L, [place] # (Auto) 1.2 H, Eos # (Auto) 0.2, Baso # (Auto) 0.1, Absolute Nucleated RBC 0.00, Nucleated RBC % 0.0 01/03/19 04:42: Urine Opiates Screen POSITIVE H, Ur Oxycodone Screen NEGATIVE, Urine Methadone Screen NEGATIVE, Ur Propoxyphene Screen NEGATIVE, Ur Barbiturates Screen NEGATIVE, Ur Tricyclics Screen NEGATIVE, Ur Phencyclidine Scrn NEGATIVE, Ur Amphetamine Screen POSITIVE H, U Methamphetamines Scrn NEGATIVE, U Benzodiazepines Scrn NEGATIVE, Urine Cocaine Screen NEGATIVE, U Cannabinoids Screen NEGATIVE 01/02/19 05:37: Sodium 133 L, Potassium 4.0, Chloride 99 L, Carbon Dioxide 24, Anion Gap 10.0, BUN 20, Creatinine 0.7, Estimated GFR (MDRD) 119, Glucose 111 H, Calcium 8.3 L, Phosphorus 4.5, Magnesium 2.2 01/02/19 05:37: WBC 15.1 H, RBC 4.21 L, Hgb 11.9 L, Hct 36.8 L, MCV 87.4, MCH 28.3, MCHC 32.3, RDW 14.7, Plt Count 158, MPV 9.7, Neut # (Auto) Not Reportable, Lymph # (Auto) Not Reportable, [place] # (Auto) Not Reportable, Eos # (Auto) Not Reportable, Baso # (Auto) Not Reportable, Absolute Nucleated RBC Not Reportable, Total Counted 100, Band Neuts % (Manual) 0, Abnorm Lymph % (Manual) 0, Nucleated RBC % Not Reportable, Neutrophils # (Manual) 11.5 H, Lymphocytes # (Manual) 1.2 L, Monocytes # (Manual) 2.3 H, Eosinophils # (Manual) 0.2, Basophils # (Manual) 0.0, Differential Comment MANUAL DIFFERENTIAL, WBC Morphology NORMAL APPEARANCE, Platelet Estimate NORMAL (130-450,000), Platelet Morphology NORMAL APPEARANCE, RBC Morph Micro Appear NORMAL APPEARANCE 01/01/19 23:50: Total Creatine Kinase 179 01/01/19 23:50: Lactic Acid 1.0 01/01/19 18:40: C-Reactive Protein 27.0 H 01/01/19 18:40: Sodium 132 L, Potassium 3.3 L, Chloride 97 L, Carbon Dioxide 25, Anion Gap 10.0, BUN 27 H, Creatinine 0.7, Estimated GFR (MDRD) 119, Glucose 107 H, Calcium 8.7, Total Bilirubin 1.9 H, AST 44 H, ALT 51, Alkaline Phosphatase 142 H, Total Creatine Kinase 213, Total Protein 7.2, Albumin 3.1 L, Globulin 4.1, Albumin/Globulin Ratio 0.8 L, Lipase 48 01/01/19 18:40: ESR 72 H 01/01/19 18:40: WBC 13.3 H, RBC 4.15 L, Hgb 11.9 L, Hct 35.6 L, MCV 85.8, MCH 28.7, MCHC 33.4, RDW 14.3, Plt Count 166, MPV 9.7, Neut # (Auto) Not Reportable, Lymph # (Auto) Not Reportable, [place] # (Auto) Not Reportable, Eos # (Auto) Not Reportable, Baso # (Auto) Not Reportable, Absolute Nucleated RBC Not Reportable, Total Counted 100, Band Neuts % (Manual) 8, Abnorm Lymph % (Manual) 0, Nucleated RBC % Not Reportable, Neutrophils # (Manual) 10.4 H, Lymphocytes # (Manual) 0.9 L, Monocytes # (Manual) 1.9 H, Eosinophils # (Manual) 0.1, Basophils # (Manual) 0.0, Differential Comment MANUAL DIFFERENTIAL, Manual Slide Review Indicated, Platelet Estimate NORMAL (130-450,000), Platelet Morphology NORMAL APPEARANCE, RBC Morph Micro Appear NORMAL APPEARANCE Lab results reviewed: Yes Fish Bones: 01/03/19 05:36 01/03/19 05:36 Home Medications and Allergies Active Medications Acetaminophen (Tylenol) 650 mg PO Q4HR PRN PRN Reason: Pain 1 to 4 Last Admin: 01/03/19 10:08 Dose: 650 mg Heparin Sodium (Porcine) () 5,000 unit SUBQ BID AHMET Last Admin: 01/03/19 10:29 Dose: 5,000 unit Hydromorphone HCl (Dilaudid Inj Carp) 2 mg IVP Q2HR PRN PRN Reason: Pain 8 to 10 Last Admin: 01/03/19 10:08 Dose: 2 mg Lactated Ringer's (Lr) 1,000 mls @ 100 mls/hr IV .Q10H [facility] Last Admin: 01/03/19 10:10 Dose: 100 mls/hr Clindamycin Phosphate (Cleocin 600 Mg/50 Ml) 50 mls @ 100 mls/hr IV Q8HR [facility] Last Admin: 01/03/19 05:56 Dose: 100 mls/hr Vancomycin HCl 1.25 gm/ Sodium (Chloride) 250 mls @ 250 mls/hr IV Q12H [facility] Stop: 01/03/19 14:00 Last Admin: 01/03/19 10:47 Dose: 250 mls/hr Piperacillin Sod/Tazobactam (Sod 3.375 gm/ Sodium Chloride) 100 mls @ 25 mls/hr IV Q8H [facility] Last Admin: 01/03/19 10:10 Dose: 25 mls/hr Vancomycin HCl 1 gm/Vancomycin HCl 500 mg/ Sodium Chloride 500 mls @ 250 mls/hr IV Q12H [facility] Ketorolac Tromethamine (Toradol Inj (30mg)) 30 mg IVP Q6HR PRN PRN Reason: PAIN Stop: 01/06/19 22:48 Last Admin: 01/03/19 05:55 Dose: 30 mg Nicotine (Nicoderm) 1 patch TOP DAILY [facility] Last Admin: 01/03/19 10:17 Dose: Not Given Ondansetron HCl (Zofran Inj) 4 mg IVP Q6HR PRN PRN Reason: Nausea / Vomiting Multivit/Folic Acid/Iron (Trinatal Rx 1) 1 tab PO DAILYWM [facility] Last Admin: 01/03/19 10:10 Dose: 1 tab Saccharomyces Boulardii (Florastor) 250 mg PO BIDWM [facility] Last Admin: 01/03/19 10:10 Dose: 250 mg Sodium Chloride (Normal Saline Flush 0.9%) 10 ml IVP PRN PRN PRN Reason: NEEDED PER PROVIDER ORDERS Last Admin: 01/03/19 10:48 Dose: 10 ml Sodium Chloride (Normal Saline Flush 0.9%) 10 ml IVP 0100,0900,1700 [facility] Last Admin: 01/03/19 10:09 Dose: 10 ml Thiamine HCl (Vitamin B-1) 100 mg PO DAILY [facility] Last Admin: 01/03/19 10:29 Dose: 100 mg Lisinopril 40 mg PO DAILY 06/15/17 Allergies/Adverse Reactions: Allergies Allergy/AdvReac Type Severity Reaction Status Date / Time No Known Drug Allergies Allergy Verified 01/01/19 15:57 Anes History & Medical History - Anesthetic History Anesthesia Complications: reports: No previous complications Family history of Anesthesia Complications: Denies Family history of Malignant Hyperthermia: Denies - Medical History Cardiovascular: reports: Hypertension Pulmonary: reports: None Gastrointestinal: reports: None Neuro: reports: None Musculoskeletal: reports: Other (cellulitis R hand/forearm) Endocrine/Autoimmune: reports: None Skin: reports: Other (Piror history of cellulitis) Smoking Status: Current every day smoker Psychosocial: reports: Alcohol, Amphetamine (+UA) Exam General: Alert, Oriented x3, Cooperative Dental: Loose/Frag, Partials Upper Mouth Openin Fingerbreadth Neck Mobility: Normal Mallampati classification: II Thyromental Distance: 4-6 cm Respiratory: Lungs clear, Normal breath sounds Cardiovascular: Regular rate Neurological: Normal speech Mental/Cognitive Status: Alert/Oriented X3, Normal for patient Cognitive Status: Within normal limits Plan Anesthesia Type: General Consent for Procedure(s) Verified and Reviewed: Yes Code Status: Attempt Resuscitation ASA classification: 2-Mild systemic disease Is this case an emergency?: Yes
--- NOTE | 2019-01-03 13:33 | Ultrasound Report ---
Reason: right hand edema, infection Procedure Date: 01/03/2019 Accession Number: [id number] / [id number] Procedure: US - Ext Limited Non Vascular CPT Code: FULL RESULT: EXAM: RIGHT/LEFT UPPER EXTREMITY ULTRASOUND - LIMITED EXAM DATE: 01/03/2019 12:05 PM. CLINICAL HISTORY: Diffuse right forearm and right hand cellulitis. Possible focal abscess. COMPARISON: CT upper extremity 01/01/2019. TECHNIQUE: Real-time scanning was performed by technologist and by myself with static images obtained. FINDINGS: There is marked diffuse edema throughout the right forearm and hand. Multiple dilated veins are present. No evidence of focal fluid collection. Dr. Padron was present. IMPRESSION: Findings consistent with diffuse cellulitis. No focal fluid collection. RADIA
[2019-01-03] MEDS ORDERED: LACTATED RINGERS 1,000 ML IV ONE (14:30)
--- NOTE | 2019-01-03 16:03 | OPERATIVE REPORT ---
Operative Report - General Admit Date: 01/01/19 Procedure Date: 01/03/19 Planned Procedure: Incision and drainage of right infected hand/wrist/forearm Pre-Op Diagnosis: Right infected hand/wrist/forearm Procedure Performed: Incision and drainage of right hand/wrist/forearm Post Op Diagnosis: Same - Procedure Note Primary Surgeon: Sia Padron MD Anesthesia Provider: Conchita Mckeon CRNA Anesthesia Technique: General LMA Pathology: Seropurulent drainage from a) dorsal wrist blister and b) wound sent to microbiology for aerobic and anaerobic cultures and sensitivities IV Fluids (mL): 800 Estimated Blood Loss (mL): 20 Drain/Tube Type: Hemovac (Two 1/4 inch [place] drains placed - in dorsal wrist and volar wrist wounds) Indications: Small amount of seropurulent draiange (0.5ml) in extensor digiti five and extensor communis tendon sheath. Small amount (0.5 ml) of seropurulent drainage from [place] canal Complications: None
[2019-01-03] MEDS ORDERED: SODIUM CHLORIDE FLUSH 0.9% 10 ML SYRINGE IVP PRN (16:08)
[2019-01-03] MEDS ORDERED: ONDANSETRON 4 MG/2 ML VIAL IVP PRN (16:08)
[2019-01-03] MEDS ORDERED: PROCHLORPERAZINE 10 MG/2 ML VIAL IVP PRN (16:08)
[2019-01-03] MEDS ORDERED: HYDROmorphone 0.5 MG/0.5 ML SYRINGE ONE (16:38)
[2019-01-03] MEDS ORDERED: SODIUM CHLORIDE FLUSH 0.9% 10 ML SYRINGE IVP SCH (17:00)
[2019-01-03] MEDS: SODIUM CHLORIDE 0.9% 1,000 ML IV SCH (17:08)
[2019-01-03] MEDS: ACETAMINOPHEN 325 MG TABLET PO SCH ×2 (17:17→20:45)
--- NOTE | 2019-01-03 17:39 | OPERATIVE REPORT ---
DATE OF SERVICE: 01/03/2019 Physician: Pepe Padron MD PREOPERATIVE DIAGNOSIS: Right hand/wrist/forearm infection. POSTOPERATIVE DIAGNOSIS: Right hand/wrist/forearm infection. PROCEDURE PERFORMED: Incision and drainage of infected right hand/wrist/forearm. SURGEON: Pepe Padron MD ANESTHESIA: General. DESCRIPTION OF PROCEDURE: The patient was taken to the operating room on the afternoon of 01/03/2019, where he was placed under general anesthetic in the supine position without any complications. We then prepped and draped the right upper extremity in the usual fashion for our procedure. A tourniquet had been applied to the arm prior to draping. After 30 seconds of gravity exsanguination, we then inflated the arm pneumatic tourniquet to 250 mmHg pressure. Making a longitudinal dorsal skin incision just in the vicinity of the ulnar styloid on the extensor surface of his forearm and wrist, we dissected down to the extensor compartments. We encountered a small amount of seropurulent drainage, which came from the sheath of the extensor digitorum 5 and the extensor communis sheath. This was opened widely. No other areas of drainage or purulence were noted on exploration from the dorsum of the distal forearm, wrist, and proximal hand. We then directed our attention palmar huerta. We then made a proximal palmar incision and did a carpal tunnel release. The median nerve was then explored and appeared to be within normal limits as was the flexor extensor tendons within the carpal tunnel. No purulence noted here. We then noted some seropurulent drainage coming from [place]'s canal. We opened up the canal and explored this. Approximately 0.5 mL of seropurulent drainage came from [place]'s canal. No other areas of purulent drainage were noted on the palmar aspect of the hand or wrist area. We then copiously irrigated both the dorsal and volar wounds with a pulse lavage of sterile saline. A total of 7000 mL of irrigation solution was used to irrigate both wounds out. We then placed a quarter-inch Melissa drain, both in the dorsal and volar wounds, having the drains exit from the respective wounds and coming out through a counter incision. We then loosely closed his 2 surgical wounds with horizontal mattress stitches of 3-0 nylon suture. We then dressed his wounds with fluffs and put the hand into a bulky hand dressing. We then released the tourniquet. Tourniquet time was 44 minutes. REPLACEMENT: 800 mL crystalloid. ESTIMATED BLOOD LOSS: 20 mL. PLAN: We will tentatively schedule the patient for a repeat surgical exploration of his hand and wrist in the operating room on Sunday morning. If his condition improves over the next 48 hours, we may cancel this surgical reexploration. In the meantime, we will keep the hand elevated in a stockinette sling and IV pole. We will continue with IV antibiotics. Specimens of the seropurulent drainage noted in his wound were sent to Microbiology for Gram stain and aerobic and anaerobic cultures and sensitivities. TD: 01/03/2019 16:20 REVISED 01/06/19jll Date of Service=01/03/19 Orig. signed 01/04/19@1113 MTDD
[2019-01-03] MEDS: VANCOMYCIN INJ 1 GM, VANCOMYCIN INJ 500 MG in SODIUM CHLORIDE 0.9% 500 ML IV SCH (22:15)
[2019-01-04] MEDS: PIPERACILLIN/TAZOBACTAM 3.375 GM in SODIUM CHLORIDE 0.9% MINIBAG 100 ML IV SCH ×3 (01:14→17:38)
[2019-01-04] MEDS: ACETAMINOPHEN 325 MG TABLET PO SCH ×6 (01:14→21:52)
[2019-01-04] MEDS: SODIUM CHLORIDE FLUSH 0.9% 10 ML SYRINGE IVP PRN ×5 (01:15→21:53)
[2019-01-04] MEDS: SODIUM CHLORIDE FLUSH 0.9% 10 ML SYRINGE IVP SCH ×3 (01:15→15:57)
[2019-01-04] MEDS: HYDROmorphone 1 MG/ML CARPUJECT IVP PRN ×7 (01:16→21:03)
[2019-01-04] MEDS: SODIUM CHLORIDE 0.9% 1,000 ML IV SCH (02:46)
[2019-01-04] MEDS: KETOROLAC 30 MG/ML VIAL IVP PRN ×3 (02:50→16:47)
[2019-01-04 05:36] LABS: BASOPHILS # (AUTO) 0.1 10^3/uL (0.0-0.1); BASOPHILS % (AUTO) 0.6 %; EOSINOPHILS % (AUTO) 0.1 %; HGB - HEMOGLOBIN 10.9 g/dL (14.0-18.0); LYMPHOCYTES # (AUTO) 0.8 10^3/uL (1.5-3.5); LYMPHOCYTES % (AUTO) 7.5 %; MEAN CORPUSCULAR HEMOGLOBIN 28.2 pg (27.0-31.0); MEAN CORPUSCULAR HGB CONC 31.3 g/dL (32.0-36.0); MEAN CORPUSCULAR VOLUME 90.2 fL (80.0-94.0); MONOCYTES % (AUTO) 9.2 %; NEUTROPHILS # (AUTO) 8.9 10^3/uL (1.5-6.6); NEUTROPHILS % (AUTO) 79.8 %; PLT - PLATELET COUNT 185 10^3/uL (130-450); RED BLOOD COUNT 3.86 10^6/uL (4.70-6.10); RED CELL DISTRIBUTION WIDTH 15.5 % (12.0-15.0); WHITE BLOOD COUNT 11.1 x10^3/uL (4.8-10.8)
[2019-01-04 05:43] LABS: CALCIUM 7.9 mg/dL (8.5-10.3); CREATININE 0.8 mg/dL (0.6-1.2); MAGNESIUM 2.3 mg/dL (1.7-2.8); PHOSPHORUS 3.2 mg/dL (2.5-4.6)
[2019-01-04] MEDS: CLINDAMYCIN 600 MG/50 ML 50 ML IV SCH ×3 (05:55→21:52)
[2019-01-04] MEDS: NICOTINE 14 MG PATCH TOP SCH (08:49)
[2019-01-04] MEDS: THIAMINE 100 MG TABLET PO SCH (08:49)
[2019-01-04] MEDS: PRENATAL VITAMIN TABLET PO SCH (08:49)
[2019-01-04] MEDS: HEPARIN 5,000 UNIT/ML VIAL SUBQ SCH ×2 (08:49→21:03)
[2019-01-04] MEDS: SACCHAROMYCES BOULARDII 250 MG CAPSULE PO SCH ×2 (08:49→16:48)
[2019-01-04] MEDS: CALCIUM CARBONATE CHEW 500 MG TABLET PO PRN ×2 (09:07→17:38)
[2019-01-04] MEDS: VANCOMYCIN INJ 1 GM, VANCOMYCIN INJ 500 MG in SODIUM CHLORIDE 0.9% 500 ML IV SCH ×2 (10:45→21:52)
--- NOTE | 2019-01-04 11:17 | PROVIDER PROGRESS NOTE ---
Subjective - Prog Note Date Prog Note Date: 01/04/19 Prog Note Time: 11:14 - Subjective Pt reports feeling: Improved (Less pain. Better hand motion. No numbness.) Objective - Vital Signs/Intake & Output Vital Signs: Vital Signs x48h Temp Pulse Resp BP Pulse Ox 01/04/19 09:00 36.6 C 83 18 150/78 H 99 01/04/19 04:58 36.5 C 84 16 147/88 H 98 Intake & Output: Intake & Output 01/01/19 01/02/19 01/03/19 01/04/19 23:59 23:59 23:59 23:59 Intake Total 2799.41 4491.667 4140 3298.333 Output Total 200 Balance 2799.41 4491.667 3940 3298.333 - Lab Results Fish Bones: 01/04/19 05:20 01/04/19 05:20 Other Labs: Lab Results x24hrs 01/04/19 01/04/19 Range/Units 05:20 05:20 WBC 11.1 H (4.8-10.8) x10^3/uL RBC 3.86 L (4.70-6.10) 10^6/uL Hgb 10.9 L (14.0-18.0) g/dL Hct 34.8 L (42.0-52.0) % MCV 90.2 (80.0-94.0) fL MCH 28.2 (27.0-31.0) pg MCHC 31.3 L (32.0-36.0) g/dL RDW 15.5 H (12.0-15.0) % Plt Count 185 (130-450) 10^3/uL MPV 10.0 (7.4-11.4) fL Neut # (Auto) 8.9 H (1.5-6.6) 10^3/uL Lymph # (Auto) 0.8 L (1.5-3.5) 10^3/uL [place] # (Auto) 1.0 (0.0-1.0) 10^3/uL Eos # (Auto) 0.0 (0.0-0.7) 10^3/uL Baso # (Auto) 0.1 (0.0-0.1) 10^3/uL Absolute Nucleated RBC 0.00 x10^3/uL Nucleated RBC % 0.0 /100WBC Sodium 138 (135-145) mmol/L Potassium 4.5 (3.5-5.0) mmol/L Chloride 105 (101-111) mmol/L Carbon Dioxide 24 (21-32) mmol/L Anion Gap 9.0 (6-13) BUN 15 (6-20) mg/dL Creatinine 0.8 (0.6-1.2) mg/dL Estimated GFR (MDRD) 102 (>89) Glucose 207 H (70-100) mg/dL Calcium 7.9 L (8.5-10.3) mg/dL Phosphorus 3.2 (2.5-4.6) mg/dL Magnesium 2.3 (1.7-2.8) mg/dL - Other Results/Comments Other Results/Comments: EXAM: Right hand: In bulky hand dressing. Has kept hand elevated over night. Sensation intact throughout. Mild digit swelling. Good cap filling. Better PROM and AROM of digits. Sepsis Event Note (H) - Evaluation Current Stage of Sepsis: Sepsis Possible source of Sepsis: positive: Skin/soft tissue - Sepsis Criteria Sepsis Criteria: Recorded Heart Rate greater than 90 bpm, WBC count greater than 12,000 or less than 4000 Assessment/Plan - Problem List (1) Right forearm cellulitis Impression: Improved PLAN: To OR for exploration and washout of right hand wound as needed. Risk and benefits of surgery explained. Questions answered. Arm marked. Consent signed.
--- NOTE | 2019-01-04 11:32 | PROVIDER PROGRESS NOTE ---
Subjective - Prog Note Date Prog Note Date: 01/04/19 Prog Note Time: 13:12 - Subjective Subjective: his pain is still mainly right hand. swelling down. no fever since surgery. Ortho will take back to OR. Cultures were sterile from the wound so far. I did ask about the amphetamine in his tox screen. He has occasional use but denies injection. He wants to make sure no one finds out about this and that his records is closed. I explained about HIPPA and that his providers, he and his insurance company have access. Current Medications - Current Medications Current Medications: Active Medications Acetaminophen (Tylenol) 650 mg PO Q4HR [facility] Last Admin: 01/04/19 08:49 Dose: 650 mg Calcium Carbonate/Glycine (Tums) 500 mg PO BID PRN PRN Reason: Heartburn Last Admin: 01/04/19 09:07 Dose: 500 mg Docusate Sodium (Colace 100mg Capsule) 100 mg PO BID PRN PRN Reason: Constipation Heparin Sodium (Porcine) () 5,000 unit SUBQ BID [facility] Last Admin: 01/04/19 08:49 Dose: 5,000 unit Hydromorphone HCl (Dilaudid Inj Carp) 2 mg IVP Q2HR PRN PRN Reason: Pain 8 to 10 Last Admin: 01/04/19 08:50 Dose: 2 mg Clindamycin Phosphate (Cleocin 600 Mg/50 Ml) 50 mls @ 100 mls/hr IV Q8HR [facility] Last Infusion: 01/04/19 07:30 Dose: Infused Piperacillin Sod/Tazobactam (Sod 3.375 gm/ Sodium Chloride) 100 mls @ 25 mls/hr IV Q8H [facility] Last Infusion: 01/04/19 09:05 Dose: 25 mls/hr Vancomycin HCl 1 gm/Vancomycin HCl 500 mg/ Sodium Chloride 500 mls @ 250 mls/hr IV Q12H [facility] Last Admin: 01/04/19 10:45 Dose: 250 mls/hr Sodium Chloride (Normal Saline 0.9%) 1,000 mls @ 100 mls/hr IV .Q10H [facility] Last Infusion: 01/04/19 10:55 Dose: 0 mls/hr Ketorolac Tromethamine (Toradol Inj (30mg)) 30 mg IVP Q6HR PRN PRN Reason: PAIN Stop: 01/06/19 22:48 Last Admin: 01/04/19 10:45 Dose: 30 mg Nicotine (Nicoderm) 1 patch TOP DAILY [facility] Last Admin: 01/04/19 08:49 Dose: Not Given Ondansetron HCl (Zofran Inj) 4 mg IVP Q6HR PRN PRN Reason: Nausea / Vomiting Multivit/Folic Acid/Iron (Trinatal Rx 1) 1 tab PO DAILYWM [facility] Last Admin: 01/04/19 08:49 Dose: 1 tab Prochlorperazine Edisylate (Compazine Inj) 10 mg IVP Q6HR PRN PRN Reason: Nausea / Vomiting Saccharomyces Boulardii (Florastor) 250 mg PO BIDWM [facility] Last Admin: 01/04/19 08:49 Dose: 250 mg Senna (Senokot) 17.2 mg PO Q12H PRN PRN Reason: Constipation Sodium Chloride (Normal Saline Flush 0.9%) 10 ml IVP PRN PRN PRN Reason: NEEDED PER PROVIDER ORDERS Last Admin: 01/04/19 01:15 Dose: 10 ml Sodium Chloride (Normal Saline Flush 0.9%) 10 ml IVP 0100,0900,1700 [facility] Last Admin: 01/04/19 08:50 Dose: Not Given Thiamine HCl (Vitamin B-1) 100 mg PO DAILY [facility] Last Admin: 01/04/19 08:49 Dose: 100 mg Lisinopril 40 mg PO DAILY 06/15/17 Objective - Vital Signs/Intake & Output Vital Signs: Vital Signs x48h Temp Pulse Resp BP Pulse Ox 01/04/19 09:00 36.6 C 83 18 150/78 H 99 01/04/19 04:58 36.5 C 84 16 147/88 H 98 Intake & Output: Intake & Output 01/01/19 01/02/19 01/03/19 01/04/19 23:59 23:59 23:59 23:59 Intake Total 2799.41 4491.667 4140 3298.333 Output Total 200 Balance 2799.41 4491.667 3940 3298.333 - Objective General Appearance: positive: Mild distress (from pain in hand), Other (woke him up this am, so slightly delayed psychomotor) Eyes Bilateral: positive: PERRL, EOMI ENT: positive: Other (poor dentition) Neck: positive: No JVD. negative: Stiff neck, Carotid bruit Respiratory: positive: Chest non-tender. negative: Wheezes, Rales, Rhonchi Cardiovascular: positive: Regular rate & rhythm. negative: Systolic murmur, Gallop/S4, Friction rub Abdomen: positive: Non-tender, No organomegaly, Nml bowel sounds, No distention Skin: positive: Warm, Dry, Other (only abnormality is right hand that is wrapped, redness of forearm less, swelling less) Extremities: positive: No pedal edema Neurologic/Psychiatric: positive: Oriented x3, CN's nml (2-12), Motor nml - Lab Results Fish Bones: 01/04/19 05:20 01/04/19 05:20 Other Labs: Lab Results x24hrs 01/04/19 01/04/19 Range/Units 05:20 05:20 WBC 11.1 H (4.8-10.8) x10^3/uL RBC 3.86 L (4.70-6.10) 10^6/uL Hgb 10.9 L (14.0-18.0) g/dL Hct 34.8 L (42.0-52.0) % MCV 90.2 (80.0-94.0) fL MCH 28.2 (27.0-31.0) pg MCHC 31.3 L (32.0-36.0) g/dL RDW 15.5 H (12.0-15.0) % Plt Count 185 (130-450) 10^3/uL MPV 10.0 (7.4-11.4) fL Neut # (Auto) 8.9 H (1.5-6.6) 10^3/uL Lymph # (Auto) 0.8 L (1.5-3.5) 10^3/uL [place] # (Auto) 1.0 (0.0-1.0) 10^3/uL Eos # (Auto) 0.0 (0.0-0.7) 10^3/uL Baso # (Auto) 0.1 (0.0-0.1) 10^3/uL Absolute Nucleated RBC 0.00 x10^3/uL Nucleated RBC % 0.0 /100WBC Sodium 138 (135-145) mmol/L Potassium 4.5 (3.5-5.0) mmol/L Chloride 105 (101-111) mmol/L Carbon Dioxide 24 (21-32) mmol/L Anion Gap 9.0 (6-13) BUN 15 (6-20) mg/dL Creatinine 0.8 (0.6-1.2) mg/dL Estimated GFR (MDRD) 102 (>89) Glucose 207 H (70-100) mg/dL Calcium 7.9 L (8.5-10.3) mg/dL Phosphorus 3.2 (2.5-4.6) mg/dL Magnesium 2.3 (1.7-2.8) mg/dL ABX Reporting Has patient been on IV antibiotics over the past 48 hours?: Yes Sepsis Event Note (H) - Evaluation Current Stage of Sepsis: Resolved Possible source of Sepsis: positive: Skin/soft tissue - Sepsis Criteria Sepsis Criteria: Recorded Heart Rate greater than 90 bpm, WBC count greater than 12,000 or less than 4000 Assessment/Plan - Problem List (1) Right forearm cellulitis Impression: This is the source of his sepsis; the sepsis has resolved. This is nonpurulent cellulitis but there is extensive edema, pain and bullae over the dorsum of the right hand. His was and has remained neurovascularly intact although he does report some numbness in his finger tips. On admission, ESR 72 and CRP 27 eleva michael. Normal CK, AST is only minimally elevated. Given the progression of his edema and pain, needed evaluation for nec fasc. LRINEC score is 3 but CRP is pending. Receiving Cefazolin in the ER. Right arm CT compared to duplex and has severe SQ edema without soft tissue gas. Large fluid loculations surrounding the extensor tendons posteriorly at level of carpus. Small IM fluid collecitons within the instrinsic musccles of the hand palm to the 2nd -4th MCP measuring up to 17x5 mm. Additional deep space edema/loculated fluid between the distal radius and ulna [id number] mm. This was discussed with orthopedic surgery on admit and Dr. Padron saw the patient. 01/03, since he is not better overnight, went to the OR but checked an US first and no discrete abcess seen. In the OR serosanguinous fluid along severel planes of tissue in the ventral wrist slice and palm slice but no abcess. hand shrunk and improved with just that. So far wound cultures negative from 01/03. - Expanded abx coverage with Clindamycin, Zosyn and Vancomycin IV given concern for possible nec fasc, Day #3 - Follow CRP daily and it is going down - Neurovascular checks being done, and I saw him 3 times 01/02 with no change in exam from the morning and over the course of the day. After 01/03 look in the OR noticeable decrease in hand swelling. He now has his hand up in sling. - Blood cultures negative - Trend CK and AST (3) Hyponatremia Conclusion/Plan: Likely hypovolemic hyponatremia. Sodium 132>133>136>138 this am with IV hydration. Continue IVF (4) Hypokalemia Conclusion/Plan: K is 3.3 on admission>4.0 on oral replacement. continue to follow. Will replace orally. (5) Alcohol use Conclusion/Plan: Drinks a 6 pack of beer daily but has decreased his consumption over last few days. Will monitor for alcohol withdrawal. So far BP and pulse stable. On vitamins, thiamine. (6) tobacco abuse Nicotine patch requested by patient and ordered. (7) Amphetamine abuse Drug screen positive. He did have a cold over a week ago and had to take OTC meds, so may be from that but he also states he does do speed and last use last week. Advised on stopping that.
[2019-01-04] MEDS ORDERED: KETOROLAC 30 MG/ML VIAL IVP SCH (19:00)
[2019-01-04] MEDS ORDERED: VANCOMYCIN 500 MG VIAL ONE (21:35)
[2019-01-04] MEDS ORDERED: VANCOMYCIN 1 GM VIAL ONE (21:35)
[2019-01-05] MEDS: KETOROLAC 30 MG/ML VIAL IVP SCH ×4 (00:12→17:40)
[2019-01-05] MEDS: CALCIUM CARBONATE CHEW 500 MG TABLET PO PRN ×2 (00:14→20:01)
[2019-01-05] MEDS: SODIUM CHLORIDE FLUSH 0.9% 10 ML SYRINGE IVP SCH ×3 (00:14→17:40)
[2019-01-05] MEDS: PIPERACILLIN/TAZOBACTAM 3.375 GM in SODIUM CHLORIDE 0.9% MINIBAG 100 ML IV SCH ×3 (01:33→17:47)
[2019-01-05] MEDS: HYDROmorphone 1 MG/ML CARPUJECT IVP PRN ×5 (01:33→15:22)
[2019-01-05] MEDS: ACETAMINOPHEN 325 MG TABLET PO SCH ×6 (01:35→21:16)
[2019-01-05] MEDS: CLINDAMYCIN 600 MG/50 ML 50 ML IV SCH (05:58)
--- NOTE | 2019-01-05 07:23 | ANESTHESIA ---
Pre-Anesthesia VS, & Labs - Diagnosis R hand/forearm swelling, infectious process - Procedure I&D R UE Vital Signs: Temp Pulse Resp BP Pulse Ox 36.7 C 69 20 146/88 H 98 01/05/19 00:00 01/05/19 06:12 01/05/19 00:00 01/05/19 06:12 01/05/19 00:00 Height 5 ft 10 in Weight (kg) 81.6 kg Body Mass Index 25.8 - NPO >8 hours - Lab Results Current Lab Results: Laboratory Tests 01/05/19 05:00: C-Reactive Protein 12.7 H 01/05/19 05:00: ESR 78 H 01/04/19 05:20: C-Reactive Protein 19.0 H 01/04/19 05:20: ESR 57 H 01/04/19 05:20: Sodium 138, Potassium 4.5, Chloride 105, Carbon Dioxide 24, Anion Gap 9.0, BUN 15, Creatinine 0.8, Estimated GFR (MDRD) 102, Glucose 207 H, Calcium 7.9 L, Phosphorus 3.2, Magnesium 2.3 01/04/19 05:20: WBC 11.1 H, RBC 3.86 L, Hgb 10.9 L, Hct 34.8 L, MCV 90.2, MCH 28.2, MCHC 31.3 L, RDW 15.5 H, Plt Count 185, MPV 10.0, Neut # (Auto) 8.9 H, Lymph # (Auto) 0.8 L, [place] # (Auto) 1.0, Eos # (Auto) 0.0, Baso # (Auto) 0.1, Absolute Nucleated RBC 0.00, Nucleated RBC % 0.0 01/03/19 09:50: Last Dose Date 01/03/19, Last Dose Time 0029, Vancomycin Trough 8.3 L 01/03/19 05:36: Sodium 136, Potassium 4.2, Chloride 103, Carbon Dioxide 22, Anion Gap 11.0, BUN 14, Creatinine 0.7, Estimated GFR (MDRD) 119, Glucose 124 H, Calcium 8.2 L, Phosphorus 4.0, Magnesium 2.4 01/03/19 05:36: WBC 8.0, RBC 3.98 L, Hgb 11.4 L, Hct 35.5 L, MCV 89.2, MCH 28.6, MCHC 32.1, RDW 15.0, Plt Count 144, MPV 10.4, Neut # (Auto) 5.5, Lymph # (Auto) 0.9 L, [place] # (Auto) 1.2 H, Eos # (Auto) 0.2, Baso # (Auto) 0.1, Absolute Nucleated RBC 0.00, Nucleated RBC % 0.0 01/03/19 04:42: Urine Opiates Screen POSITIVE H, Ur Oxycodone Screen NEGATIVE, Urine Methadone Screen NEGATIVE, Ur Propoxyphene Screen NEGATIVE, Ur Barbiturates Screen NEGATIVE, Ur Tricyclics Screen NEGATIVE, Ur Phencyclidine Scrn NEGATIVE, Ur Amphetamine Screen POSITIVE H, U Methamphetamines Scrn NEGATIVE, U Benzodiazepines Scrn NEGATIVE, Urine Cocaine Screen NEGATIVE, U Cannabinoids Screen NEGATIVE 01/02/19 05:37: Sodium 133 L, Potassium 4.0, Chloride 99 L, Carbon Dioxide 24, Anion Gap 10.0, BUN 20, Creatinine 0.7, Estimated GFR (MDRD) 119, Glucose 111 H, Calcium 8.3 L, Phosphorus 4.5, Magnesium 2.2 01/02/19 05:37: WBC 15.1 H, RBC 4.21 L, Hgb 11.9 L, Hct 36.8 L, MCV 87.4, MCH 28.3, MCHC 32.3, RDW 14.7, Plt Count 158, MPV 9.7, Neut # (Auto) Not Reportable, Lymph # (Auto) Not Reportable, [place] # (Auto) Not Reportable, Eos # (Auto) Not Reportable, Baso # (Auto) Not Reportable, Absolute Nucleated RBC Not Reportable, Total Counted 100, Band Neuts % (Manual) 0, Abnorm Lymph % (Manual) 0, Nucleated RBC % Not Reportable, Neutrophils # (Manual) 11.5 H, Lymphocytes # (Manual) 1.2 L, Monocytes # (Manual) 2.3 H, Eosinophils # (Manual) 0.2, Basophils # (Manual) 0.0, Differential Comment MANUAL DIFFERENTIAL, WBC Morphology NORMAL APPEARANCE, Platelet Estimate NORMAL (130-450,000), Platelet Morphology NORMAL APPEARANCE, RBC Morph Micro Appear NORMAL APPEARANCE 01/01/19 23:50: Total Creatine Kinase 179 01/01/19 23:50: Lactic Acid 1.0 01/01/19 18:40: C-Reactive Protein 27.0 H 01/01/19 18:40: Sodium 132 L, Potassium 3.3 L, Chloride 97 L, Carbon Dioxide 25, Anion Gap 10.0, BUN 27 H, Creatinine 0.7, Estimated GFR (MDRD) 119, Glucose 107 H, Calcium 8.7, Total Bilirubin 1.9 H, AST 44 H, ALT 51, Alkaline Phosphatase 142 H, Total Creatine Kinase 213, Total Protein 7.2, Albumin 3.1 L, Globulin 4.1, Albumin/Globulin Ratio 0.8 L, Lipase 48 01/01/19 18:40: ESR 72 H 01/01/19 18:40: WBC 13.3 H, RBC 4.15 L, Hgb 11.9 L, Hct 35.6 L, MCV 85.8, MCH 28.7, MCHC 33.4, RDW 14.3, Plt Count 166, MPV 9.7, Neut # (Auto) Not Reportable, Lymph # (Auto) Not Reportable, [place] # (Auto) Not Reportable, Eos # (Auto) Not Reportable, Baso # (Auto) Not Reportable, Absolute Nucleated RBC Not Reportable, Total Counted 100, Band Neuts % (Manual) 8, Abnorm Lymph % (Manual) 0, Nucleated RBC % Not Reportable, Neutrophils # (Manual) 10.4 H, Lymphocytes # (Manual) 0.9 L, Monocytes # (Manual) 1.9 H, Eosinophils # (Manual) 0.1, Basophils # (Manual) 0.0, Differential Comment MANUAL DIFFERENTIAL, Manual Slide Review Indicated, Pl atelet Estimate NORMAL (130-450,000), Platelet Morphology NORMAL APPEARANCE, RBC Morph Micro Appear NORMAL APPEARANCE Lab results reviewed: Yes Fish Bones: 01/04/19 05:20 01/04/19 05:20 Home Medications and Allergies Active Medications Acetaminophen (Tylenol) 650 mg PO Q4HR [facility] Last Admin: 01/05/19 05:18 Dose: 650 mg Calcium Carbonate/Glycine (Tums) 500 mg PO BID PRN PRN Reason: Heartburn Last Admin: 01/05/19 00:14 Dose: 500 mg Docusate Sodium (Colace 100mg Capsule) 100 mg PO BID PRN PRN Reason: Constipation Heparin Sodium (Porcine) () 5,000 unit SUBQ BID [facility] Last Admin: 01/04/19 21:03 Dose: 5,000 unit Hydromorphone HCl (Dilaudid Inj Carp) 2 mg IVP Q2HR PRN PRN Reason: Pain 8 to 10 Last Admin: 01/05/19 05:19 Dose: 2 mg Clindamycin Phosphate (Cleocin 600 Mg/50 Ml) 50 mls @ 100 mls/hr IV Q8HR [facility] Last Infusion: 01/05/19 06:35 Dose: Infused Piperacillin Sod/Tazobactam (Sod 3.375 gm/ Sodium Chloride) 100 mls @ 25 mls/hr IV Q8H [facility] Last Infusion: 01/05/19 06:07 Dose: Infused Vancomycin HCl 1 gm/Vancomycin HCl 500 mg/ Sodium Chloride 500 mls @ 250 mls/hr IV Q12H [facility] Last Infusion: 01/05/19 00:00 Dose: Infused Ketorolac Tromethamine (Toradol Inj (30mg)) 30 mg IVP Q6HR [facility] Stop: 01/10/19 00:00 Last Admin: 01/05/19 05:19 Dose: 30 mg Nicotine (Nicoderm) 1 patch TOP DAILY [facility] Last Admin: 01/04/19 08:49 Dose: Not Given Ondansetron HCl (Zofran Inj) 4 mg IVP Q6HR PRN PRN Reason: Nausea / Vomiting Multivit/Folic Acid/Iron (Trinatal Rx 1) 1 tab PO DAILYWM [facility] Last Admin: 01/04/19 08:49 Dose: 1 tab Prochlorperazine Edisylate (Compazine Inj) 10 mg IVP Q6HR PRN PRN Reason: Nausea / Vomiting Saccharomyces Boulardii (Florastor) 250 mg PO BIDWM [facility] Last Admin: 01/04/19 16:48 Dose: 250 mg Senna (Senokot) 17.2 mg PO Q12H PRN PRN Reason: Constipation Sodium Chloride (Normal Saline Flush 0.9%) 10 ml IVP PRN PRN PRN Reason: NEEDED PER PROVIDER ORDERS Last Admin: 01/04/19 21:53 Dose: 10 ml Sodium Chloride (Normal Saline Flush 0.9%) 10 ml IVP 0100,0900,1700 [facility] Last Admin: 01/05/19 00:14 Dose: 10 ml Thiamine HCl (Vitamin B-1) 100 mg PO DAILY [facility] Last Admin: 01/04/19 08:49 Dose: 100 mg Lisinopril 40 mg PO DAILY 06/15/17 Allergies/Adverse Reactions: Allergies Allergy/AdvReac Type Severity Reaction Status Date / Time No Known Drug Allergies Allergy Verified 01/01/19 15:57 Anes History & Medical History - Anesthetic History Anesthesia Complications: reports: No previous complications Family history of Anesthesia Complications: Denies Family history of Malignant Hyperthermia: Denies - Medical History Cardiovascular: reports: Hypertension Pulmonary: reports: None Gastrointestinal: reports: None Neuro: reports: None Musculoskeletal: reports: Other (cellulitis R hand/forearm) Endocrine/Autoimmune: reports: None Skin: reports: Other (Piror history of cellulitis) Smoking Status: Current every day smoker Psychosocial: reports: Alcohol, Amphetamine (+UA) Exam General: Alert, Oriented x3, Cooperative Dental: Loose/Frag, Partials Upper Mouth Openin Fingerbreadth Neck Mobility: Normal Mallampati classification: II Thyromental Distance: 4-6 cm Respiratory: Lungs clear, Normal breath sounds, No respiratory distress Cardiovascular: Regular rate Neurological: Normal speech Mental/Cognitive Status: Alert/Oriented X3, Normal for patient Cognitive Status: Within normal limits Plan Anesthesia Type: General Consent for Procedure(s) Verified and Reviewed: Yes Code Status: Attempt Resuscitation ASA classification: 2-Mild systemic disease Is this case an emergency?: Yes
[2019-01-05] MEDS ORDERED: LIDOCAINE-MPF 2% 5 ML VIAL IM ONE (08:00)
[2019-01-05] MEDS ORDERED: fentaNYL 100 MCG/2 ML VIAL IVP ONE (08:00)
[2019-01-05] MEDS ORDERED: MIDAZOLAM 2 MG/2 ML VIAL IVP ONE (08:00)
[2019-01-05] MEDS ORDERED: DEXAMETHASONE 4 MG/ML VIAL IVP ONE (08:00)
[2019-01-05] MEDS ORDERED: LACTATED RINGERS 1,000 ML IV ONE (08:00)
[2019-01-05] MEDS ORDERED: ONDANSETRON 4 MG/2 ML VIAL IVP ONE (08:00)
[2019-01-05] MEDS ORDERED: PROPOFOL 200 MG/20 ML VIAL IVP ONE (08:00)
[2019-01-05] MEDS ORDERED: SODIUM CHLORIDE FLUSH 0.9% 10 ML SYRINGE IVP PRN (09:18)
[2019-01-05] MEDS ORDERED: ONDANSETRON 4 MG/2 ML VIAL IVP PRN (09:18)
[2019-01-05] MEDS ORDERED: ACETAMINOPHEN 325 MG TABLET PO PRN (09:18)
[2019-01-05] MEDS ORDERED: PROCHLORPERAZINE 10 MG/2 ML VIAL IVP PRN (09:18)
--- NOTE | 2019-01-05 09:25 | OPERATIVE REPORT ---
Operative Report - General Admit Date: 01/01/19 Procedure Date: 01/05/19 Planned Procedure: Repeat Incision and drainage of right hand infection Pre-Op Diagnosis: Right hand infection Procedure Performed: Repeat incision and drainage of right hand infection Post Op Diagnosis: Same - Procedure Note Primary Surgeon: Sia Padron MD Anesthesia Provider: Conchita Mckeon CRNA Anesthesia Technique: General LMA IV Fluids (mL): 800 Estimated Blood Loss (mL): 20 Drain/Tube Type: Melissa Findings: Hand swelling and redness markedly diminished. Only scan seropurulent drainage (<0.1 ml)) seen superficially in dorsal wound. Complications: None
[2019-01-05] MEDS: NICOTINE 14 MG PATCH TOP SCH (09:58)
[2019-01-05 10:33] LABS: VANCOMYCIN,TROUGH 10.5 ug/mL (10.0-20.0)
--- NOTE | 2019-01-05 10:51 | OPERATIVE REPORT ---
DATE OF SERVICE: 01/05/2019 Physician: Pepe Padron MD PREOPERATIVE DIAGNOSIS: Right hand infection. POSTOPERATIVE DIAGNOSIS: Right hand infection. PROCEDURE PERFORMED: Repeat incision and drainage, right hand infection. SURGEON: Pepe Padron MD ANESTHESIA: General. DESCRIPTION OF PROCEDURE: The patient was taken to the operating room on the morning of 01/05/2019, where he was placed under general anesthetic in a supine position, without any complications. We rem keturah the bulky hand dressing and then removed the Boyce drains, which had been left after the initi al debridement and drainage of his right hand infection 2 days previously. We then prepped and drape d the hand free in the usual fashion for our procedure after we had placed an arm pneumatic tournique t on the right upper extremity. After 30 seconds of gravity exsanguination, we inflated the arm pneu matic tourniquet to 250 mmHg pressure. We then removed the skin stitches on both the dorsal and palm ar incisions in the upper extremity. A small amount of clot was taken out of each wound. Only a sca nt amount of seropurulent drainage was noted superficially in the dorsal wound in its midportion as w ell. This probably was less than 0.1 mL of seropurulent drainage. We then opened up the wounds to i nspect further. No other pockets of drainage or necrotic tissue were seen in either wound. We then copiously irrigated both wounds again with sterile saline using a total of 2000 mL of sterile saline with a bulb syringe. At the end of the procedure, we then reinserted 0.25-inch Boyce drains, 2 thr [id number] and 1 buried in the proximal portion of the dorsal wound. We then proceeded to loos stacy close both incisions using interrupted horizontal mattress stitches of 3-0 nylon suture. We then washed the wounds and applied a bulky hand dressing once again to the right upper extremity. We the n fashioned a tubular stockinette sling to assist in keeping the hand elevated while the patient is b edbound. The tourniquet was then released. The patient was taken to the recovery room in satisfacto ry condition. TOURNIQUET TIME: 31 minutes. REPLACEMENT: 800 mL crystalloid. BLOOD LOSS: 20 mL INTRAOPERATIVE COMPLICATIONS: None. PLAN: The patient will continue to keep the hand elevated. Continue with IV antibiotics. Have the wound again inspected at the bedside in 36-48 hours and the Melissa drains removed at that point. TD: 01/05/2019 09:31
[2019-01-05] MEDS: HEPARIN 5,000 UNIT/ML VIAL SUBQ SCH ×2 (11:20→21:17)
[2019-01-05] MEDS: SACCHAROMYCES BOULARDII 250 MG CAPSULE PO SCH ×2 (11:26→17:47)
[2019-01-05] MEDS: THIAMINE 100 MG TABLET PO SCH (11:26)
[2019-01-05] MEDS: PRENATAL VITAMIN TABLET PO SCH (11:26)
[2019-01-05] MEDS: SODIUM CHLORIDE 0.9% 1,000 ML IV SCH (11:27)
--- NOTE | 2019-01-05 11:57 | PROVIDER PROGRESS NOTE ---
Subjective - Prog Note Date Prog Note Date: 01/05/19 Prog Note Time: 11:55 - Subjective Subjective: back from the OR. Very minimal pus found. Ortho feels the strep from the culture is contaminant patient has been working at moving his hand, fingers and wrist and can demonstrate better movement than even yesterday Current Medications - Current Medications Current Medications: Active Medications Acetaminophen (Tylenol) 650 mg PO Q4HR [facility] Last Admin: 01/05/19 09:56 Dose: 650 mg Acetaminophen (Tylenol) 650 - 975 mg PO Q4HR PRN PRN Reason: PAIN Calcium Carbonate/Glycine (Tums) 500 mg PO BID PRN PRN Reason: Heartburn Last Admin: 01/05/19 00:14 Dose: 500 mg Docusate Sodium (Colace 100mg Capsule) 100 mg PO BID PRN PRN Reason: Constipation Heparin Sodium (Porcine) () 5,000 unit SUBQ BID [facility] Last Admin: 01/05/19 11:20 Dose: 5,000 unit Hydromorphone HCl (Dilaudid Inj Carp) 2 mg IVP Q2HR PRN PRN Reason: Pain 8 to 10 Stop: 01/05/19 18:00 Last Admin: 01/05/19 11:22 Dose: 2 mg Clindamycin Phosphate (Cleocin 600 Mg/50 Ml) 50 mls @ 100 mls/hr IV Q8HR [facility] Last Infusion: 01/05/19 06:35 Dose: Infused Piperacillin Sod/Tazobactam (Sod 3.375 gm/ Sodium Chloride) 100 mls @ 25 mls/hr IV Q8H [facility] Last Admin: 01/05/19 11:34 Dose: 25 mls/hr Sodium Chloride (Normal Saline 0.9%) 1,000 mls @ 100 mls/hr IV .Q10H [facility] Last Admin: 01/05/19 11:27 Dose: 100 mls/hr Vancomycin HCl 1.75 gm/ Sodium (Chloride) 500 mls @ 250 mls/hr IV Q12H [facility] Ketorolac Tromethamine (Toradol Inj (30mg)) 30 mg IVP Q6HR [facility] Stop: 01/10/19 00:00 Last Admin: 01/05/19 11:14 Dose: 30 mg Nicotine (Nicoderm) 1 patch TOP DAILY [facility] Last Admin: 01/05/19 09:58 Dose: Not Given Ondansetron HCl (Zofran Inj) 4 mg IVP Q6HR PRN PRN Reason: Nausea / Vomiting Multivit/Folic Acid/Iron (Trinatal Rx 1) 1 tab PO DAILYWM [facility] Last Admin: 01/05/19 11:26 Dose: 1 tab Prochlorperazine Edisylate (Compazine Inj) 10 mg IVP Q6HR PRN PRN Reason: Nausea / Vomiting Saccharomyces Boulardii (Florastor) 250 mg PO BIDWM [facility] Last Admin: 01/05/19 11:26 Dose: 250 mg Senna (Senokot) 17.2 mg PO Q12H PRN PRN Reason: Constipation Sodium Chloride (Normal Saline Flush 0.9%) 10 ml IVP PRN PRN PRN Reason: NEEDED PER PROVIDER ORDERS Last Admin: 01/04/19 21:53 Dose: 10 ml Sodium Chloride (Normal Saline Flush 0.9%) 10 ml IVP 0100,0900,1700 [facility] Last Admin: 01/05/19 07:58 Dose: 10 ml Thiamine HCl (Vitamin B-1) 100 mg PO DAILY [facility] Last Admin: 01/05/19 11:26 Dose: 100 mg Lisinopril 40 mg PO DAILY 06/15/17 Objective - Vital Signs/Intake & Output Reviewed Vital Signs: Yes Vital Signs: Vital Signs x48h Temp Pulse Pulse Resp BP BP Pulse Ox 01/05/19 10:48 36.4 C L 82 18 162/88 H 98 01/05/19 10:00 75 18 164/100 H 100 01/05/19 09:49 37.2 C 74 16 157/98 H 97 01/05/19 09:35 37 C 77 14 153/90 H 99 01/05/19 09:30 37 C 77 14 153/96 H 99 01/05/19 09:25 37 C 83 14 154/92 H 100 01/05/19 09:20 37 C 79 12 144/90 H 100 01/05/19 09:15 37.6 C H 71 12 147/96 H 99 01/05/19 09:10 37.6 C H 73 12 147/96 H 99 01/05/19 07:21 36.6 C 75 18 154/81 H 98 01/05/19 06:12 69 146/88 H Intake & Output: Intake & Output 01/02/19 01/03/19 01/04/19 01/05/19 23:59 23:59 23:59 23:59 Intake Total 4491.667 4140 5403.833 462.5 Output Total 200 Balance 4491.667 3940 5403.833 462.5 - Objective General Appearance: positive: No acute distress, Alert Eyes Bilateral: positive: PERRL, EOMI Neck: positive: No JVD. negative: Stiff neck, Carotid bruit Respiratory: positive: Chest non-tender. negative: Wheezes, Rales, Rhonchi Cardiovascular: positive: Regular rate & rhythm, No murmur. negative: Gallop/S4, Friction rub Abdomen: positive: Non-tender, No organomegaly, Nml bowel sounds, No distention Skin: positive: Other (multiple small scars on chest wall, abd wall from old and healed excoriations) Extremities: positive: Other (the right forearm skin and muscles are all soft, and no longer with induration/firmness. Hand is still with swelling but much smaller than yesterday. Still looked like a catcher's gauri yesterday and today can start to see tendon definition. He passively flexes his fingers and wrist today.) Neurologic/Psychiatric: positive: Oriented x3, CN's nml (2-12), Motor nml - Lab Results Fish Bones: 01/04/19 05:20 01/04/19 05:20 Other Labs: Lab Results x24hrs 01/05/19 01/05/19 01/05/19 Range/Units 10:15 05:00 05:00 ESR 78 H (0-20) mm/Hr C-Reactive Protein 12.7 H (0-1.0) mg/dL Last Dose Date UNK Last Dose Time UNK Vancomycin Trough 10.5 (10.0-20.0) ug/mL 01/04/19 01/04/19 Range/Units 05:20 05:20 ESR 57 H (0-20) mm/Hr C-Reactive Protein 19.0 H (0-1.0) mg/dL Last Dose Date Last Dose Time Vancomycin Trough (10.0-20.0) ug/mL ABX Reporting Has patient been on IV antibiotics over the past 48 hours?: Yes Sepsis Event Note (H) - Evaluation Current Stage of Sepsis: Resolved Possible source of Sepsis: positive: Skin/soft tissue - Sepsis Criteria Sepsis Criteria: Recorded Heart Rate greater than 90 bpm, WBC count greater than 12,000 or less than 4000 Assessment/Plan - Problem List (1) Right forearm cellulitis Impression: This is the source of his sepsis; the sepsis has resolved. On admission, it was a nonpurulent cellulitis but there was extensive edema, pain and bullae over the dorsum of the right hand. His was and has remained neurovascularly intact altho ugh he does report some numbness in his finger tips. On admission, ESR 72 and CRP 27 elevated. Normal CK, AST is only minimally elevated. Given the progression of his edema and pain, needed evaluation for nec fasc. LRINEC score is 3 but CRP is pending. Receiving Cefazolin in the ER. Right arm CT compared to duplex and has severe SQ edema without soft tissue gas. Large fluid loculations surrounding the extensor tendons posteriorly at level of carpus. Small IM fluid collecitons within the instrinsic musccles of the hand palm to the 2nd -4th MCP measuring up to 17x5 mm. Additional deep space edema/loculated fluid between the distal radius and ulna [id number] mm. This was discussed with orthopedic surgery on admit and Dr. Padron saw the patient. 01/03, since he is not better overnight, went to the OR but checked an US first and no discrete abcess seen. In the OR serosanguinous fluid along severel planes of tissue in the ventral wrist slice and palm slice but no abcess. hand shrunk and improved with just that. Wound culture from 01/03 growing out Group G, betahemolytic strep (most likely contaminant) ESR 78 so not better but CRP is down to 12 Taken back to the OR today and he is improving on direct visual of wounds. - Expanded abx coverage with Clindamycin, Zosyn and Vancomycin IV given concern for possible nec fasc, Day #4 but since it is not nec fasc, I will stop Clinda. If he has no fever tomorrow, I may stop vancomycin since no MRSA on culture - Follow CRP daily and it is going down - Neurovascular checks being done, and I saw him 3 times 01/02 with no change in exam from the morning and over the course of the day. After 01/03 look in the OR noticeable decrease in hand swelling. He now has his hand up in sling. - Blood cultures negative (3) Hyponatremia Conclusion/Plan: Likely hypovolemic hyponatremia. Sodium 132>133>136>138 with IV hydration. stop IVF (4) Hypokalemia Conclusion/Plan: K is 3.3 on admission>4.0 on oral replacement. continue to follow. Will replace orally. (5) Alcohol use Conclusion/Plan: Drinks a 6 pack of beer daily but has decreased his consumption over last few days. Will monitor for alcohol withdrawal. So far BP and pulse stable. On vitamins, thiamine. (6) tobacco abuse Nicotine patch requested by patient and ordered. (7) Amphetamine abuse Drug screen positive. He did have a cold over a week ago and had to take OTC meds, so may be from that but he also states he does do speed and last use last week. Advised on stopping that.
[2019-01-05] MEDS: VANCOMYCIN INJ 1.75 GM in SODIUM CHLORIDE 0.9% 500 ML IV SCH (12:34)
[2019-01-05] MEDS ORDERED: SODIUM CHLORIDE FLUSH 0.9% 10 ML SYRINGE IVP SCH (17:00)
[2019-01-05] MEDS ORDERED: oxyCODONE 5 MG TABLET PO PRN (19:05)
[2019-01-05] MEDS: DOCUSATE SODIUM 100 MG CAPSULE PO PRN (19:53)
[2019-01-05] MEDS: SENNA 8.6 MG TABLET PO PRN (19:53)
[2019-01-05] MEDS ORDERED: oxyCODONE 5 MG TABLET PO STA (22:07)
[2019-01-06] MEDS: VANCOMYCIN INJ 1.75 GM in SODIUM CHLORIDE 0.9% 500 ML IV SCH (00:03)
[2019-01-06] MEDS: KETOROLAC 30 MG/ML VIAL IVP SCH ×4 (00:14→17:33)
[2019-01-06] MEDS: oxyCODONE 5 MG TABLET PO PRN ×6 (00:17→20:13)
[2019-01-06] MEDS: ACETAMINOPHEN 325 MG TABLET PO SCH ×6 (00:18→20:13)
[2019-01-06] MEDS: SODIUM CHLORIDE FLUSH 0.9% 10 ML SYRINGE IVP SCH ×3 (00:19→16:52)
[2019-01-06] MEDS: PIPERACILLIN/TAZOBACTAM 3.375 GM in SODIUM CHLORIDE 0.9% MINIBAG 100 ML IV SCH ×2 (01:27→08:55)
[2019-01-06] MEDS: SODIUM CHLORIDE 0.9% 1,000 ML IV SCH ×3 (01:35→20:18)
[2019-01-06] MEDS: SODIUM CHLORIDE FLUSH 0.9% 10 ML SYRINGE IVP PRN ×4 (02:23→21:05)
[2019-01-06 05:55] LABS: BASOPHILS % (AUTO) 0.4 %; EOSINOPHILS % (AUTO) 0.9 %; HGB - HEMOGLOBIN 10.1 g/dL (14.0-18.0); LYMPHOCYTES % (AUTO) 15.3 %; MEAN CORPUSCULAR HGB CONC 31.9 g/dL (32.0-36.0); MEAN CORPUSCULAR VOLUME 87.8 fL (80.0-94.0); MEAN PLATELET VOLUME 9.4 fL (7.4-11.4); MONOCYTES % (AUTO) 7.4 %; NEUTROPHILS % (AUTO) 69.2 %; PLT - PLATELET COUNT 215 10^3/uL (130-450); RED BLOOD COUNT 3.61 10^6/uL (4.70-6.10); RED CELL DISTRIBUTION WIDTH 15.9 % (12.0-15.0); WHITE BLOOD COUNT 11.1 x10^3/uL (4.8-10.8)
[2019-01-06 06:06] LABS: ABNORMAL LYMPHS % (MANUAL) 0 %; BAND NEUTROPHILS % (MANUAL) 0 %
[2019-01-06 06:15] LABS: CALCIUM 8.2 mg/dL (8.5-10.3); CREATININE 0.6 mg/dL (0.6-1.2); CRP - C-REACTIVE PROTEIN 7.2 mg/dL (0-1.0)
[2019-01-06 06:38] LABS: EOSINOPHILS # (MANUAL) 0.1 10^3/uL (0-0.7); LYMPHOCYTES # (MANUAL) 1.2 10^3/uL (1.5-3.5); LYMPHOCYTES % (MANUAL) 11 %; MONOCYTES # (MANUAL) 0.4 10^3/uL (0.0-1.0); MYELOCYTES % (MANUAL) 2 %
[2019-01-06 06:39] LABS: DIFFERENTIAL COMMENT MANUAL DIFFERENTIAL; PLATELET ESTIMATE, MANUAL NORMAL (130-450,000) (NORMAL); PLATELET MORPHOLOGY NORMAL APPEARANCE (NORMAL); RBC MORPHOLOGY (MULTIPLE) NORMAL APPEARANCE (NORMAL)
[2019-01-06] MEDS: THIAMINE 100 MG TABLET PO SCH (08:55)
[2019-01-06] MEDS: SACCHAROMYCES BOULARDII 250 MG CAPSULE PO SCH ×2 (08:55→16:52)
[2019-01-06] MEDS: PRENATAL VITAMIN TABLET PO SCH (08:55)
[2019-01-06] MEDS: NICOTINE 14 MG PATCH TOP SCH (08:55)
[2019-01-06] MEDS: HEPARIN 5,000 UNIT/ML VIAL SUBQ SCH ×2 (08:56→20:11)
--- NOTE | 2019-01-06 10:32 | PROVIDER PROGRESS NOTE ---
Subjective - Prog Note Date Prog Note Date: 01/06/19 Prog Note Time: 10:22 - Subjective Pt reports feeling: Improved Subjective: pain is controlled with oral meds no fever. Current Medications - Current Medications Current Medications: Active Medications Acetaminophen (Tylenol) 650 mg PO Q4HR [facility] Last Admin: 01/06/19 08:54 Dose: 650 mg Acetaminophen (Tylenol) 650 - 975 mg PO Q4HR PRN PRN Reason: PAIN Calcium Carbonate/Glycine (Tums) 500 mg PO BID PRN PRN Reason: Heartburn Last Admin: 01/05/19 20:01 Dose: 500 mg Docusate Sodium (Colace 100mg Capsule) 100 mg PO BID PRN PRN Reason: Constipation Last Admin: 01/05/19 19:53 Dose: 100 mg Heparin Sodium (Porcine) () 5,000 unit SUBQ BID [facility] Last Admin: 01/06/19 08:56 Dose: 5,000 unit Sodium Chloride (Normal Saline 0.9%) 1,000 mls @ 100 mls/hr IV .Q10H [facility] Last Admin: 01/06/19 01:35 Dose: 100 mls/hr Ketorolac Tromethamine (Toradol Inj (30mg)) 30 mg IVP Q6HR [facility] Stop: 01/10/19 00:00 Last Admin: 01/06/19 05:01 Dose: 30 mg Nicotine (Nicoderm) 1 patch TOP DAILY [facility] Last Admin: 01/06/19 08:55 Dose: Not Given Ondansetron HCl (Zofran Inj) 4 mg IVP Q6HR PRN PRN Reason: Nausea / Vomiting Oxycodone HCl (Roxicodone) 10 mg PO Q4HR PRN PRN Reason: PAIN Last Admin: 01/06/19 08:54 Dose: 10 mg Penicillin V Potassium (Penicillin Vk) 500 mg PO Q6HR [facility] Multivit/Folic Acid/Iron (Trinatal Rx 1) 1 tab PO DAILYWM [facility] Last Admin: 01/06/19 08:55 Dose: 1 tab Prochlorperazine Edisylate (Compazine Inj) 10 mg IVP Q6HR PRN PRN Reason: Nausea / Vomiting Saccharomyces Boulardii (Florastor) 250 mg PO BIDWM [facility] Last Admin: 01/06/19 08:55 Dose: 250 mg Senna (Senokot) 17.2 mg PO Q12H PRN PRN Reason: Constipation Last Admin: 01/05/19 19:53 Dose: 17.2 mg Sodium Chloride (Normal Saline Flush 0.9%) 10 ml IVP PRN PRN PRN Reason: NEEDED PER PROVIDER ORDERS Last Admin: 01/06/19 02:23 Dose: 10 ml Sodium Chloride (Normal Saline Flush 0.9%) 10 ml IVP 0100,0900,1700 [facility] Last Admin: 01/06/19 08:55 Dose: 10 ml Thiamine HCl (Vitamin B-1) 100 mg PO DAILY [facility] Last Admin: 01/06/19 08:55 Dose: 100 mg Lisinopril 40 mg PO DAILY 06/15/17 Objective - Vital Signs/Intake & Output Reviewed Vital Signs: Yes Vital Signs: Vital Signs x48h Temp Pulse Resp BP Pulse Ox 01/06/19 07:30 36.5 C 65 16 152/81 H 99 01/06/19 05:00 36.9 C 58 L 16 161/89 H 98 Intake & Output: Intake & Output 01/03/19 01/04/19 01/05/19 01/06/19 23:59 23:59 23:59 23:59 Intake Total 4140 5403.833 3370.833 671.667 Output Total 200 700 Balance 3940 5403.833 2670.833 671.667 - Objective General Appearance: positive: Alert Eyes Bilateral: positive: PERRL Neck: positive: No JVD. negative: Stiff neck, Carotid bruit Respiratory: positive: Chest non-tender. negative: Wheezes, Rales, Rhonchi Cardiovascular: positive: Regular rate & rhythm. negative: Systolic murmur, Gallop/S4, Friction rub Abdomen: positive: Non-tender, No organomegaly, Nml bowel sounds, No distention Skin: positive: Other (redness of right forearm almost all gone. still w edema and redness of entire right hand, drains in place. But edema substantially improved. Redness also much reduced. able to passively flex MCP and DIP and wrist till hurts to actively flex.) Neurologic/Psychiatric: positive: Oriented x3, CN's nml (2-12), Motor nml - Lab Results Fish Bones: 01/06/19 05:04 01/06/19 05:04 Other Labs: Lab Results x24hrs 01/06/19 01/06/19 01/06/19 Range/Units 05:04 05:04 05:04 WBC 11.1 H (4.8-10.8) x10^3/uL RBC 3.61 L (4.70-6.10) 10^6/uL Hgb 10.1 L (14.0-18.0) g/dL Hct 31.7 L (42.0-52.0) % MCV 87.8 (80.0-94.0) fL MCH 28.0 (27.0-31.0) pg MCHC 31.9 L (32.0-36.0) g/dL RDW 15.9 H (12.0-15.0) % Plt Count 215 (130-450) 10^3/uL MPV 9.4 (7.4-11.4) fL Neut # (Auto) Not Reportable Lymph # (Auto) Not Reportable [place] # (Auto) Not Reportable Eos # (Auto) Not Reportable Baso # (Auto) Not Reportable Absolute Nucleated RBC Not Reportable Total Counted 100 Band Neuts % (Manual) 0 (0 - 10) % Abnorm Lymph % (Manual) 0 % Myelocytes % 2 H ( - 0) % Nucleated RBC % Not Reportable Neutrophils # (Manual) 9.1 H (1.5-6.6) 10^3/uL Lymphocytes # (Manual) 1.2 L (1.5-3.5) 10^3/uL Monocytes # (Manual) 0.4 (0.0-1.0) 10^3/uL Eosinophils # (Manual) 0.1 (0-0.7) 10^3/uL Basophils # (Manual) 0.0 (0-0.1) 10^3/uL Differential Comment MANUAL DIFFERENTIAL WBC Morphology NORMAL APPEARANCE (NORMAL) Platelet Estimate NORMAL (130-450,000) (NORMAL) Platelet Morphology NORMAL APPEARANCE (NORMAL) RBC Morph Micro Appear NORMAL APPEARANCE (NORMAL) ESR 68 H (0-20) mm/Hr Sodium 137 (135-145) mmol/L Potassium 4.3 (3.5-5.0) mmol/L Chloride 107 (101-111) mmol/L Carbon Dioxide 22 (21-32) mmol/L Anion Gap 8.0 (6-13) BUN 15 (6-20) mg/dL Creatinine 0.6 (0.6-1.2) mg/dL Estimated GFR (MDRD) 143 (>89) Glucose 144 H (70-100) mg/dL Calcium 8.2 L (8.5-10.3) mg/dL C-Reactive Protein 7.2 H (0-1.0) mg/dL Last Dose Date Last Dose Time Vancomycin Trough (10.0-20.0) ug/mL 01/05/19 Range/Units 10:15 WBC (4.8-10.8) x10^3/uL RBC (4.70-6.10) 10^6/uL Hgb (14.0-18.0) g/dL Hct (42.0-52.0) % MCV (80.0-94.0) fL MCH (27.0-31.0) pg MCHC (32.0-36.0) g/dL RDW (12.0-15.0) % Plt Count (130-450) 10^3/uL MPV (7.4-11.4) fL Neut # (Auto) Lymph # (Auto) [place] # (Auto) Eos # (Auto) Baso # (Auto) Absolute Nucleated RBC Total Counted Band Neuts % (Manual) (0 - 10) % Abnorm Lymph % (Manual) % Myelocytes % ( - 0) % Nucleated RBC % Neutrophils # (Manual) (1.5-6.6) 10^3/uL Lymphocytes # (Manual) (1.5-3.5) 10^3/uL Monocytes # (Manual) (0.0-1.0) 10^3/uL Eosinophils # (Manual) (0-0.7) 10^3/uL Basophils # (Manual) (0-0.1) 10^3/uL Differential Comment WBC Morphology (NORMAL) Platelet Estimate (NORMAL) Platelet Morphology (NORMAL) RBC Morph Micro Appear (NORMAL) ESR (0-20) mm/Hr Sodium (135-145) mmol/L Potassium (3.5-5.0) mmol/L Chloride (101-111) mmol/L Carbon Dioxide (21-32) mmol/L Anion Gap (6-13) BUN (6-20) mg/dL Creatinine (0.6-1.2) mg/dL Estimated GFR (MDRD) (>89) Glucose (70-100) mg/dL Calcium (8.5-10.3) mg/dL C-Reactive Protein (0-1.0) mg/dL Last Dose Date UNK Last Dose Time UNK Vancomycin Trough 10.5 (10.0-20.0) ug/mL ABX Reporting Has patient been on IV antibiotics over the past 48 hours?: Yes Sepsis Event Note (H) - Evaluation Current Stage of Sepsis: Resolved Possible source of Sepsis: positive: Skin/soft tissue - Sepsis Criteria Sepsis Criteria: Recorded Heart Rate greater than 90 bpm, WBC count greater than 12,000 or less than 4000 Assessment/Plan - Problem List (1) Infectious fasciitis Impression: Right hand and right forearm. This is the source of his sepsis; the sepsis has resolved. We initially labeled it a cellulitis but this infection has involved skin and fascia as seen in OR reports. On admission, it was a nonpurulent cellulitis but there was extensive edema, pain and bullae over the dorsum of the right hand. His was and has remained neurovascularly intact although he does report some numbness in his finger tips. On admission, ESR 72 and CRP 27 elevated. Normal CK, AST is only minimally elevated. Given the progression of his edema and pain, needed evaluation for nec fasc. LRINEC score is 3 but CRP is pending. Receiving Cefazolin in the ER. Right arm CT compared to duplex and has severe SQ edema without soft tissue gas. Large fluid loculations surrounding the extensor tendons posteriorly at level of carpus. Small IM fluid collecitons within the instrinsic musccles of the hand palm to the 2nd -4th MCP measuring up to 17x5 mm. Additional deep space edema/loculated fluid between the distal radius and ulna [id number] mm. This was discussed with orthopedic surgery on admit and Dr. Padron saw the patient. 01/03, since he is not better overnight, went to the OR but checked an US first and no discrete abcess seen. In the OR serosanguinous fluid along severel planes of tissue in the ventral wrist slice and palm slice but no abcess. hand shrunk and improved with just that. Blood cultures from admission have been negative. Wound culture from 01/03 growing out Group G, betahemolytic strep (most likely contaminant) ESR 78>68 CRP is down to 12>7.2 Taken back to the OR 10/ and he is improving on direct visualization of wounds. - Expanded abx coverage with Clindamycin, Zosyn and Vancomycin IV given concern for possible nec fasc, Day #5 but since it is not nec fasc, I stopped Clinda 10/ which was Day#4 and no fever. It's time to deescalate even further since ortho tentatively plans for discharge on 01/08. Drains will come out that day. In reviewing [place] soft tissue infections presume from Strep can be treated with oral PCN. As such, will change to PCN today and watch for fever today and tomorrow before dc on 01/08 - Follow CRP daily and it is going down (3) Hyponatremia Conclusion/Plan: Likely hypovolemic hyponatremia. Sodium 132>133>136>138>137 with IV hydration. stop IVF (4) Hypokalemia Conclusion/Plan: K is 3.3 on admission>4.0 on oral replacement. continue to follow. Will replace orally. (5) Alcohol use Conclusion/Plan: Drinks a 6 pack of beer daily but has decreased his consumption over last few days. Will monitor for alcohol withdrawal. So far BP and pulse stable. On vitamins, thiamine. (6) tobacco abuse Nicotine patch requested by patient and ordered. (7) Amphetamine abuse Drug screen positive. He did have a cold over a week ago and had to take OTC meds, so may be from that but he also states he does do speed and last use last week. Advised on stopping that. (8) Hypertension. Resume home lisinpril dose
[2019-01-06] MEDS: LISINOPRIL 20 MG TABLET PO SCH (11:12)
[2019-01-06] MEDS: PENICILLIN VK 250 MG TABLET PO SCH ×2 (11:12→17:33)
[2019-01-06] MEDS: POLYETHYLENE GLYCOL 3350 17 GM PACKET PO SCH (17:34)
--- NOTE | 2019-01-06 20:40 | PROVIDER PROGRESS NOTE ---
Subjective - Prog Note Date Prog Note Date: 01/06/19 - Subjective Pt reports feeling: Improved Subjective: Patient says he is feeling a bit better with decreased swelling and increased mobility of his digits offers no other setbacks or new complaints does mention some soreness but notes improvement Objective - Vital Signs/Intake & Output Vital Signs: Vital Signs x48h Temp Pulse Resp BP Pulse Ox 01/06/19 20:02 36.9 C 73 16 175/95 H 98 01/06/19 15:31 36.7 C 67 18 162/86 H 99 01/06/19 13:06 71 150/82 H Intake & Output: Intake & Output 01/03/19 01/04/19 01/05/19 01/06/19 23:59 23:59 23:59 23:59 Intake Total 4140 5403.833 3370.833 3551.667 Output Total 200 700 Balance 3940 5403.833 2670.833 3551.667 - Lab Results Fish Bones: 01/06/19 05:04 01/06/19 05:04 Other Labs: Lab Results x24hrs 01/06/19 01/06/19 01/06/19 Range/Units 05:04 05:04 05:04 WBC 11.1 H (4.8-10.8) x10^3/uL RBC 3.61 L (4.70-6.10) 10^6/uL Hgb 10.1 L (14.0-18.0) g/dL Hct 31.7 L (42.0-52.0) % MCV 87.8 (80.0-94.0) fL MCH 28.0 (27.0-31.0) pg MCHC 31.9 L (32.0-36.0) g/dL RDW 15.9 H (12.0-15.0) % Plt Count 215 (130-450) 10^3/uL MPV 9.4 (7.4-11.4) fL Neut # (Auto) Not Reportable Lymph # (Auto) Not Reportable [place] # (Auto) Not Reportable Eos # (Auto) Not Reportable Baso # (Auto) Not Reportable Absolute Nucleated RBC Not Reportable Total Counted 100 Band Neuts % (Manual) 0 (0 - 10) % Abnorm Lymph % (Manual) 0 % Myelocytes % 2 H ( - 0) % Nucleated RBC % Not Reportable Neutrophils # (Manual) 9.1 H (1.5-6.6) 10^3/uL Lymphocytes # (Manual) 1.2 L (1.5-3.5) 10^3/uL Monocytes # (Manual) 0.4 (0.0-1.0) 10^3/uL Eosinophils # (Manual) 0.1 (0-0.7) 10^3/uL Basophils # (Manual) 0.0 (0-0.1) 10^3/uL Differential Comment MANUAL DIFFERENTIAL WBC Morphology NORMAL APPEARANCE (NORMAL) Platelet Estimate NORMAL (130-450,000) (NORMAL) Platelet Morphology NORMAL APPEARANCE (NORMAL) RBC Morph Micro Appear NORMAL APPEARANCE (NORMAL) ESR 68 H (0-20) mm/Hr Sodium 137 (135-145) mmol/L Potassium 4.3 (3.5-5.0) mmol/L Chloride 107 (101-111) mmol/L Carbon Dioxide 22 (21-32) mmol/L Anion Gap 8.0 (6-13) BUN 15 (6-20) mg/dL Creatinine 0.6 (0.6-1.2) mg/dL Estimated GFR (MDRD) 143 (>89) Glucose 144 H (70-100) mg/dL Calcium 8.2 L (8.5-10.3) mg/dL C-Reactive Protein 7.2 H (0-1.0) mg/dL - Other Results/Comments Other Results/Comments: Patient able to initiate radial median ulnar motor function he reports sensation distally all digits active assisted extension is near full all digits active assisted flexion is limited secondary to splinting. Splint clean dry and intact in place right upper extremity elevated using IV pole and stockinette. No erythema of digits. Comfortable range of motion of digits within the mid range though with reported discomfort at extremes only Sepsis Event Note (H) - Evaluation Current Stage of Sepsis: Resolved Possible source of Sepsis: positive: Skin/soft tissue - Sepsis Criteria Sepsis Criteria: Recorded Heart Rate greater than 90 bpm, WBC count greater than 12,000 or less than 4000 Assessment/Plan - Problem List (1) Right forearm cellulitis Impression: Patient status post multiple I&D right hand per Dr. Padron Patient subjectively and objectively improving. Continued IV antibiotics elevation and dressing. Tomorrow per Dr. Padron we will remove Melissa drains. Continue current management otherwise Patient questions answered he verbalized understanding and satisfaction with the above
[2019-01-06] MEDS: HYDROmorphone 2 MG/ML VIAL IVP PRN (21:05)
[2019-01-07] MEDS: HYDROmorphone 2 MG/ML VIAL IVP PRN ×10 (00:05→22:03)
[2019-01-07] MEDS: SODIUM CHLORIDE FLUSH 0.9% 10 ML SYRINGE IVP SCH ×3 (00:06→15:31)
[2019-01-07] MEDS: ACETAMINOPHEN 325 MG TABLET PO SCH ×6 (00:30→22:01)
[2019-01-07] MEDS: PENICILLIN VK 250 MG TABLET PO SCH ×4 (00:31→17:43)
[2019-01-07] MEDS: SODIUM CHLORIDE FLUSH 0.9% 10 ML SYRINGE IVP PRN (00:32)
[2019-01-07] MEDS: oxyCODONE 5 MG TABLET PO PRN ×6 (01:44→22:02)
[2019-01-07 05:18] LABS: BASOPHILS % (AUTO) 0.6 %; EOSINOPHILS % (AUTO) 1.3 %; HGB - HEMOGLOBIN 11.1 g/dL (14.0-18.0); LYMPHOCYTES % (AUTO) 17.3 %; MEAN CORPUSCULAR HEMOGLOBIN 27.7 pg (27.0-31.0); MEAN CORPUSCULAR HGB CONC 31.9 g/dL (32.0-36.0); MEAN CORPUSCULAR VOLUME 86.8 fL (80.0-94.0); MEAN PLATELET VOLUME 9.2 fL (7.4-11.4); MONOCYTES % (AUTO) 6.4 %; NEUTROPHILS % (AUTO) 65.8 %; PLT - PLATELET COUNT 207 10^3/uL (130-450); RED BLOOD COUNT 4.01 10^6/uL (4.70-6.10); RED CELL DISTRIBUTION WIDTH 15.8 % (12.0-15.0); WHITE BLOOD COUNT 13.5 x10^3/uL (4.8-10.8)
[2019-01-07 05:21] LABS: ABNORMAL LYMPHS % (MANUAL) 0 %
[2019-01-07 05:39] LABS: BAND NEUTROPHILS % (MANUAL) 1 %; EOSINOPHILS # (MANUAL) 0.1 10^3/uL (0-0.7); LYMPHOCYTES # (MANUAL) 2.7 10^3/uL (1.5-3.5); LYMPHOCYTES % (MANUAL) 20 %; METAMYELOCYTES % (MANUAL) 1 %; MONOCYTES # (MANUAL) 0.3 10^3/uL (0.0-1.0); MYELOCYTES % (MANUAL) 2 %; PLATELET ESTIMATE, MANUAL NORMAL (130-450,000) (NORMAL); PLATELET MORPHOLOGY NORMAL APPEARANCE (NORMAL); RBC MORPHOLOGY (MULTIPLE) NORMAL APPEARANCE (NORMAL)
[2019-01-07 05:40] LABS: CALCIUM 8.3 mg/dL (8.5-10.3); CREATININE 0.6 mg/dL (0.6-1.2); CRP - C-REACTIVE PROTEIN 5.1 mg/dL (0-1.0); DIFFERENTIAL COMMENT MANUAL DIFFERENTIAL
[2019-01-07] MEDS: SODIUM CHLORIDE 0.9% 1,000 ML IV SCH ×3 (06:34→22:05)
[2019-01-07] MEDS: POLYETHYLENE GLYCOL 3350 17 GM PACKET PO SCH (08:54)
[2019-01-07] MEDS: LISINOPRIL 20 MG TABLET PO SCH (08:54)
[2019-01-07] MEDS: SENNA 8.6 MG TABLET PO PRN ×2 (08:55→22:01)
[2019-01-07] MEDS: DOCUSATE SODIUM 100 MG CAPSULE PO PRN ×2 (08:55→22:02)
[2019-01-07] MEDS: PRENATAL VITAMIN TABLET PO SCH (08:56)
[2019-01-07] MEDS: THIAMINE 100 MG TABLET PO SCH (08:56)
[2019-01-07] MEDS: HEPARIN 5,000 UNIT/ML VIAL SUBQ SCH ×2 (08:56→22:03)
[2019-01-07] MEDS: SACCHAROMYCES BOULARDII 250 MG CAPSULE PO SCH ×2 (08:56→17:43)
[2019-01-07] MEDS: NICOTINE 14 MG PATCH TOP SCH (09:04)
--- NOTE | 2019-01-07 10:16 | PROVIDER PROGRESS NOTE ---
Subjective - Prog Note Date Prog Note Date: 01/07/19 Prog Note Time: 08:00 - Subjective Pt reports feeling: Improved (Patient says is been doing his finger exercises as advised yesterday. He is notes overall improvement.) Objective - Vital Signs/Intake & Output Vital Signs: Vital Signs x48h Temp Pulse Resp BP Pulse Ox 01/07/19 07:24 36.5 C 68 16 148/90 H 96 01/07/19 03:45 36.8 C 98 16 154/96 H 98 Intake & Output: Intake & Output 01/04/19 01/05/19 01/06/19 01/07/19 23:59 23:59 23:59 23:59 Intake Total 5403.833 3370.833 3787.667 1250 Output Total 700 Balance 5403.833 2670.833 3787.667 1250 - Lab Results Fish Bones: 01/07/19 04:59 01/07/19 04:59 Other Labs: Lab Results x24hrs 01/07/19 01/07/19 01/07/19 Range/Units 07:38 04:59 04:59 WBC 13.5 H (4.8-10.8) x10^3/uL RBC 4.01 L (4.70-6.10) 10^6/uL Hgb 11.1 L (14.0-18.0) g/dL Hct 34.8 L (42.0-52.0) % MCV 86.8 (80.0-94.0) fL MCH 27.7 (27.0-31.0) pg MCHC 31.9 L (32.0-36.0) g/dL RDW 15.8 H (12.0-15.0) % Plt Count 207 (130-450) 10^3/uL MPV 9.2 (7.4-11.4) fL Neut # (Auto) Not Reportable Lymph # (Auto) Not Reportable [place] # (Auto) Not Reportable Eos # (Auto) Not Reportable Baso # (Auto) Not Reportable Absolute Nucleated RBC Not Reportable Total Counted 100 Band Neuts % (Manual) 1 (0 - 10) % Abnorm Lymph % (Manual) 0 % Metamyelocytes % 1 H ( - 0) % Myelocytes % 2 H ( - 0) % Nucleated RBC % Not Reportable Neutrophils # (Manual) 10.0 H (1.5-6.6) 10^3/uL Lymphocytes # (Manual) 2.7 (1.5-3.5) 10^3/uL Monocytes # (Manual) 0.3 (0.0-1.0) 10^3/uL Eosinophils # (Manual) 0.1 (0-0.7) 10^3/uL Basophils # (Manual) 0.0 (0-0.1) 10^3/uL Differential Comment MANUAL DIFFERENTIAL WBC Morphology NORMAL APPEARANCE (NORMAL) Platelet Estimate NORMAL (130-450,000) (NORMAL) Platelet Morphology NORMAL APPEARANCE (NORMAL) RBC Morph Micro Appear NORMAL APPEARANCE (NORMAL) ESR (0-20) mm/Hr Sodium 135 (135-145) mmol/L Potassium 4.2 (3.5-5.0) mmol/L Chloride 103 (101-111) mmol/L Carbon Dioxide 24 (21-32) mmol/L Anion Gap 8.0 (6-13) BUN 12 (6-20) mg/dL Creatinine 0.6 (0.6-1.2) mg/dL Estimated GFR (MDRD) 143 (>89) Glucose 124 H (70-100) mg/dL Lactic Acid 0.9 (0.5-2.2) mmol/L Calcium 8.3 L (8.5-10.3) mg/dL C-Reactive Protein 5.1 H (0-1.0) mg/dL 01/07/19 Range/Units 04:59 WBC (4.8-10.8) x10^3/uL RBC (4.70-6.10) 10^6/uL Hgb (14.0-18.0) g/dL Hct (42.0-52.0) % MCV (80.0-94.0) fL MCH (27.0-31.0) pg MCHC (32.0-36.0) g/dL RDW (12.0-15.0) % Plt Count (130-450) 10^3/uL MPV (7.4-11.4) fL Neut # (Auto) Lymph # (Auto) [place] # (Auto) Eos # (Auto) Baso # (Auto) Absolute Nucleated RBC Total Counted Band Neuts % (Manual) (0 - 10) % Abnorm Lymph % (Manual) % Metamyelocytes % ( - 0) % Myelocytes % ( - 0) % Nucleated RBC % Neutrophils # (Manual) (1.5-6.6) 10^3/uL Lymphocytes # (Manual) (1.5-3.5) 10^3/uL Monocytes # (Manual) (0.0-1.0) 10^3/uL Eosinophils # (Manual) (0-0.7) 10^3/uL Basophils # (Manual) (0-0.1) 10^3/uL Differential Comment WBC Morphology (NORMAL) Platelet Estimate (NORMAL) Platelet Morphology (NORMAL) RBC Morph Micro Appear (NORMAL) ESR 77 H (0-20) mm/Hr Sodium (135-145) mmol/L Potassium (3.5-5.0) mmol/L Chloride (101-111) mmol/L Carbon Dioxide (21-32) mmol/L Anion Gap (6-13) BUN (6-20) mg/dL Creatinine (0.6-1.2) mg/dL Estimated GFR (MDRD) (>89) Glucose (70-100) mg/dL Lactic Acid (0.5-2.2) mmol/L Calcium (8.5-10.3) mg/dL C-Reactive Protein (0-1.0) mg/dL - Other Results/Comments Other Results/Comments: Patient remains neurovascular unchanged distally right upper extremity. Dressing is changed with Sterile 4 x 4 and all Ford drains removed. Drains come out easily. Wounds show minimal sanguinous drainage. No purulence appreciated. There is no significant erythema appreciated. There are skin wrinkles of hand and distal forearm. No streaking appreciated. Active assisted extension of digits is full active assisted flexion of digits is near full within 1 to 2 cm of palm. Sepsis Event Note (H) - Evaluation Current Stage of Sepsis: Resolved Possible source of Sepsis: positive: Skin/soft tissue - Sepsis Criteria Sepsis Criteria: Recorded Heart Rate greater than 90 bpm, WBC count greater than 12,000 or less than 4000 Assessment/Plan - Problem List (1) Right forearm cellulitis Impression: Buck is a 48-year-old gentleman improving status post right upper extremity i nfection debridement irrigation by Dr. Padron. He has signs of improving with no evidence of purulence and no significant erythema, and with skin wrinkles. His drains were removed today and they came out easily. He is dressed with dry dressing and soft roll and Eloy wrap under aseptic conditions. He is advised on continued home exercises for active assisted flexion extension of his digits and these are reviewed with his significant other as well at the bedside. Appreciate hospitalist recommendations above regarding antibiotics. Will continue as such. If he continues to do well on current antibiotic regimen then would expect likely discharge tomorrow. Upon discharge she would have close o rthopedic follow-up with dressing changes. Expectation would be to follow-up in orthopedic clinic within 3 to 5 days or sooner should problems questions or worsening condition arise after discharge. Above reviewed with patient questions answered he verbalized agreement satisfaction the plan as outlined
--- NOTE | 2019-01-07 13:47 | PROVIDER PROGRESS NOTE ---
Subjective - Prog Note Date Prog Note Date: 01/07/19 - Subjective Pt reports feeling: Improved Subjective: pt report he felt some pain, and pressure released after his drainage tube was removed on today by orthopedics. he report overall he felt improved, swelling war reduced, erythema was reduced. pt also denies fever, chill. Orthopedics recommend pt may be d/c on tomorrow. Current Medications - Current Medications Current Medications: Active Medications Acetaminophen (Tylenol) 650 mg PO Q4HR [facility] Last Admin: 01/07/19 08:55 Dose: 650 mg Acetaminophen (Tylenol) 650 - 975 mg PO Q4HR PRN PRN Reason: PAIN Calcium Carbonate/Glycine (Tums) 500 mg PO BID PRN PRN Reason: Heartburn Last Admin: 01/05/19 20:01 Dose: 500 mg Docusate Sodium (Colace 100mg Capsule) 100 mg PO BID PRN PRN Reason: Constipation Last Admin: 01/07/19 08:55 Dose: 100 mg Heparin Sodium (Porcine) () 5,000 unit SUBQ BID [facility] Last Admin: 01/07/19 08:56 Dose: 5,000 unit Hydromorphone HCl (Dilaudid (Vial)) 2 mg IVP Q2H PRN PRN Reason: PAIN Last Admin: 01/07/19 11:04 Dose: 2 mg Sodium Chloride (Normal Saline 0.9%) 1,000 mls @ 100 mls/hr IV .Q10H [facility] Last Admin: 01/07/19 06:34 Dose: 100 mls/hr Lisinopril (Zestril) 40 mg PO DAILY [facility] Last Admin: 01/07/19 08:54 Dose: 40 mg Nicotine (Nicoderm) 1 patch TOP DAILY [facility] Last Admin: 01/07/19 09:04 Dose: Not Given Ondansetron HCl (Zofran Inj) 4 mg IVP Q6HR PRN PRN Reason: Nausea / Vomiting Oxycodone HCl (Roxicodone) 10 mg PO Q4HR PRN PRN Reason: PAIN Last Admin: 01/07/19 10:18 Dose: 10 mg Penicillin V Potassium (Penicillin Vk) 500 mg PO Q6HR [facility] Last Admin: 01/07/19 12:07 Dose: 500 mg Polyethylene Glycol (Miralax) 17 gm PO DAILY [facility] Last Admin: 01/07/19 08:54 Dose: 17 gm Multivit/Folic Acid/Iron (Trinatal Rx 1) 1 tab PO DAILYWM [facility] Last Admin: 01/07/19 08:56 Dose: 1 tab Prochlorperazine Edisylate (Compazine Inj) 10 mg IVP Q6HR PRN PRN Reason: Nausea / Vomiting Saccharomyces Boulardii (Florastor) 250 mg PO BIDWM [facility] Last Admin: 01/07/19 08:56 Dose: 250 mg Senna (Senokot) 17.2 mg PO Q12H PRN PRN Reason: Constipation Last Admin: 01/07/19 08:55 Dose: 17.2 mg Sodium Chloride (Normal Saline Flush 0.9%) 10 ml IVP PRN PRN PRN Reason: NEEDED PER PROVIDER ORDERS Last Admin: 01/07/19 00:32 Dose: 10 ml Sodium Chloride (Normal Saline Flush 0.9%) 10 ml IVP 0100,0900,1700 [facility] Last Admin: 01/07/19 10:16 Dose: Not Given Thiamine HCl (Vitamin B-1) 100 mg PO DAILY [facility] Last Admin: 01/07/19 08:56 Dose: 100 mg Lisinopril 40 mg PO DAILY 06/15/17 Objective - Vital Signs/Intake & Output Reviewed Vital Signs: Yes Vital Signs: Vital Signs x48h Temp Pulse Resp BP Pulse Ox 01/07/19 11:00 36.8 C 73 16 168/84 H 97 01/07/19 07:24 36.5 C 68 16 148/90 H 96 Intake & Output: Intake & Output 01/04/19 01/05/19 01/06/19 01/07/19 23:59 23:59 23:59 23:59 Intake Total 5403.833 3370.833 3787.667 1610 Output Total 700 Balance 5403.833 2670.833 3787.667 1610 - Objective General Appearance: positive: No acute distress, Alert. negative: Lethargic Eyes Bilateral: positive: Normal inspection, PERRL, No lid inflammation, Conjunctivae nml ENT: positive: ENT inspection nml, Pharynx nml, No signs of dehydration. negative: Purulent nasal drainage, Pharyngeal erythema, Oral lesions Neck: positive: Nml inspection, Thyroid nml, No JVD, Trachea midline. negative: Thyromegaly, Lymphadenopathy (R), Lymphadenopathy (L), Stiff neck, Swelling/bruising, Tracheal deviation Respiratory: positive: Chest non-tender, No respiratory distress, Breath sounds nml. negative: Wheezes, Rales, Rhonchi Cardiovascular: positive: Regular rate & rhythm, No murmur, No gallop. negative: Irregularly irregular, Extrasystoles, Tachycardia, Bradycardia, JVD present, Systolic murmur, Diastolic murmur Peripheral Pulses: 2+ Radial (R), 2+ Radial (L), 2+ Dorsalis pedis (R), 2+ Dorsalis pedis (L) Abdomen: positive: Non-tender, No organomegaly, Nml bowel sounds, No distention. negative: Tenderness, Guarding, Rebound Back: positive: Nml inspection. negative: CVA tenderness (R), CVA tenderness (L) Skin: positive: Warm, Dry, Skin rash. negative: Cyanosis, Diaphoresis, Pallor Extremities: positive: Other (five fingers of right arm have intact neurovasculr response.). negative: Calf tenderness, Joint swelling, Jose A's sign/cords Neurologic/Psychiatric: positive: Oriented x3, Sensation nml, Mood/affect nml. negative: Weakness, Sensory loss, Facial droop, Slurred/abnml speech, Depressed mood/affect - Lab Results Fish Bones: 01/07/19 04:59 01/07/19 04:59 Other Labs: Lab Results x24hrs 01/07/19 01/07/19 01/07/19 Range/Units 07:38 04:59 04:59 WBC 13.5 H (4.8-10.8) x10^3/uL RBC 4.01 L (4.70-6.10) 10^6/uL Hgb 11.1 L (14.0-18.0) g/dL Hct 34.8 L (42.0-52.0) % MCV 86.8 (80.0-94.0) fL MCH 27.7 (27.0-31.0) pg MCHC 31.9 L (32.0-36.0) g/dL RDW 15.8 H (12.0-15.0) % Plt Count 207 (130-450) 10^3/uL MPV 9.2 (7.4-11.4) fL Neut # (Auto) Not Reportable Lymph # (Auto) Not Reportable [place] # (Auto) Not Reportable Eos # (Auto) Not Reportable Baso # (Auto) Not Reportable Absolute Nucleated RBC Not Reportable Total Counted 100 Band Neuts % (Manual) 1 (0 - 10) % Abnorm Lymph % (Manual) 0 % Metamyelocytes % 1 H ( - 0) % Myelocytes % 2 H ( - 0) % Nucleated RBC % Not Reportable Neutrophils # (Manual) 10.0 H (1.5-6.6) 10^3/uL Lymphocytes # (Manual) 2.7 (1.5-3.5) 10^3/uL Monocytes # (Manual) 0.3 (0.0-1.0) 10^3/uL Eosinophils # (Manual) 0.1 (0-0.7) 10^3/uL Basophils # (Manual) 0.0 (0-0.1) 10^3/uL Differential Comment MANUAL DIFFERENTIAL WBC Morphology NORMAL APPEARANCE (NORMAL) Platelet Estimate NORMAL (130-450,000) (NORMAL) Platelet Morphology NORMAL APPEARANCE (NORMAL) RBC Morph Micro Appear NORMAL APPEARANCE (NORMAL) ESR (0-20) mm/Hr Sodium 135 (135-145) mmol/L Potassium 4.2 (3.5-5.0) mmol/L Chloride 103 (101-111) mmol/L Carbon Dioxide 24 (21-32) mmol/L Anion Gap 8.0 (6-13) BUN 12 (6-20) mg/dL Creatinine 0.6 (0.6-1.2) mg/dL Estimated GFR (MDRD) 143 (>89) Glucose 124 H (70-100) mg/dL Lactic Acid 0.9 (0.5-2.2) mmol/L Calcium 8.3 L (8.5-10.3) mg/dL C-Reactive Protein 5.1 H (0-1.0) mg/dL 01/07/19 Range/Units 04:59 WBC (4.8-10.8) x10^3/uL RBC (4.70-6.10) 10^6/uL Hgb (14.0-18.0) g/dL Hct (42.0-52.0) % MCV (80.0-94.0) fL MCH (27.0-31.0) pg MCHC (32.0-36.0) g/dL RDW (12.0-15.0) % Plt Count (130-450) 10^3/uL MPV (7.4-11.4) fL Neut # (Auto) Lymph # (Auto) [place] # (Auto) Eos # (Auto) Baso # (Auto) Absolute Nucleated RBC Total Counted Band Neuts % (Manual) (0 - 10) % Abnorm Lymph % (Manual) % Metamyelocytes % ( - 0) % Myelocytes % ( - 0) % Nucleated RBC % Neutrophils # (Manual) (1.5-6.6) 10^3/uL Lymphocytes # (Manual) (1.5-3.5) 10^3/uL Monocytes # (Manual) (0.0-1.0) 10^3/uL Eosinophils # (Manual) (0-0.7) 10^3/uL Basophils # (Manual) (0-0.1) 10^3/uL Differential Comment WBC Morphology (NORMAL) Platelet Estimate (NORMAL) Platelet Morphology (NORMAL) RBC Morph Micro Appear (NORMAL) ESR 77 H (0-20) mm/Hr Sodium (135-145) mmol/L Potassium (3.5-5.0) mmol/L Chloride (101-111) mmol/L Carbon Dioxide (21-32) mmol/L Anion Gap (6-13) BUN (6-20) mg/dL Creatinine (0.6-1.2) mg/dL Estimated GFR (MDRD) (>89) Glucose (70-100) mg/dL Lactic Acid (0.5-2.2) mmol/L Calcium (8.5-10.3) mg/dL C-Reactive Protein (0-1.0) mg/dL ABX Reporting Has patient been on IV antibiotics over the past 48 hours?: Yes Sepsis Event Note (H) - Evaluation Current Stage of Sepsis: Resolved Possible source of Sepsis: positive: Skin/soft tissue - Sepsis Criteria Sepsis Criteria: Recorded Heart Rate greater than 90 bpm, WBC count greater than 12,000 or less than 4000 Assessment/Plan - Problem List (1) Infectious fasciitis Impression: 01/07 pt's drainage tube is removed today by orthopedics. pt report his pain and pressure was reduced after removal of drainage tube. orthopedics did twice drainage for pt. pt's CRP is gradually reduced and lactic acid is reduced, but ESR and WBC is still elevated and abnormal. pt's antibiotics was switched to PO penicillin V. plan: continue followup orthopedics, orthopedics recommend pt may be d/c on tomorrow. consult with Wound care provider, will follow up continue PO Pencillin and recheck CBC continue rise right hand continue vital and lab monitor refer from Dr. Macario's progress report as the below. Right hand and right forearm. This is the source of his sepsis; the sepsis has r esolved. We initially labeled it a cellulitis but this infection has involved skin and fascia as seen in OR reports. On admission, it was a nonpurulent cellulitis but there was extensive edema, pain and bullae over the dorsum of the right hand. His was and has remained neurovascularly intact although he does report some numbness in his finger tips. On admission, ESR 72 and CRP 27 elevated. Normal CK, AST is only minimally elevated. Given the progression of his edema and pain, needed evaluation for nec fasc. LRINEC score is 3 but CRP is pending. Receiving Cefazolin in the ER. Right arm CT compared to duplex and has severe SQ edema without soft tissue gas. Large fluid loculations surrounding the extensor tendons posteriorly at level of carpus. Small IM fluid collecitons within the instrinsic musccles of the hand palm to the 2nd -4th MCP measuring up to 17x5 mm. Additional deep space edema/loculated fluid between the distal radius and ulna [id number] mm. This was discussed with orthopedic surgery on admit and Dr. Padron saw the patient. 01/03, since he is not better overnight, went to the OR but checked an US first and no discrete abcess seen. In the OR serosanguinous fluid along severel planes of tissue in the ventral wrist slice and palm slice but no abcess. hand shrunk and improved with just that. Blood cultures from admission have been negative. Wound culture from 01/03 growing out Group G, betahemolytic strep (most likely contaminant) ESR 78>68 CRP is down to 12>7.2 Taken back to the OR 01/05 and he is improving on direct visualization of wounds. - Expanded abx coverage with Clindamycin, Zosyn and Vancomycin IV given concern for possible nec fasc, Day #5 but since it is not nec fasc, I stopped Clinda 01/05 which was Day#4 and no fever. It's time to deescalate even further since ortho tentatively plans for discharge on 01/08. Drains will come out that day. In reviewing [place] soft tissue infections presume from Strep can be treated with oral PCN. As such, will change to PCN today and watch for fever today and tomorrow before dc on 01/08 - Follow CRP daily and it is going down (2) Hyponatremia Conclusion/Plan: resolved (3) Hypokalemia Conclusion/Plan: resolved (4) Alcohol use Conclusion/Plan: 01/07 continue vitamins, thiamine. Drinks a 6 pack of beer daily but has decreased his consumption over last few days. Will monitor for alcohol withdrawal. So far BP and pulse stable. On vitamins, thiamine. (5) tobacco abuse Nicotine patch requested by patient and ordered. (6) Amphetamine abuse 01/07 advise pt stop this abuse Drug screen positive. He did have a cold over a week ago and had to take OTC meds, so may be from that but he also states he does do speed and last use last week. Advised on stopping that. (7) Hypertension. 01/07 slight elevated, will recheck again, and followup continue Lisinopril. Resume home lisinpril dose
[2019-01-07 16:19] LABS: EOSINOPHILS % (AUTO) 1.1 %; HGB - HEMOGLOBIN 11.2 g/dL (14.0-18.0); MEAN PLATELET VOLUME 8.8 fL (7.4-11.4); RED CELL DISTRIBUTION WIDTH 15.7 % (12.0-15.0)
[2019-01-07 16:25] LABS: BASOPHILS % (AUTO) 0.5 %; LYMPHOCYTES % (AUTO) 15.2 %; MEAN CORPUSCULAR HEMOGLOBIN 28.3 pg (27.0-31.0); MEAN CORPUSCULAR HGB CONC 32.4 g/dL (32.0-36.0); MEAN CORPUSCULAR VOLUME 87.4 fL (80.0-94.0); MONOCYTES % (AUTO) 6.4 %; NEUTROPHILS % (AUTO) 69.7 %; PLT - PLATELET COUNT 211 10^3/uL (130-450); RED BLOOD COUNT 3.96 10^6/uL (4.70-6.10)
[2019-01-07 16:30] LABS: ABNORMAL LYMPHS % (MANUAL) 0 %
[2019-01-07 16:54] LABS: BAND NEUTROPHILS % (MANUAL) 5 %; BASOPHILS # (MANUAL) 0.2 10^3/uL (0-0.1); BASOPHILS % (MANUAL) 1 %; EOSINOPHILS # (MANUAL) 0.2 10^3/uL (0-0.7); LYMPHOCYTES # (MANUAL) 2.6 10^3/uL (1.5-3.5); LYMPHOCYTES % (MANUAL) 16 %; MONOCYTES # (MANUAL) 1.4 10^3/uL (0.0-1.0); RBC MORPHOLOGY (MULTIPLE) NORMAL APPEARANCE (NORMAL)
[2019-01-07 16:55] LABS: DIFFERENTIAL COMMENT MANUAL DIFFERENTIAL; PLATELET ESTIMATE, MANUAL NORMAL (130-450,000) (NORMAL); PLATELET MORPHOLOGY NORMAL APPEARANCE (NORMAL)
[2019-01-08] MEDS: HYDROmorphone 2 MG/ML VIAL IVP PRN ×8 (00:06→18:54)
[2019-01-08] MEDS: PENICILLIN VK 250 MG TABLET PO SCH ×3 (00:06→12:10)
[2019-01-08] MEDS: SODIUM CHLORIDE FLUSH 0.9% 10 ML SYRINGE IVP SCH ×5 (01:10→22:11)
[2019-01-08] MEDS: ACETAMINOPHEN 325 MG TABLET PO SCH ×6 (03:42→21:31)
[2019-01-08] MEDS: SODIUM CHLORIDE 0.9% 1,000 ML IV SCH (03:43)
[2019-01-08] MEDS: oxyCODONE 5 MG TABLET PO PRN ×4 (04:05→21:32)
[2019-01-08 05:43] LABS: CALCIUM 8.4 mg/dL (8.5-10.3); CREATININE 0.6 mg/dL (0.6-1.2)
[2019-01-08 05:44] LABS: BASOPHILS % (AUTO) 0.5 %; EOSINOPHILS % (AUTO) 1.3 %; HGB - HEMOGLOBIN 11.1 g/dL (14.0-18.0); MEAN CORPUSCULAR HEMOGLOBIN 27.8 pg (27.0-31.0); MEAN CORPUSCULAR HGB CONC 31.4 g/dL (32.0-36.0); MEAN CORPUSCULAR VOLUME 88.7 fL (80.0-94.0); MONOCYTES % (AUTO) 6.5 %; NEUTROPHILS % (AUTO) 67.5 %; PLT - PLATELET COUNT 199 10^3/uL (130-450); RED BLOOD COUNT 3.99 10^6/uL (4.70-6.10); RED CELL DISTRIBUTION WIDTH 15.9 % (12.0-15.0); WHITE BLOOD COUNT 11.7 x10^3/uL (4.8-10.8)
[2019-01-08 05:47] LABS: ABNORMAL LYMPHS % (MANUAL) 0 %
[2019-01-08 06:03] LABS: BAND NEUTROPHILS % (MANUAL) 10 %; DIFFERENTIAL COMMENT MANUAL DIFFERENTIAL; LYMPHOCYTES # (MANUAL) 1.6 10^3/uL (1.5-3.5); LYMPHOCYTES % (MANUAL) 14 %; METAMYELOCYTES % (MANUAL) 3 %; MONOCYTES # (MANUAL) 0.7 10^3/uL (0.0-1.0); MYELOCYTES % (MANUAL) 3 %; PLATELET ESTIMATE, MANUAL NORMAL (130-450,000) (NORMAL); RBC MORPHOLOGY (MULTIPLE) NORMAL APPEARANCE (NORMAL)
[2019-01-08] MEDS: SACCHAROMYCES BOULARDII 250 MG CAPSULE PO SCH ×2 (07:52→16:44)
[2019-01-08] MEDS: PRENATAL VITAMIN TABLET PO SCH (07:52)
[2019-01-08] MEDS: THIAMINE 100 MG TABLET PO SCH (08:38)
[2019-01-08] MEDS: SENNA 8.6 MG TABLET PO SCH (08:38)
[2019-01-08] MEDS: DOCUSATE SODIUM 250 MG CAPSULE PO SCH (08:38)
[2019-01-08] MEDS: NICOTINE 14 MG PATCH TOP SCH (08:39)
[2019-01-08] MEDS: HEPARIN 5,000 UNIT/ML VIAL SUBQ SCH ×2 (08:39→21:34)
[2019-01-08] MEDS: POLYETHYLENE GLYCOL 3350 17 GM PACKET PO SCH (09:59)
[2019-01-08] MEDS: SODIUM CHLORIDE FLUSH 0.9% 10 ML SYRINGE IVP PRN ×4 (09:59→16:44)
[2019-01-08] MEDS: LISINOPRIL 20 MG TABLET PO SCH (10:04)
[2019-01-08 13:12] LABS: INR 1.3 (0.8-1.2); PT - PROTHROMBIN TIME 14.4 secs (9.9-12.6)
[2019-01-08 13:17] LABS: ALBUMIN/GLOBULIN RATIO 0.6 (1.0-2.2); CALCIUM 8.7 mg/dL (8.5-10.3); CREATININE 0.6 mg/dL (0.6-1.2); TOTAL PROTEIN 7.8 g/dL (6.7-8.2)
[2019-01-08] MEDS ORDERED: IOVERSOL 320 100 ML VIAL IVP ONE (13:40)
[2019-01-08] MEDS: diphenhydrAMINE 25 MG CAPSULE PO PRN ×2 (14:38→18:45)
--- NOTE | 2019-01-08 14:51 | CT Report ---
Reason: worsening infection Procedure Date: 01/08/2019 Accession Number: [id number] / [id number] Procedure: CT - UPPER EXTREMITY W - RT CPT Code: FULL RESULT: EXAM: RIGHT UPPER EXTREMITY CT WITH CONTRAST EXAM DATE: 01/08/2019 02:00 PM. CLINICAL HISTORY: Worsening infection. COMPARISON: UPPER EXTREMITY RIGHT W/ 01/01/2019 8:30 PM WRIST 4 VIEW RT 12/28/2018 2:24 PM. TECHNIQUE: Thin-section axial images were acquired of the upper extremity from the proximal forearm to the hand after administration of intravenous contrast. IV contrast: 100 mL Optiray 320. Post-processing: Coronal and sagittal reformats. Other: None. In accordance with CT protocol optimization, one or more of the following dose reduction techniques were utilized for this exam: automated exposure control, adjustment of mA and/or KV based on patient size, or use of iterative reconstructive technique. FINDINGS: Bones and articular surfaces: Partially visualized elbow joint unremarkable. No acute fracture. No destructive bone lesions. Normal carpal alignment. Cortical irregularity at the distal first metacarpal may relate to old trauma. No erosive changes. Soft tissues: Significant interval decrease in fluid associated with the extensor tendons at the level of the carpus and hand. Incision site is seen along the dorsal ulnar aspect of the distal forearm, wrist and proximal dorsum of the hand. Within the distal forearm communicating with this incision, there is a fluid collection extending into the deeper soft tissues between the extensor musculature and the extensor carpi ulnaris tendon, partially abutting the interosseous membrane measuring approximately 1.6 x 1.6 cm transverse and approximately 5.5 cm proximal to distal. It may be slightly decreased from prior. Single focus of gas within the collection may relate to the drainage procedure. Deep fluid collection abutting the anterior margin of the distal ulnar diaphysis measures approximately 1.7 x 0.7 cm transverse on image 117 of the 10th series, overall decreased from prior. Small collection of fluid deep to the flexor digitorum profundus tendons proximal to the carpal tunnel, unchanged. 0.7 x 1.3 cm focus of fluid near the superficial margin of the carpal tunnel. Interval decrease in fluid between the ulnar neurovascular bundle and hook of the hamate. Within the substance of the adductor pollicis muscles there is a peripherally-enhancing collection measuring approximately 0.8 x 1.6 x 2.0 cm. This appears similar to previously seen deep hand fluid collection. Additional tiny foci of fluid attenuation scattered within flexor and extensor musculature. Subcutaneous soft tissue edema most pronounced over the dorsum of the hand. Overall, the degree of soft tissue edema within the forearm and hand is decreased from prior, consistent with improvement in cellulitis. IMPRESSION: 1. Interval decrease in fluid collections associated with the extensor tendons. 2. Deep abscess at the dorsal aspect of the forearm abutting the interosseous membrane and extending between the extensor digitorum and extensor carpi ulnaris tendons appear slightly decreased from prior, now communicating with dorsal skin incision. 3. Abscess involving the deep thenar musculature of the hand, similar to prior, 0.8 x 1.6 x 2.0 cm. 4. Severity of subcutaneous soft tissue edema is improved compared to prior. RADIA
--- NOTE | 2019-01-08 15:42 | PROVIDER PROGRESS NOTE ---
Subjective - Prog Note Date Prog Note Date: 01/08/19 Prog Note Time: 13:00 - Subjective Pt reports feeling: Improved (patient says hand slightly swollen and stiff but improving. mother at bedside asks about "rash" on legs. patient reportedly just had dressing change by wound care.) Objective - Vital Signs/Intake & Output Vital Signs: Vital Signs x48h Temp Pulse Resp BP Pulse Ox 01/08/19 10:45 36.8 C 01/08/19 08:35 36.9 C 77 18 165/79 H 100 Intake & Output: Intake & Output 01/05/19 01/06/19 01/07/19 01/08/19 23:59 23:59 23:59 23:59 Intake Total 3370.833 3787.667 3460 2988.333 Output Total 700 Balance 2670.833 3787.667 3460 2988.333 - Lab Results Fish Bones: 01/08/19 05:10 01/08/19 12:54 Other Labs: Lab Results x24hrs 01/08/19 01/08/19 01/08/19 Range/Units 12:54 12:54 10:52 WBC (4.8-10.8) x10^3/uL RBC (4.70-6.10) 10^6/uL Hgb (14.0-18.0) g/dL Hct (42.0-52.0) % MCV (80.0-94.0) fL MCH (27.0-31.0) pg MCHC (32.0-36.0) g/dL RDW (12.0-15.0) % Plt Count (130-450) 10^3/uL MPV (7.4-11.4) fL Neut # (Auto) Lymph # (Auto) [place]ack[place] # (Auto) Eos # (Auto) Baso # (Auto) Absolute Nucleated RBC Total Counted Band Neuts % (Manual) (0 - 10) % Reactive Lymphs % (Man) % Abnorm Lymph % (Manual) % Metamyelocytes % ( - 0) % Myelocytes % ( - 0) % Nucleated RBC % Neutrophils # (Manual) (1.5-6.6) 10^3/uL Lymphocytes # (Manual) (1.5-3.5) 10^3/uL Monocytes # (Manual) (0.0-1.0) 10^3/uL Eosinophils # (Manual) (0-0.7) 10^3/uL Basophils # (Manual) (0-0.1) 10^3/uL Differential Comment Platelet Estimate (NORMAL) Platelet Morphology (NORMAL) RBC Morph Micro Appear (NORMAL) ESR (0-20) mm/Hr PT 14.4 H (9.9-12.6) secs INR 1.3 H (0.8-1.2) Sodium 130 L (135-145) mmol/L Potassium 4.4 (3.5-5.0) mmol/L Chloride 95 L (101-111) mmol/L Carbon Dioxide 25 (21-32) mmol/L Anion Gap 10.0 (6-13) BUN 11 (6-20) mg/dL Creatinine 0.6 (0.6-1.2) mg/dL Estimated GFR (MDRD) 143 (>89) Glucose 167 H (70-100) mg/dL Lactic Acid 1.5 (0.5-2.2) mmol/L Calcium 8.7 (8.5-10.3) mg/dL Total Bilirubin 1.0 (0.2-1.0) mg/dL AST 52 H (10-42) IU/L ALT 37 (10-60) IU/L Alkaline Phosphatase 234 H (42-121) IU/L C-Reactive Protein (0-1.0) mg/dL Total Protein 7.8 (6.7-8.2) g/dL Albumin 3.0 L (3.2-5.5) g/dL Globulin 4.8 H (2.1-4.2) g/dL Albumin/Globulin Ratio 0.6 L (1.0-2.2) 01/08/19 01/08/19 01/08/19 Range/Units 05:10 05:10 05:10 WBC (4.8-10.8) x10^3/uL RBC (4.70-6.10) 10^6/uL Hgb (14.0-18.0) g/dL Hct (42.0-52.0) % MCV (80.0-94.0) fL MCH (27.0-31.0) pg MCHC (32.0-36.0) g/dL RDW (12.0-15.0) % Plt Count (130-450) 10^3/uL MPV (7.4-11.4) fL Neut # (Auto) Lymph # (Auto) [place] # (Auto) Eos # (Auto) Baso # (Auto) Absolute Nucleated RBC Total Counted Band Neuts % (Manual) (0 - 10) % Reactive Lymphs % (Man) % Abnorm Lymph % (Manual) % Metamyelocytes % ( - 0) % Myelocytes % ( - 0) % Nucleated RBC % Neutrophils # (Manual) (1.5-6.6) 10^3/uL Lymphocytes # (Manual) (1.5-3.5) 10^3/uL Monocytes # (Manual) (0.0-1.0) 10^3/uL Eosinophils # (Manual) (0-0.7) 10^3/uL Basophils # (Manual) (0-0.1) 10^3/uL Differential Comment Platelet Estimate (NORMAL) Platelet Morphology (NORMAL) RBC Morph Micro Appear (NORMAL) ESR 79 H (0-20) mm/Hr PT (9.9-12.6) secs INR (0.8-1.2) Sodium 132 L (135-145) mmol/L Potassium 4.2 (3.5-5.0) mmol/L Chloride 97 L (101-111) mmol/L Carbon Dioxide 25 (21-32) mmol/L Anion Gap 10.0 (6-13) BUN 11 (6-20) mg/dL Creatinine 0.6 (0.6-1.2) mg/dL Estimated GFR (MDRD) 143 (>89) Glucose 165 H (70-100) mg/dL Lactic Acid (0.5-2.2) mmol/L Calcium 8.4 L (8.5-10.3) mg/dL Total Bilirubin (0.2-1.0) mg/dL AST (10-42) IU/L ALT (10-60) IU/L Alkaline Phosphatase (42-121) IU/L C-Reactive Protein 8.2 H (0-1.0) mg/dL Total Protein (6.7-8.2) g/dL Albumin (3.2-5.5) g/dL Globulin (2.1-4.2) g/dL Albumin/Globulin Ratio (1.0-2.2) 01/08/19 01/07/19 01/07/19 Range/Units 05:10 16:15 16:15 WBC 11.7 H 15.0 H (4.8-10.8) x10^3/uL RBC 3.99 L 3.96 L (4.70-6.10) 10^6/uL Hgb 11.1 L 11.2 L (14.0-18.0) g/dL Hct 35.4 L 34.6 L (42.0-52.0) % MCV 88.7 87.4 (80.0-94.0) fL MCH 27.8 28.3 (27.0-31.0) pg MCHC 31.4 L 32.4 (32.0-36.0) g/dL RDW 15.9 H 15.7 H (12.0-15.0) % Plt Count 199 211 (130-450) 10^3/uL MPV 9.0 8.8 (7.4-11.4) fL Neut # (Auto) Not Reportable Not Reportable Lymph # (Auto) Not Reportable Not Reportable Bracken # (Auto) Not Reportable Not Reportable Eos # (Auto) Not Reportable Not Reportable Baso # (Auto) Not Reportable Not Reportable Absolute Nucleated RBC Not Reportable Not Reportable Total Counted 100 100 Band Neuts % (Manual) 10 5 (0 - 10) % Reactive Lymphs % (Man) 1 % Abnorm Lymph % (Manual) 0 0 % Metamyelocytes % 3 H ( - 0) % Myelocytes % 3 H ( - 0) % Nucleated RBC % Not Reportable Not Reportable Neutrophils # (Manual) 8.7 H 10.8 H (1.5-6.6) 10^3/uL Lymphocytes # (Manual) 1.6 2.6 (1.5-3.5) 10^3/uL Monocytes # (Manual) 0.7 1.4 H (0.0-1.0) 10^3/uL Eosinophils # (Manual) 0.0 0.2 (0-0.7) 10^3/uL Basophils # (Manual) 0.0 0.2 H (0-0.1) 10^3/uL Differential Comment MANUAL DIFFERENTIAL MANUAL DIFFERENTIAL Platelet Estimate NORMAL (130-450,000) NORMAL (130-450,000) (NORMAL) Platelet Morphology NORMAL APPEARANCE (NORMAL) RBC Morph Micro Appear NORMAL APPEARANCE NORMAL APPEARANCE (NORMAL) ESR (0-20) mm/Hr PT (9.9-12.6) secs INR (0.8-1.2) Sodium (135-145) mmol/L Potassium (3.5-5.0) mmol/L Chloride (101-111) mmol/L Carbon Dioxide (21-32) mmol/L Anion Gap (6-13) BUN (6-20) mg/dL Creatinine (0.6-1.2) mg/dL Estimated GFR (MDRD) (>89) Glucose (70-100) mg/dL Lactic Acid (0.5-2.2) mmol/L Calcium (8.5-10.3) mg/dL Total Bilirubin (0.2-1.0) mg/dL AST (10-42) IU/L ALT (10-60) IU/L Alkaline Phosphatase (42-121) IU/L C-Reactive Protein 7.9 H (0-1.0) mg/dL Total Protein (6.7-8.2) g/dL Albumin (3.2-5.5) g/dL Globulin (2.1-4.2) g/dL Albumin/Globulin Ratio (1.0-2.2) - Other Results/Comments Other Results/Comments: right hand remains with light touch sensation and equal warmth throughout. some digital swelling but skin wrinkles still visible on digits and hand. aarom can get near full digital extension and flexion is 2-3cm short of palm. no sig surrounding erythema noted. some blood staining of dorsal dressing otherwise dressings clean dry intact. digital, hand, forearm cpts soft. Sepsis Event Note (H) - Evaluation Current Stage of Sepsis: Resolved Possible source of Sepsis: positive: Skin/soft tissue - Sepsis Criteria Sepsis Criteria: Recorded Heart Rate greater than 90 bpm, WBC count greater than 12,000 or less than 4000 Assessment/Plan - Problem List (1) Right forearm cellulitis Impression: cinically improving regard to forearm, hand, wrist. had recommended dc home on abx with dressing changes by wound care in meantime and ortho follow-up 3-4 day s. However, recently made aware of CT ordered by Hospitalist Adhikari which generally shows improvement on all accounts though with a residual deep thenar collection remaining. other aspects generally improved vs previous. Also patient rash discussed with Hospitalist. potential etiology and need for further w/u discussed. as such- despite clinical appearance, with current CT exam and patient medical hx, I am concerned that patient may need higher level of care from hand specialist at trauma center. though it appears that surgeries to date were quite appropriate and beneficial further surgery would be outside scope of orthopedic resources available at this time. this is communicated to Hospitalelbert Blackburn and he is advised to arrange for appropriate transfer. Rational for this is di scussed and reviewed with JENNIE Blackburn and with Hospitalist . We remain available for continuity of care, to help facilitate the above, or if further orthopedic assistance is needed within scope.
[2019-01-08] MEDS: levoFLOXacin 250 MG TABLET PO SCH (16:41)
[2019-01-08] MEDS: methylPREDNISolone SUCCINATE 40 MG/ML VIAL IVP SCH ×2 (16:42→21:32)
--- NOTE | 2019-01-08 18:08 | PROVIDER PROGRESS NOTE ---
Subjective - Prog Note Date Prog Note Date: 01/08/19 - Subjective Pt reports feeling: No change Subjective: pt report his hand is more swollen than yesterday. pt's CRP and ESR continue elevated slightly. I ordered CT of hand before pt is planned for d/c. the CT result indicates intervel decrease in fluid collection, deep abscess slightly decreased from prior, specially the abscess involving the deep thenar musculature of the hand is similar to prior 0.8x1.6x2 cm[address] I [address] Dr[address] Sneed to report the CT result. Dr. Sneed asked me to transfer pt for high level care. I called Jeremy Santiago to try transfer pt for high level care. Dr. Arango, Orthopedic surgeon called me back. After review pt's medical condition, recommended pt is not necessarily now to be transferred for inpt. Dr. Arango stated after pt had procedures, status post fluid collection is common, the fluid will be absorbed by his own. Pt can followup [facility], [place] hand s urgeon if pt continue need of medical attention. Jeremy Flynn also gave me the hand surgery clinic phone number. Current Medications - Current Medications Current Medications: Active Medications Acetaminophen (Tylenol) 650 mg PO Q4HR [facility] Last Admin: 01/09/19 09:05 Dose: 650 mg Acetaminophen (Tylenol) 650 - 975 mg PO Q4HR PRN PRN Reason: PAIN Calcium Carbonate/Glycine (Tums) 500 mg PO BID PRN PRN Reason: Heartburn Last Admin: 01/05/19 20:01 Dose: 500 mg Diphenhydramine HCl (Benadryl) 25 mg PO Q4HR PRN PRN Reason: Allergy Symptoms Last Admin: 01/09/19 00:08 Dose: 25 mg Docusate Sodium (Colace 250mg Capsule) 250 - 500 mg PO DAILY [facility] Last Admin: 01/09/19 09:07 Dose: Not Given Heparin Sodium (Porcine) () 5,000 unit SUBQ BID [facility] Last Admin: 01/09/19 09:08 Dose: 5,000 unit Hydromorphone HCl (Dilaudid (Vial)) 2 mg IVP Q2H PRN PRN Reason: PAIN Last Admin: 01/09/19 05:31 Dose: 2 mg Sodium Chloride (Normal Saline 0.9%) 1,000 mls @ 83.333 mls/hr IV .Q12H [facility] Last Admin: 01/08/19 22:10 Dose: 83.333 mls/hr Levofloxacin (Levaquin) 750 mg PO DAILY [facility] Last Admin: 01/09/19 09:06 Dose: 750 mg Lisinopril (Zestril) 40 mg PO DAILY [facility] Last Admin: 01/09/19 09:07 Dose: 40 mg Methylprednisolone (Solu-Medrol (40mg Vial)) 40 mg IVP BID [facility] Last Admin: 01/09/19 09:07 Dose: 40 mg Nicotine (Nicoderm) 1 patch TOP DAILY [facility] Last Admin: 01/09/19 09:08 Dose: Not Given Ondansetron HCl (Zofran Inj) 4 mg IVP Q6HR PRN PRN Reason: Nausea / Vomiting Oxycodone HCl (Roxicodone) 10 mg PO Q4HR PRN PRN Reason: PAIN Last Admin: 01/09/19 09:05 Dose: 10 mg Polyethylene Glycol (Miralax) 17 gm PO DAILY [facility] Last Admin: 01/09/19 09:06 Dose: Not Given Multivit/Folic Acid/Iron (Trinatal Rx 1) 1 tab PO DAILYWM [facility] Last Admin: 01/09/19 09:07 Dose: 1 tab Prochlorperazine Edisylate (Compazine Inj) 10 mg IVP Q6HR PRN PRN Reason: Nausea / Vomiting Saccharomyces Boulardii (Florastor) 250 mg PO BIDWM [facility] Last Admin: 01/09/19 09:07 Dose: 250 mg Senna (Senokot) 17.2 mg PO Q12H PRN PRN Reason: Constipation Last Admin: 01/07/19 22:01 Dose: 17.2 mg Senna (Senokot) 8.6 - 17.2 mg PO DAILY [facility] Last Admin: 01/09/19 09:07 Dose: Not Given Sodium Chloride (Normal Saline Flush 0.9%) 10 ml IVP PRN PRN PRN Reason: NEEDED PER PROVIDER ORDERS Last Admin: 01/08/19 16:44 Dose: 10 ml Sodium Chloride (Normal Saline Flush 0.9%) 10 ml IVP 0100,0900,1700 [facility] Last Admin: 01/09/19 09:07 Dose: 10 ml Thiamine HCl (Vitamin B-1) 100 mg PO DAILY [facility] Last Admin: 01/09/19 09:07 Dose: 100 mg Lisinopril 40 mg PO DAILY 06/15/17 Objective - Vital Signs/Intake & Output Reviewed Vital Signs: Yes Vital Signs: Vital Signs x48h Temp Pulse Resp BP Pulse Ox 01/08/19 16:05 36.8 C 98 18 167/96 H 100 01/08/19 10:45 36.8 C Intake & Output: Intake & Output 01/05/19 01/06/19 01/07/19 01/08/19 23:59 23:59 23:59 23:59 Intake Total 3370.833 3787.667 3460 2988.333 Output Total 700 Balance 2670.833 3787.667 3460 2988.333 - Objective General Appearance: positive: No acute distress, Alert. negative: Lethargic Eyes Bilateral: positive: Normal inspection, PERRL, No lid inflammation, Conjunctivae nml ENT: positive: ENT inspection nml, Pharynx nml, No signs of dehydration. negative: Purulent nasal drainage, Pharyngeal erythema, Oral lesions Neck: positive: Nml inspection, Thyroid nml, No JVD, Trachea midline. negative: Thyromegaly, Lymphadenopathy (R), Lymphadenopathy (L), Stiff neck, Sw elling/bruising, Tracheal deviation Respiratory: positive: Chest non-tender, No respiratory distress, Breath sounds nml. negative: Wheezes, Rales, Rhonchi Cardiovascular: positive: Regular rate & rhythm, No murmur, No gallop. negative: Irregularly irregular, Extrasystoles, Tachycardia, Bradycardia, JVD present, Systolic murmur, Diastolic murmur Peripheral Pulses: 2+ Radial (L), 2+ Dorsalis pedis (R), 2+ Dorsalis pedis (L) Abdomen: positive: Non-tender, No organomegaly, Nml bowel sounds, No distention. negative: Tenderness, Guarding, Rebound Back: positive: Nml inspection. negative: CVA tenderness (R), CVA tenderness (L) Skin: positive: Warm, Dry, Skin rash. negative: Cyanosis, Diaphoresis, Pallor Extremities: positive: Non-tender. negative: Calf tenderness, Joint swelling, Jose A's sign/cords Neurologic/Psychiatric: positive: Oriented x3, Sensation nml, Mood/affect nml. negative: Weakness, Sensory loss, Facial droop, Slurred/abnml speech, Depressed mood/affect - Lab Results Fish Bones: 01/09/19 05:20 01/09/19 05:20 Other Labs: Lab Results x24hrs 01/08/19 01/08/19 01/08/19 Range/Units 12:54 12:54 10:52 WBC (4.8-10.8) x10^3/uL RBC (4.70-6.10) 10^6/uL Hgb (14.0-18.0) g/dL Hct (42.0-52.0) % MCV (80.0-94.0) fL MCH (27.0-31.0) pg MCHC (32.0-36.0) g/dL RDW (12.0-15.0) % Plt Count (130-450) 10^3/uL MPV (7.4-11.4) fL Neut # (Auto) Lymph # (Auto) [place] # (Auto) Eos # (Auto) Baso # (Auto) Absolute Nucleated RBC Total Counted Band Neuts % (Manual) (0 - 10) % Abnorm Lymph % (Manual) % Metamyelocytes % ( - 0) % Myelocytes % ( - 0) % Nucleated RBC % Neutrophils # (Manual) (1.5-6.6) 10^3/uL Lymphocytes # (Manual) (1.5-3.5) 10^3/uL Monocytes # (Manual) (0.0-1.0) 10^3/uL Eosinophils # (Manual) (0-0.7) 10^3/uL Basophils # (Manual) (0-0.1) 10^3/uL Differential Comment Platelet Estimate (NORMAL) RBC Morph Micro Appear (NORMAL) ESR (0-20) mm/Hr PT 14.4 H (9.9-12.6) secs INR 1.3 H (0.8-1.2) Sodium 130 L (135-145) mmol/L Potassium 4.4 (3.5-5.0) mmol/L Chloride 95 L (101-111) mmol/L Carbon Dioxide 25 (21-32) mmol/L Anion Gap 10.0 (6-13) BUN 11 (6-20) mg/dL Creatinine 0.6 (0.6-1.2) mg/dL Estimated GFR (MDRD) 143 (>89) Glucose 167 H (70-100) mg/dL Lactic Acid 1.5 (0.5-2.2) mmol/L Calcium 8.7 (8.5-10.3) mg/dL Total Bilirubin 1.0 (0.2-1.0) mg/dL AST 52 H (10-42) IU/L ALT 37 (10-60) IU/L Alkaline Phosphatase 234 H (42-121) IU/L C-Reactive Protein (0-1.0) mg/dL Total Protein 7.8 (6.7-8.2) g/dL Albumin 3.0 L (3.2-5.5) g/dL Globulin 4.8 H (2.1-4.2) g/dL Albumin/Globulin Ratio 0.6 L (1.0-2.2) 01/08/19 01/08/19 01/08/19 Range/Units 05:10 05:10 05:10 WBC (4.8-10.8) x10^3/uL RBC (4.70-6.10) 10^6/uL Hgb (14.0-18.0) g/dL Hct (42.0-52.0) % MCV (80.0-94.0) fL MCH (27.0-31.0) pg MCHC (32.0-36.0) g/dL RDW (12.0-15.0) % Plt Count (130-450) 10^3/uL MPV (7.4-11.4) fL Neut # (Auto) Lymph # (Auto) [place] # (Auto) Eos # (Auto) Baso # (Auto) Absolute Nucleated RBC Total Counted Band Neuts % (Manual) (0 - 10) % Abnorm Lymph % (Manual) % Metamyelocytes % ( - 0) % Myelocytes % ( - 0) % Nucleated RBC % Neutrophils # (Manual) (1.5-6.6) 10^3/uL Lymphocytes # (Manual) (1.5-3.5) 10^3/uL Monocytes # (Manual) (0.0-1.0) 10^3/uL Eosinophils # (Manual) (0-0.7) 10^3/uL Basophils # (Manual) (0-0.1) 10^3/uL Differential Comment Platelet Estimate (NORMAL) RBC Morph Micro Appear (NORMAL) ESR 79 H (0-20) mm/Hr PT (9.9-12.6) secs INR (0.8-1.2) Sodium 132 L (135-145) mmol/L Potassium 4.2 (3.5-5.0) mmol/L Chloride 97 L (101-111) mmol/L Carbon Dioxide 25 (21-32) mmol/L Anion Gap 10.0 (6-13) BUN 11 (6-20) mg/dL Creatinine 0.6 (0.6-1.2) mg/dL Estimated GFR (MDRD) 143 (>89) Glucose 165 H (70-100) mg/dL Lactic Acid (0.5-2.2) mmol/L Calcium 8.4 L (8.5-10.3) mg/dL Total Bilirubin (0.2-1.0) mg/dL AST (10-42) IU/L ALT (10-60) IU/L Alkaline Phosphatase (42-121) IU/L C-Reactive Protein 8.2 H (0-1.0) mg/dL Total Protein (6.7-8.2) g/dL Albumin (3.2-5.5) g/dL Globulin (2.1-4.2) g/dL Albumin/Globulin Ratio (1.0-2.2) 01/08/19 Range/Units 05:10 WBC 11.7 H (4.8-10.8) x10^3/uL RBC 3.99 L (4.70-6.10) 10^6/uL Hgb 11.1 L (14.0-18.0) g/dL Hct 35.4 L (42.0-52.0) % MCV 88.7 (80.0-94.0) fL MCH 27.8 (27.0-31.0) pg MCHC 31.4 L (32.0-36.0) g/dL RDW 15.9 H (12.0-15.0) % Plt Count 199 (130-450) 10^3/uL MPV 9.0 (7.4-11.4) fL Neut # (Auto) Not Reportable Lymph # (Auto) Not Reportable [place] # (Auto) Not Reportable Eos # (Auto) Not Reportable Baso # (Auto) Not Reportable Absolute Nucleated RBC Not Reportable Total Counted 100 Band Neuts % (Manual) 10 (0 - 10) % Abnorm Lymph % (Manual) 0 % Metamyelocytes % 3 H ( - 0) % Myelocytes % 3 H ( - 0) % Nucleated RBC % Not Reportable Neutrophils # (Manual) 8.7 H (1.5-6.6) 10^3/uL Lymphocytes # (Manual) 1.6 (1.5-3.5) 10^3/uL Monocytes # (Manual) 0.7 (0.0-1.0) 10^3/uL Eosinophils # (Manual) 0.0 (0-0.7) 10^3/uL Basophils # (Manual) 0.0 (0-0.1) 10^3/uL Differential Comment MANUAL DIFFERENTIAL Platelet Estimate NORMAL (130-450,000) (NORMAL) RBC Morph Micro Appear NORMAL APPEARANCE (NORMAL) ESR (0-20) mm/Hr PT (9.9-12.6) secs INR (0.8-1.2) Sodium (135-145) mmol/L Potassium (3.5-5.0) mmol/L Chloride (101-111) mmol/L Carbon Dioxide (21-32) mmol/L Anion Gap (6-13) BUN (6-20) mg/dL Creatinine (0.6-1.2) mg/dL Estimated GFR (MDRD) (>89) Glucose (70-100) mg/dL Lactic Acid (0.5-2.2) mmol/L Calcium (8.5-10.3) mg/dL Total Bilirubin (0.2-1.0) mg/dL AST (10-42) IU/L ALT (10-60) IU/L Alkaline Phosphatase (42-121) IU/L C-Reactive Protein (0-1.0) mg/dL Total Protein (6.7-8.2) g/dL Albumin (3.2-5.5) g/dL Globulin (2.1-4.2) g/dL Albumin/Globulin Ratio (1.0-2.2) ABX Reporting Has patient been on IV antibiotics over the past 48 hours?: Yes Sepsis Event Note (H) - Evaluation Current Stage of Sepsis: Resolved Possible source of Sepsis: positive: Skin/soft tissue - Sepsis Criteria Sepsis Criteria: Recorded Heart Rate greater than 90 bpm, WBC count greater than 12,000 or less than 4000 Assessment/Plan - Problem List (1) Infectious fasciitis Impression: 01/08 pt's WBC is runing down to 11. pt report his hand swollen more than before. CT of hand reveals the CT result indicates intervel decrease in fluid collection, deep abscess slightly decreased from prior, specially the abscess involving the deep thenar musculature of the hand is similar to prior 0.8x1.6x2 cm[address] I [address] Dr. Sneed to report the CT result. Dr. Sneed asked me to transfer pt for high level care. I called Jeremy Santiago to try transfer pt for high l evel care. Dr. Arango, Orthopedic surgeon called me back. After review pt's medical condition, recommended pt is not necessarily now to be transferred for inpt. Dr. Arango stated after pt had twice procedures, status post fluid collection is common, the fluid will be absorbed by his own. Pt can followup [facility], [place] hand surgeon if pt continue need of medical attention. Jeremy Nurse also gave me the hand surgery clinic phone number. it seems pt allergy to Penicillin but pt never told us before or he is not known that before. Stop Penicillin, according culture sensitive documentation, Levoquin is chosen for pt now continue rise right hand continue vital and lab monitor plan d/c tomorrow with leidy 01/07 pt's drainage tube is removed today by orthopedics. pt report his pain and pressure was reduced after removal of drainage tube. orthopedics did twice drainage for pt. pt's CRP is gradually reduced and lactic acid is reduced, but ESR and WBC is still elevated and abnormal. pt's antibiotics was switched to PO penicillin V. plan: continue followup orthopedics, orthopedics recommend pt may be d/c on tomorrow. consult with Wound care provider, will follow up continue PO Pencillin and recheck CBC continue rise right hand continue vital and lab monitor refer from Dr. Macario's progress report as the below. Right hand and right forearm. This is the source of his sepsis; the sepsis has resolved. We initially labeled it a cellulitis but this infection has involved skin and fascia as seen in OR reports. On admission, it was a nonpurulent cellulitis but there was extensive edema, pain and bullae over the dorsum of the right hand. His was and has remained neurovascularly intact although he does report some numbness in his finger tips. On admission, ESR 72 and CRP 27 elevated. Normal CK, AST is only minimally elevated. Given the progression of his edema and pain, needed evaluation for nec fasc. LRINEC score is 3 but CRP is pending. Receiving Cefazolin in the ER. Right arm CT compared to duplex and has severe SQ edema without soft tissue gas. Large fluid loculations surrounding the extensor tendons posteriorly at level of carpus. Small IM fluid collecitons within the instrinsic musccles of the hand palm to the 2nd -4th MCP measuring up to 17x5 mm. Additional deep space edema/loculated fluid between the distal radius and ulna [id number] mm. This was discussed with orthopedic surgery on admit and Dr. Padron saw the patient. 01/03, since he is not better overnight, went to the OR but checked an US first and no discrete abcess seen. In the OR serosanguinous fluid along severel planes of tissue in the ventral wrist slice and palm slice but no abcess. hand shrunk and improved with just that. Blood cultures from admission have been negative. Wound culture from 01/03 growing out Group G, betahemolytic strep (most likely contaminant) ESR 78>68 CRP is down to 12>7.2 Taken back to the OR 01/05 and he is improving on direct visualization of wounds. - Expanded abx coverage with Clindamycin, Zosyn and Vancomycin IV given concern for possible nec fasc, Day #5 but since it is not nec fasc, I stopped Clinda 10 which was Day#4 and no fever. It's time to deescalate even further since ortho tentatively plans for discharge on 01/08. Drains will come out that day. In reviewing [place] soft tissue infections presume from Strep can be treated with oral PCN. As such, will change to PCN today and watch for fever today and tomorrow before dc on 01/08 - Follow CRP daily and it is going down (2) rash pt report today his bilateral lower extremities with rash and itching. it seems pt allergy to Penicillin but pt never told us before or he is not known that before. pt report since antibiotics changed to PO penicillin, he gradually found tiny rash and then yesterday he had more rash in his bilateral legs. stop penicillin, switch to antibiotics Levoquin according the sensitive report order steroid solu-medro order Benadryl PRN (3) Hyponatremia Conclusion/Plan: 01/08 Na is 132, slight lower than normal, order judicious IV of NS lab monitor resolved (4) Hypokalemia Conclusion/Plan: resolved (5) Alcohol use Conclusion/Plan: 01/07 continue vitamins, thiamine. Drinks a 6 pack of beer daily but has decreased his consumption over last few da ys. Will monitor for alcohol withdrawal. So far BP and pulse stable. On vitamins, thiamine. (6) tobacco abuse Nicotine patch requested by patient and ordered. (7) Amphetamine abuse 01/07 advise pt stop this abuse Drug screen positive. He did have a cold over a week ago and had to take OTC meds, so may be from that but he also states he does do speed and last use last week. Advised on stopping that. (8) Hypertension. 01/07 slight elevated, will recheck again, and followup continue Lisinopril. Resume home lisinpril dose
[2019-01-08] MEDS ORDERED: SODIUM CHLORIDE 0.9% 1,000 ML IV SCH (22:00)
[2019-01-09] MEDS: ACETAMINOPHEN 325 MG TABLET PO SCH ×4 (00:07→13:31)
[2019-01-09] MEDS: HYDROmorphone 2 MG/ML VIAL IVP PRN ×3 (00:08→10:29)
[2019-01-09] MEDS: diphenhydrAMINE 25 MG CAPSULE PO PRN (00:08)
[2019-01-09] MEDS: oxyCODONE 5 MG TABLET PO PRN ×3 (01:48→13:31)
[2019-01-09 05:33] LABS: BASOPHILS % (AUTO) 0.3 %; EOSINOPHILS % (AUTO) 0.2 %; HGB - HEMOGLOBIN 10.7 g/dL (14.0-18.0); LYMPHOCYTES # (AUTO) 0.8 10^3/uL (1.5-3.5); LYMPHOCYTES % (AUTO) 6.3 %; MEAN CORPUSCULAR HEMOGLOBIN 28.5 pg (27.0-31.0); MEAN CORPUSCULAR HGB CONC 32.2 g/dL (32.0-36.0); MEAN CORPUSCULAR VOLUME 88.3 fL (80.0-94.0); MEAN PLATELET VOLUME 9.2 fL (7.4-11.4); MONOCYTES # (AUTO) 0.4 10^3/uL (0.0-1.0); MONOCYTES % (AUTO) 2.7 %; NEUTROPHILS # (AUTO) 11.4 10^3/uL (1.5-6.6); NEUTROPHILS % (AUTO) 87.7 %; PLT - PLATELET COUNT 195 10^3/uL (130-450); RED BLOOD COUNT 3.76 10^6/uL (4.70-6.10); RED CELL DISTRIBUTION WIDTH 15.6 % (12.0-15.0)
[2019-01-09 05:48] LABS: CALCIUM 8.6 mg/dL (8.5-10.3); CREATININE 0.7 mg/dL (0.6-1.2); CRP - C-REACTIVE PROTEIN 9.6 mg/dL (0-1.0)
[2019-01-09] MEDS: levoFLOXacin 250 MG TABLET PO SCH (09:06)
[2019-01-09] MEDS: POLYETHYLENE GLYCOL 3350 17 GM PACKET PO SCH (09:06)
[2019-01-09] MEDS: DOCUSATE SODIUM 250 MG CAPSULE PO SCH (09:07)
[2019-01-09] MEDS: THIAMINE 100 MG TABLET PO SCH (09:07)
[2019-01-09] MEDS: SACCHAROMYCES BOULARDII 250 MG CAPSULE PO SCH (09:07)
[2019-01-09] MEDS: methylPREDNISolone SUCCINATE 40 MG/ML VIAL IVP SCH (09:07)
[2019-01-09] MEDS: SODIUM CHLORIDE FLUSH 0.9% 10 ML SYRINGE IVP SCH (09:07)
[2019-01-09] MEDS: PRENATAL VITAMIN TABLET PO SCH (09:07)
[2019-01-09] MEDS: SENNA 8.6 MG TABLET PO SCH (09:07)
[2019-01-09] MEDS: LISINOPRIL 20 MG TABLET PO SCH (09:07)
[2019-01-09] MEDS: NICOTINE 14 MG PATCH TOP SCH (09:08)
[2019-01-09] MEDS: HEPARIN 5,000 UNIT/ML VIAL SUBQ SCH (09:08)
[2019-01-09] MEDS ORDERED: SODIUM CHLORIDE 1 GM TABLET PO ONE (10:00)
--- NOTE | 2019-01-09 11:55 | Discharge Plan ---
Discharge Plan Problem Reviewed?: Yes Disposition: 06 Home Health Service Condition: Stable Prescriptions: diphenhydrAMINE [Benadryl] 25 mg PO Q4HR PRN #15 capsule PRN Reason: Allergy Symptoms levoFLOXacin [Levaquin] 750 mg PO DAILY #30 tablet Oxycodone HCl/Acetaminophen [Oxycodone-Acetaminophen 10-325] 1 each PO Q4H PRN #20 tablet PRN Reason: Pain predniSONE [Deltasone] 10 mg PO [id number] #12 tab Diet: Regular Activity Restrictions: Activity as Tolerated Shower Restrictions: No (fall precaution) Driving Restrictions: Yes (untill approved by orthopedics or your PCP) Instruction Topics: Diphenhydramine capsules or tablets, Levofloxacin tablets, Prednisone tablets, Oxycodone tablets or capsules, Drainage Abscess, Cellulitis [facility] Concerns: cellulitis with drainage abscess Plan of Treatment: you were found to have severe cellulitis with abscess. You had I/D procedure done by orthopedics in hospital. you are prescribed antibiotics and pain meds for continuing of care. please followup orthopedics office on 01/13 10 am, please followup [facility] for wound care. please followup your PCP in early next week and have CBC and CMP to monitor for you, and followup ID as out-pt Our social director also schedule a hand speciality with your PCP referral MAHENDRA Care Goals: stabilization and improved of your medical conditions Assessment: assessment as the above Additional Instructions or Follow Up instructions: please followup orthopedics office on 01/13 10 am, please followup [facility] for wound care. please followup your PCP in early next week and have CBC and CMP to monitor for you, and followup ID as out-pt Our social director also schedule a hand speciality with your PCP referral MAHENDRA Should your symptoms return or worse, you may present ER or call 911 for help. Follow-Up Care: [facility] - Wound/Ostomy No Smoking: If you smoke, Please STOP! Call for help. Follow-up with: Jennifer George MD [Physician No Access] -
--- NOTE | 2019-01-09 12:30 | DISCHARGE SUMMARY ---
Discharge Summary Admit Date: 01/01/19 Discharge Date: 01/09/19 Discharging Provider: Aristeo Blackburn Primary Care Provider: Dr. Lynn George Condition at Discharge: Stable Discharge Disposition: Home Health Service Discharge Facility Name: home - DIAGNOSES Admission Diagnoses: (1) Sepsis due to cellulitis (2) Right forearm cellulitis (3) Hyponatremia (4) Hypokalemia (5) Alcohol use Discharge Diagnoses with Status of Each Condition: (1) Infectious fasciitis stable and control. pt state he feel much better. he strongly request to be d/c to home. his pain is controlled and did not feel pressure, no fever or chill. Blood culture is negative. Wound culture reveals beta-hemolitic strep Group G. pt was unknown drug allergy until pt was later found to allergy to Penicillin. pt was prescribed Levoquin for d/c according to predictable susceptibility. pt's WBC is slightly elevated because pt was given steroid for his rash, which was likely caused by Penicillin V. pt also was prescribed Benadryl PRN for skin itching. pt had twice surgeries with orthopedics surgeon. pt was informed his wound need times for healing. Because pt strongly request to be d/c to home, With child welfare social worker, we made the following efforts for pt's following up care: Initially [place] [facility] at [phone] was set up by child welfare social worker for f/u care after discharge. but unfortunately the Office is not contracted with [facility]. Call was made by child welfare social worker to [facility], they are contracted with pt's insurance, require referral from [facility] to schedule. Pt has appt 01/15/[address] Khan, pt's PCP. Pt and mother was informed Pt needs f/u with hand surgeon. [facility] has hand surgeon, requires referral needs to come from PCP. Called [facility], confirmed that pt will be getting wound care at [facility] Set up f/u appt for 01/13 at 1000. pt was informed. (2) rash pt developed bilateral lower extremities rash about 48 hours later after pt was given Penicillin V. pt was given Benadryl and Solu-metrol. after treatment, pt state he feel much better, rash was controlled and reduced significantly. pt has no more itching. pt was prescribed Benadryl PRN and 6 days lower dosage of Prednisone wane off. (3) Hyponatremia Na 129 at d/c. pt was placed IV of NS and PO sodium. pt was given steroid for her rash which can lower sodium level from steroid's side effect. (4) Hypokalemia resolved (5) Alcohol use advise pt control (6) tobacco abuse advise quit (7) Amphetamine abuse advise pt quit (8) Hypertension." stable. pt has no more Lisinopril meds at home. Lisinopril is prescribed for pt. - HPI History of Present Illness: refer from Dr. rutledge's HPI on 01/01/19 This is a 48 year old male with a past medical history significant for hypertension and alcohol use who presents from home complaining of worsening swelling, erythema, and pain of his right forearm. He reports the pain began Sunday and was initially located in his right wrist. He went to the ER where he was treated for acute gout. He states he went home but his pain never really improved. He then noted swelling in his right hand and redness. Today the pain became much more severe and the swelling along with erythema spread to his right elbow over 5-6 hours. He reports numbness of his right finger tips. He has severe pain with palpation of the right forearm and movement of his digits. The dilaudid he received in the ER today provided some relief but the pain persists. He reports no trauma to the extremity. He was working on his deck last week but does not recall major trauma to his extremities. He does have a few minor scrapes on his arms. He reports no fevers or chills. Does endorse some nausea today but no emesis. He is not a diabetic. He had cellulitis of his left lower extremity in the past. He states he was not admitted and was treated with oral antibiotics. He denies IV drug use. He does drink alcohol daily for quite some time but reports only having half a drink this morning since Sunday due to his discomfort. He denies going through withdrawal in the past. In the ER, he was afebrile, tachycardic, and slightly hypertensive. Labs were significant for a white count of 13.3 with a left shift and 8% bands. ESR is elevated at 72. He is hyponatremic and hypokalemic. BUN elevated at 27 with a normal creatinine. T bili elevated at 1.9 and AST at 44. Normal CK's. Medicine was consulted for admission given the severity of his cellulitis. - CONSULTS | PROCEDURES Consultations: Dr. Padron, orthopedics Procedures: I/D twice for pt - HOSPITAL COURSE Hospital Course: pt was admitted for severe right hand and forearm cellulitis. orthopedics was consulted for abscess. pt had twice operation by orthopedics for release press ure and I/D drainage out. for The detail please Dr. Padron's operation report. Pt was initially treated with Zosyn, clindamycin and vancomycin. According to wound culture which reveals beta-hemolitic strep Group G. pt was changed to PO Penicillin V. pt developed rash after pt had PO Penicillin. pt's rash was controlled and significantly reduced after pt was treated with Benadryl and Steroid. CT of right hand before d/c reveals pt reveal overall soft tissue edema is decreased and cellulitis improved. called was made to [facility] . After reviewed case with Dr. Arango, he recommended pt does not need to be transferred for inpt care more. pt was d/c with antibiotics and full s cheduled out-pt care. the detail hospital course is as the below: (1) Infectious fasciitis stable and control. pt state he feel much better. he strongly request to be d/c to home. his pain is controlled and did not feel pressure, no fever or chill. Blood culture is negative. Wound culture reveals beta-hemolitic strep Group G. pt was unknown drug allergy until pt was later found to allergy to Penicillin. pt was prescribed Levoquin for d/c according to predictable susceptibility. pt's WBC is slightly elevated because pt was given steroid for his rash, which was likely caused by Penicillin V. pt also was prescribed Benadryl PRN for skin itching. pt had twice surgeries with orthopedics surgeon. pt was informed his wound need times for healing. Because pt strongly request to be d/c to home, With child welfare social worker, we made the following efforts for pt's following up care: Initially [facility] at [phone] was set up by child welfare social worker for f/u care after discharge. but unfortunately the Office is not contracted with [facility]. Call was made by child welfare social worker to [facility], they are contracted with pt's insurance, require referral from [facility] to schedule. Pt has appt 01/15/[address] Khan, pt's PCP. Pt and mother was informed Pt needs f/u with hand surgeon. [facility] has hand surgeon, requires referral needs to come from PCP. Called [facility], confirmed that pt will be getting wound care at [facility]. Set up f/u appt for 01/13 at 1000. pt was informed. (2) rash pt developed bilateral lower extremities rash about 48 hours later after pt was given Penicillin V. pt was given Benadryl and Solu-metrol. after treatment, pt state he feel much better, rash was controlled and reduced significantly. pt has no more itching. pt was prescribed Benadryl PRN and 6 days lower dosage of Prednisone wane off. (3) Hyponatremia Na 129 at d/c. pt was placed IV of NS and PO sodium. pt was given steroid for her rash which can lower sodium level from steroid's side effect. (4) Hypokalemia resolved (5) Alcohol use advise pt control (6) tobacco abuse advise quit (7) Amphetamine abuse advise pt quit (8) Hypertension." stable. pt has no more Lisinopril meds at home. Lisinopril is prescribed for pt. - ALLERGIES Allergies/Adverse Reactions: Allergies Allergy/AdvReac Type Severity Reaction Status Date / Time penicillin V Allergy Rash Verified 01/09/19 08:45 - MEDICATIONS Home Medications: Ambulatory Orders Medication Instructions Recorded Confirmed Lisinopril 40 mg PO DAILY 06/15/17 01/02/19 Oxycodone HCl/Acetaminophen 1 each PO Q4H PRN #20 tablet 01/09/19 [Oxycodone-Acetaminophen 10-325] diphenhydrAMINE [Benadryl] 25 mg PO Q4HR PRN #15 capsule 01/09/19 levoFLOXacin [Levaquin] 750 mg PO DAILY #30 tablet 01/09/19 predniSONE [Deltasone] 10 mg PO [id number] #12 tab 01/09/19 - PHYSICAL EXAM AT DISCHARGE General Appearance: positive: No acute distress, Alert. negative: Lethargic Eyes Bilateral: positive: Normal inspection, PERRL, No lid inflammation, Conjunctivae nml ENT: positive: ENT inspection nml, Pharynx nml, No signs of dehydration. negative: Purulent nasal drainage Neck: positive: Nml inspection, Thyroid nml, No JVD, Trachea midline. negative: Thyromegaly, Lymphadenopathy (R), Lymphadenopathy (L), Stiff neck, Swelling/bruising, Tracheal deviation Respiratory: positive: Chest non-tender, No respiratory distress, Breath sounds nml. negative: Wheezes, Rales, Rhonchi Cardiovascular: positive: Regular rate & rhythm, No murmur, No gallop. negative: Irregularly irregular, Extrasystoles, Tachycardia, Bradycardia, JVD present, Systolic murmur, Diastolic murmur Peripheral Pulses: positive: 2+ Abdomen: positive: Non-tender, No organomegaly, Nml bowel sounds, No distention. negative: Tenderness, Guarding, Rebound Back: positive: Nml inspection. negative: CVA tenderness (R), CVA tenderness (L) Skin: positive: Warm, Dry, Other (pt has surgery wound on right hand. rash in bilateral lower extremities were significant reduced. No tenderness or swelling or warm). negative: Cyanosis, Diaphoresis, Pallor Extremities: negative: Calf tenderness, Jose A's sign/cords Neurologic/Psychiatric: positive: Oriented x3, Motor nml, Sensation nml, Mood/affect nml. negative: Weakness, Sensory loss, Facial droop, Slurred/abnml speech, Depressed mood/affect - LABS Result Diagrams: 01/09/19 05:20 01/09/19 05:20 - SEPSIS Current Stage of Sepsis: Resolved Possible source of Sepsis: Skin/soft tissue Sepsis Criteria: Recorded Heart Rate greater than 90 bpm, WBC count greater than 12,000 or less than 4000 - FOLLOW UP Follow Up: you were found to have severe cellulitis with abscess. You had I/D procedure done by orthopedics in hospital. you are prescribed antibiotics and pain meds for continuing of care. please followup orthopedics office on 01/13 10 am, please followup [facility] for wound care. please followup your PCP in early next week and have CBC and CMP to monitor for you, and followup ID as out-pt Our child welfare social worker also schedule a hand speciality with your PCP referral MAHENDRA please followup orthopedics office on 01/13 10 am, please followup [facility] for wound care. please followup your PCP in early next week and have CBC and CMP to monitor for you, and followup ID as out-pt Our child welfare social worker also schedule a hand speciality with your PCP referral MAHENDRA Should your symptoms return or worse, you may present ER or call 911 for help. - TIME SPENT Time Spent in Discharge (Minutes): 80
[2019-01-09 14:05] VITALS: BP 141/78
[2019-01-10] MEDS ORDERED: predniSONE 20 MG TABLET PO SCH (08:00)
== END 2019-01-09 14:30 | disposition home or self-care (01) | DRG 854 ==
LOC: ED 15:47 → UNDOADMIN 20:14 → MS2 20:14 → MS3 01-05 → UNDODISIN 01-09 14:30
PROVIDERS: ADMIT Internal Medicine; ATTEND Nurse Practitioner Gerontology
PROC: 0J9J0ZZ Drainage of Right Hand Subcutaneous Tissue and Fascia, Open Approach (ICD-10-PCS; 2019-01-03)
PROC: 01N50ZZ Release Median Nerve, Open Approach (ICD-10-PCS; 2019-01-03)
PROC: 0L950ZZ Drainage of Right Lower Arm and Wrist Tendon, Open Approach (ICD-10-PCS; principal; 2019-01-03 14:00)
PROC: 0J9J0ZZ Drainage of Right Hand Subcutaneous Tissue and Fascia, Open Approach (ICD-10-PCS; 2019-01-05)
PROC: 0JBG0ZZ Excision of Right Lower Arm Subcutaneous Tissue and Fascia, Open Approach (ICD-10-PCS; 2019-01-08)
DX: A40.8 Other streptococcal sepsis (principal); L03.113 Cellulitis of right upper limb; E87.1 Hypo-osmolality and hyponatremia; L02.511 Cutaneous abscess of right hand; M72.8 Other fibroblastic disorders; E87.6 Hypokalemia; L27.1 Localized skin eruption due to drugs and medicaments taken internally; T36.0X5A Adverse effect of penicillins, initial encounter; Y92.230 Patient room in hospital as the place of occurrence of the external cause; F15.10 Other stimulant abuse, uncomplicated; I10 Essential (primary) hypertension; S40.812A Abrasion of left upper arm, initial encounter; S40.811A Abrasion of right upper arm, initial encounter; X50.3XXA Overexertion from repetitive movements, initial encounter; Y93.H3 Activity, building and construction; Y92.008 Other place in unspecified non-institutional (private) residence as the place of occurrence of the external cause; F17.200 Nicotine dependence, unspecified, uncomplicated; Z88.0 Allergy status to penicillin; Z87.39 Personal history of other diseases of the musculoskeletal system and connective tissue; Z79.899 Other long term (current) drug therapy
CPT/HCPCS: 36415; 73201; 76882; 80048; 80053; 80202; 80306; 81001; 82550; 83605; 83690; 83735; 84100; 85025; 85610; 85651; 86140; 87040; 87070; 87077; 87205; 96365; 96375; 96376; 99284; 99285; A9270; J1170; J3370; J7120; Q9967

== ENCOUNTER 2020-02-03 10:03 | Outpatient (CLI) | payer MEDICAID ==
[2020-02-03 14:40] LABS: BASOPHILS # (AUTO) 0.1 10^3/uL (0.0-0.1); BASOPHILS % (AUTO) 0.7 %; EOSINOPHILS # (AUTO) 0.2 10^3/uL (0.0-0.7); EOSINOPHILS % (AUTO) 2.9 %; HGB - HEMOGLOBIN 13.3 g/dL (14.0-18.0); MEAN CORPUSCULAR HEMOGLOBIN 28.9 pg (27.0-31.0); MEAN CORPUSCULAR HGB CONC 32.4 g/dL (32.0-36.0); MEAN CORPUSCULAR VOLUME 88.9 fL (80.0-94.0); MEAN PLATELET VOLUME 10.3 fL (7.4-11.4); MONOCYTES # (AUTO) 0.6 10^3/uL (0.0-1.0); MONOCYTES % (AUTO) 8.6 %; NEUTROPHILS % (AUTO) 58.4 %; PLT - PLATELET COUNT 247 10^3/uL (130-450); RED BLOOD COUNT 4.61 10^6/uL (4.70-6.10); WHITE BLOOD COUNT 6.9 x10^3/uL (4.8-10.8)
[2020-02-03 15:02] LABS: ALBUMIN 4.1 g/dL (3.2-5.5); ALBUMIN/GLOBULIN RATIO 1.1 (1.0-2.2); ALKALINE PHOSPHATASE 104 IU/L (42-121); ALT ALANINE AMINOTRANSFERASE 28 IU/L (10-60); AST ASPARTATE AMINOTRANSFERASE 31 IU/L (10-42); BUN - BLOOD UREA NITROGEN 11 mg/dL (6-20); CALCIUM 9.2 mg/dL (8.5-10.3); CARBON DIOXIDE - CO2 25 mmol/L (21-32); CHLORIDE 105 mmol/L (101-111); CHOL/HDL RATIO 4.1 (<5.0); CHOLESTEROL 232 mg/dL; CREATININE 0.6 mg/dL (0.6-1.2); GLUCOSE 127 mg/dL (70-100); HDL CHOLESTEROL 56 mg/dL; LDL CHOLESTEROL,CALCULATED 147 mg/dL; LDL/HDL RATIO 2.6 (<3.6); SODIUM 140 mmol/L (135-145); VLDL CHOLESTEROL 29 mg/dL
[2020-02-03 15:03] LABS: CREATININE,URINE 132.4 mg/dL; MICROALBUM/CREATININE RATIO,UR 3.8 ug/mg (<30.0); MICROALBUMIN,URINE 0.5 mg/dL (0-300.0)
[2020-02-03 19:43] LABS: HEMOGLOBIN A1c% 6.2 % (4.27-6.07)
== END 2020-02-03 10:04 | disposition home or self-care (01) ==
LOC: LAB.S 10:03
PROVIDERS: ATTEND Physician Assistant
DX: R73.02 Impaired glucose tolerance (oral) (principal); M10.9 Gout, unspecified; E78.5 Hyperlipidemia, unspecified; I10 Essential (primary) hypertension
CPT/HCPCS: 36415; 80050; 80061; 82043; 82570; 83036; 83721; 84153

== ENCOUNTER 2020-02-16 07:00 | Outpatient (CLI) | payer MEDICAID ==
--- NOTE | 2020-02-17 12:07 | XRAY Report ---
PROCEDURE: Wrist 3 View RT INDICATIONS: R WRIST PAIN TECHNIQUE: 3 views of the wrist were acquired. COMPARISON: Wrist x-ray 8 12/28/2018 FINDINGS: Bones: No fractures or dislocations. In the interval since the prior exam, there has been significan t destructive, erosive change within the distal radius and ulna with near complete destruction of the ulnar head and significant portions of the radial head. There is erosion also extend to the carpal b ones demonstrating significant areas of destruction and collapse within the scaphoid, lunate, fusifor m and triquetrum. There is been progressive degenerative change at the first CMC and MCP joint. Soft tissues: No suspicious soft tissue calcifications. IMPRESSION: Significant erosive changes at the distal radius and ulna as well as carpal bones as above. Appearanc e raises significant concern for osteomyelitis. Other erosive etiology such as arthritides should be considered if appropriate. Reviewed by: Julieta Lal MD on 02/17/2020 12:06 PM [facility] Approved by: Julieta Lal MD on 02/17/2020 12:06 PM PST Station ID: [id number]
== END 2020-02-16 23:59 | disposition home or self-care (01) ==
LOC: DI.N 07:00
PROVIDERS: ATTEND Orthopaedic Surgery
DX: M19.031 Primary osteoarthritis, right wrist (principal)

== ENCOUNTER 2022-02-09 09:10 | Day surgery (SDC) | payer MEDICAID ==
[2022-02-09] MEDS ORDERED: PROPOFOL 200 MG/20 ML VIAL IVP ONE ×5 (09:25→11:03)
[2022-02-09] MEDS ORDERED: PROPOFOL 500 MG/50 ML 500 MG/50 ML VIAL ONE (09:25)
[2022-02-09] MEDS ORDERED: LACTATED RINGERS 1,000 ML IV ONE ×2 (09:37→11:30)
--- NOTE | 2022-02-09 10:00 | ANESTHESIA ---
Pre-Anesthesia VS, & Labs - Diagnosis screening colonoscopy - Procedure colonoscopy Vital Signs: Temp Pulse Resp BP Pulse Ox O2 Flow Rate 36.8 C 75 21 149/94 H 100 02/09/22 09:38 02/09/22 09:38 02/09/22 09:38 02/09/22 09:38 02/09/22 09:38 Height: 5 ft 10 in Weight (kg): 78 kg Body Mass Index: 24.6 BMI Classification: Normal - NPO Other (prep at 6am) Home Medications and Allergies Home Medications: Ambulatory Orders Escitalopram Oxalate 20 mg PO DAILY 02/09/22 Losartan/Hydrochlorothiazide [Losartan-Hctz 100-12.5 mg Tab] 1 each PO DAILY 02/09/22 Escitalopram Oxalate 20 mg PO DAILY 02/09/22 Losartan/Hydrochlorothiazide [Losartan-Hctz 100-12.5 mg Tab] 1 each PO DAILY 02/09/22 Allergies/Adverse Reactions: Allergies Allergy/AdvReac Type Severity Reaction Status Date / Time penicillin V Allergy Rash Verified 01/09/19 08:45 Anes History & Medical History - Anesthetic History Anesthesia Complications: reports: No previous complications - Medical History Cardiovascular: reports: Hypertension Pulmonary: reports: None Gastrointestinal: reports: None Neuro: reports: None Musculoskeletal: reports: Other Endocrine/Autoimmune: reports: None Skin: reports: Other Smoking Status: Current every day smoker History of Cancer?: No - Surgical History Orthopedic: reports: Carpal Tunnel surgery, Other (osteomylitis, bone grafts, fused wrist, non-union several surgeries) Exam Dental: WNL, Other (edentulous) Mallampati classification: II Thyromental Distance: greater than 6 cm Respiratory: Lungs clear Cardiovascular: Regular rate Plan Anesthesia Type: Total IV Consent for Procedure(s) Verified and Reviewed: Yes Code Status: Attempt Resuscitation ASA classification: 2-Mild systemic disease Is this case an emergency?: No
[2022-02-09 11:56] VITALS: BP 115/75
--- NOTE | 2022-02-09 14:46 | ANESTHESIA POST OP EVALUATION ---
Anesthesia Post Eval - Post Anesthesia Eval Vitals: Last Vital Signs Temp 36.5 C 02/09/22 11:30 Pulse 69 02/09/22 11:56 Resp 18 02/09/22 11:56 BP 115/75 02/09/22 11:56 Pulse Ox 100 02/09/22 11:56 O2 Flow Rate CV Function Including HR & BP: Stable Pain Control: Satisfactory Nausea & Vomiting: Negative Mental Status: Baseline Respiratory Status: Airway Patent Hydration Status: Satisfactory Anesthesia Complications: None
== END 2022-02-09 09:11 | disposition home or self-care (01) ==
LOC: SDS 09:10
PROVIDERS: ATTEND Surgery
PROC: 0DBN8ZZ Excision of Sigmoid Colon, Via Natural or Artificial Opening Endoscopic (ICD-10-PCS; 2022-02-09)
PROC: 0DBM8ZZ Excision of Descending Colon, Via Natural or Artificial Opening Endoscopic (ICD-10-PCS; principal; 2022-02-09 07:30)
DX: Z12.11 Encounter for screening for malignant neoplasm of colon (principal); C18.7 Malignant neoplasm of sigmoid colon; D12.4 Benign neoplasm of descending colon; D12.7 Benign neoplasm of rectosigmoid junction; D12.5 Benign neoplasm of sigmoid colon; F17.210 Nicotine dependence, cigarettes, uncomplicated; F41.9 Anxiety disorder, unspecified
CPT/HCPCS: 45380; 45385; J7120